=== PATIENT | male | born 1975 | race Caucasian/White ===

== ENCOUNTER 2019-09-23 06:48 | Outpatient (CLI) | payer BC, SELFPAY ==
--- NOTE | ~2019-09-23 | MR_ITS ---
EXAMINATION: MR thoracic spine wo con DATE: 09/23/2019 08:18 INDICATION: Left-sided numbness. Neck and back myopathy. TECHNIQUE: Magnetic resonance imaging (MRI) of the thoracic spine was performed without intravenous c ontrast. Sagittal localizer T1-weighted FSE of the cervical spine was obtained. Thoracic spine sequen shahriar included sagittal T2-weighted FSE, sagittal T1-weighted FSE, sagittal T2-weighted FS FSE, and axi al T2-weighted FSE. COMPARISON: None FINDINGS: There is 7 degrees dextrocurvature of thoracic spine. Vertebral body heights and interverte bral disc heights are normal in thoracic spine. There is a hemangioma in T7 vertebral body. The discs do not extend beyond the endplate margins. At T10-T11, there is severe right and moderate left facet joint osteoarthritis. There is multilevel mild facet joint osteoarthritis. There is mild neural fora renae stenosis bilaterally at T1-T2 and T10-T11. The spinal cord signal intensity is normal in thorac ic spine. IMPRESSION: 1. Mild thoracic spondylosis. Reviewed, dictated and finalized at location A.
--- NOTE | ~2019-09-23 | MR_ITS ---
EXAMINATION: MR cervical spine wo con DATE: 09/23/2019 08:17 INDICATION: Left-sided numbness. Neck and back myopathy. TECHNIQUE: Magnetic resonance imaging (MRI) of the cervical spine was performed without intravenous c ontrast. Sequences included sagittal T2-weighted FSE, sagittal T2-weighted FS FSE, sagittal T1-weight ed FSE, axial MERGE, and axial T2-weighted FSE. COMPARISON: None FINDINGS: There is 7 degrees levocurvature of cervical spine. Vertebral body heights are normal. Ther e is mildly decreased disc height at C5-C6 and moderately decreased disc height at C6-C7. There is in creased T2-weighted signal intensity in the right side of the spinal cord at C5-C6, consistent with m yelomalacia. The following disc levels are specifically discussed: C2-C3: The disc does not extend beyond the endplate margin. There is moderate right uncovertebral devyn nt osteoarthritis. There is mild bilateral facet joint osteoarthritis. There is moderate right neural foraminal stenosis. There is no central canal stenosis. C3-C4: The disc does not extend beyond the endplate margin. There is no uncovertebral joint osteoarth ritis. There is mild right and moderate left facet joint osteoarthritis. There is no neural foraminal stenosis. There is no central canal stenosis. C4-C5: The disc does not extend beyond the endplate margin. There is no uncovertebral joint osteoarth ritis. There is mild bilateral facet joint osteoarthritis. There is no neural foraminal stenosis. The re is no central canal stenosis. C5-C6: The disc is bulging with superimposed right central extrusion. There is severe right and mild left uncovertebral joint osteoarthritis. There is mild bilateral facet joint osteoarthritis. There is moderate right and mild left neural foraminal stenosis. There is severe central canal stenosis with ventral and dorsal indentation of the spinal cord. C6-C7: The disc is bulging. There is severe bilateral uncovertebral joint osteoarthritis. There is no facet joint osteoarthritis. There is moderate bilateral neural foraminal stenosis. There is moderate central canal stenosis with ventral and dorsal indentation of the spinal cord. C7-T1: The disc does not extend beyond the endplate margin. There is no uncovertebral joint osteoarth ritis. There is moderate bilateral facet joint osteoarthritis. There is no neural foraminal stenosis. There is no central canal stenosis. IMPRESSION: 1. Severe cervical spondylosis. 2. Myelomalacia at C5-C6. Reviewed, dictated and finalized at location A.
== END 2019-09-23 06:49 | disposition home or self-care (01) ==
LOC: CHSIMG 06:53
PROVIDERS: PCP Internal Medicine; Visit Provider Internal Medicine
DX: G72.9 Myopathy, unspecified (principal); M54.2 Cervicalgia; M54.9 Dorsalgia, unspecified
CPT/HCPCS: 72141; 72146

== ENCOUNTER 2021-02-06 09:29 | Outpatient (CLI) | payer BC, SELFPAY ==
--- NOTE | ~2021-02-06 | XR_ITS ---
EXAMINATION: XR sacroiliac joints min 3V DATE: 02/06/2021 10:14 INDICATION: Back and left leg pain. TECHNIQUE: 3 views of the sacroiliac joints were obtained. COMPARISON: None. FINDINGS: Bone alignment is normal. No fracture. The sacroiliac joints are normal. IMPRESSION: 1. Normal sacroiliac joints. Reviewed, dictated and finalized at location A. MBLY ASSOCIATE
--- NOTE | ~2021-02-06 | XR_ITS ---
XR hip LT min 2V 02/06/2021 10:14 Indication: Left hip pain Procedure: 2 views left hip Comparison: No prior studies for comparison. Findings: No fracture, subluxation or dislocation. There is anatomic alignment. Surrounding osseous s tructures within normal limits. No soft tissue abnormality. No foreign bodies. Impression: 1: No acute bone or joint abnormality. Reviewed, dictated and finalized at location B. CAL INSTRUMENTS SUPERVISOR Impression: 1: No acute bone or joint abnormality.
--- NOTE | ~2021-02-06 | XR_ITS ---
EXAMINATION: XR lumbar spine 2-3V DATE: 02/06/2021 10:14 INDICATION: Back and left leg pain. TECHNIQUE: 4 views of lumbar spine were obtained. COMPARISON: None. FINDINGS: There is 9 degrees levocurvature of lumbar spine. There are Schmorl's nodes at multiple lev els. Intervertebral disc heights are normal. There are endplate osteophytes at all levels. There is m ultilevel mild facet joint osteoarthritis. IMPRESSION: 1. Mild lumbar spondylosis. Reviewed, dictated and finalized at location A. RINTENDENT PIPELINES IMPRESSION: 1. Mild lumbar spondylosis.
== END 2021-02-06 09:30 | disposition home or self-care (01) ==
LOC: CHSIMG 09:31
PROVIDERS: PCP Internal Medicine; Visit Provider Internal Medicine
DX: M54.9 Dorsalgia, unspecified (principal); M79.605 Pain in left leg
CPT/HCPCS: 72100; 72202; 73502

== ENCOUNTER 2022-05-15 10:09 | Outpatient (CLI) | payer OTHER, SELFPAY ==
--- NOTE | ~2022-05-15 | XR_ITS ---
EXAMINATION: XR lumbar spine min 4V DATE: 05/15/2022 10:22 INDICATION: Spondylosis without myelopathy or radiculopathy TECHNIQUE: Anteroposterior, lateral in neutral, flexion and extension, and bilateral oblique views of the lumbar spine, and cone-down lateral view of the lumbosacral junction were obtained. COMPARISON: 02/06/2021 FINDINGS: Vertebral body alignment is normal. There is no hypermobility with flexion or extension. Th e vertebral body heights are normal. There is no fracture. There is mild loss of intervertebral disc space height at L5-S1. Small degenerative osteophytes project from the anterior endplates of multiple vertebral bodies. There is multilevel mild facet joint osteoarthritis. IMPRESSION: 1. Mild lumbar spondylosis without acute findings or significant interval change. Reviewed, dictated and finalized at location A. TIC ATTACHER ZIGZAG IMPRESSION: 1. Mild lumbar spondylosis without acute findings or significant interval becky torres
== END 2022-05-15 10:10 | disposition home or self-care (01) ==
LOC: ANHIMG 10:12
PROVIDERS: PCP Internal Medicine; Visit Provider Neurological Surgery
DX: M47.816 Spondylosis without myelopathy or radiculopathy, lumbar region (principal)
CPT/HCPCS: 72110

== ENCOUNTER 2023-01-18 08:32 | Outpatient (CLI) | payer OTHER, SELFPAY ==
--- NOTE | 2023-01-18 08:52 | ECG_ITS ---
Measurements Intervals [place] Rate: 64 P: 55 ID: 151 QRS: 65 QRSD: 108 T: 70 QT: 417 QTc: 431 Interpretive Statements SINUS RHYTHM DELAYED PRECORDIAL R/S TRANSITION BASELINE WANDER- V2-V5 BORDERLINE ECG NO PREVIOUS ECG AVAILABLE FOR COMPARISON Electronically Signed On 01-18-2023 9:18:51 [place] by Prashanth Telles D.O.
[2023-01-18 08:59] LABS: Hemoglobin 15.4 g/dL (14.0-18.0); Mean Corpuscular HGB Conc 34.2 g/dL (32.0-36.0); Mean Corpuscular Hemoglobin 32.8 pg (27.0-31.0); Mean Corpuscular Volume 95.9 fL (78.0-102.0); Mean Platelet Volume 8.2 fl (8.7-11.0); Platelet Count Result 237 K/mm3 (150-420); Red Blood Count 4.69 M/mm3 (4.70-6.10); White Blood Count 8.1 K/mm3 (4.8-10.8)
[2023-01-18 09:00] LABS: Appearance Urine Cloudy (Clear); Bilirubin Urine Negative (Negative); Blood Urine Negative (Negative); Color Urine Yellow (Yellow); Glucose Urine UA Negative (Negative); Ketones Urine 1+ (Negative); Leukocyte Esterase Ur Negative LEU/UL (Negative); Nitrate Urine Negative (Negative); Protein Urine Trace (Negative); Specific Grav Ur >= 1.030 (1.010-1.020); Urobilinogen Urine 0.2 mg/dL (0.2-1.0)
[2023-01-18 09:05] LABS: Add Urine Microscopic? YES; Amorphous Sediment Urine Few; Bacteria Urine 2+ /hpf; RBC Urine None seen /hpf (0-2); WBC Urine None seen /hpf (0-3)
[2023-01-18 09:14] LABS: INR 0.9; Partial Thromboplastin Time 27.1 SEC (23.90-30.70); Prothrombin Time 10.3 Seconds (9.50-12.10)
[2023-01-18 09:59] LABS: Anion Gap 6 mmol/L (8-16); Blood Urea Nitrogen 11 mg/dL (7-18); Calcium 9.1 mg/dL (8.5-10.1); Carbon Dioxide 32 mmol/L (21-32); Chloride 103 mmol/L (98-108); Estimated Glomerular Filt Rate > 60; Glucose 118 mg/dL (70-99); Osmolality Calculated 292 mOsm/kg (285-295); Potassium 4.4 mmol/L (3.5-5.1); Sodium 141 mmol/L (136-145)
== END 2023-01-18 08:33 | disposition home or self-care (01) ==
LOC: CHSLAB 08:34
PROVIDERS: PCP Internal Medicine; Visit Provider Neurological Surgery
DX: Z01.818 Encounter for other preprocedural examination (principal); M48.062 Spinal stenosis, lumbar region with neurogenic claudication
CPT/HCPCS: 36415; 80048; 81001; 85027; 85610; 85730; 93005

== ENCOUNTER 2023-01-20 01:13 | Day surgery (SDC) | payer OTHER, SELFPAY ==
[2023-01-15 09:17] VITALS: BMI 25.4
--- NOTE | 2023-01-15 09:21 | PC.NURSE ---
Report to the Outpatient Waiting Room, entrance under the green pavilion located off [facility], at time 6:00 on date 01/20/23. Planned Procedure Time: 7:30. Time changes happen often and if your time is changed the preop area will call you the afternoon before. - You and your visitor will be asked to self-screen and do not enter if you have any COVID symptoms. - A mask is optional within the hospital at this time. Patients may have clear liquids (water, carbonated beverages, clear teas, apple juice) until 3 hours prior to surgery with a maximum of 20 ounces. - No food from midnight until time of surgery Take the following medications with a SIP of water the morning of surgery: NONE DO NOT STOP ANY OF YOUR OTHER PRESCRIPTION MEDICATIONS PRIOR TO SURGERY ?EXCEPT THE FOLLOWING Medications to discontinue per physician: N/A Date to take last dose: N/A Please no make-up, nail thai, hairspray, perfume, deodorant, or body powder the day of surgery. No jewelry (including any body piercings) or valuables the day of surgery, leave them at home. Please take a shower or bath the night before, or the morning of, surgery with an antibacterial soap. Wear comfortable, loose fitting clothing. - Jewelry must be removed prior to entering the operating room. Rings and piercings that are not removed may be cut off. - The hospital will not accept responsibility for valuables. - Please leave all valuables, including medications, at home the day of surgery. If you are going home after surgery, a licensed dolly driver must drive you home. - NO public transportation without another adult if you receive anesthesia. - We recommend that an adult stay with you for 24 hours following discharge. - We also recommend that you do not drive, make important decision, drink alcoholic beverages, or take any drugs that were not prescribed by your health care provider for at least 24 hours after your discharge time. Follow any additional instructions given to you from your surgeon. If you or anyone in your household have experienced Covid symptoms in the past week, please notify your surgeon or the nurse liaison at the phone number below for possible testing. Telephone instructions given to FRANKY MCMULLEN and asked if any additional questions and then verbalized understanding. Patient advised to call surgeon office or pre surgery nurse liaison [phone] if any additional questions.
[2023-01-20] VITALS (8 sets, daily range): BP systolic 102–127; BP diastolic 71–84; PULSE 51–70; RESP 12–20; TEMP 36.5–37.1; O2SAT 96–100
--- NOTE | ~2023-01-20 | XR_ITS ---
EXAMINATION: XR fluoroscopy no charge DATE: 01/20/2023 09:49 INDICATION: Lumbar decompression, L4-L5. TECHNIQUE: A single lateral intraoperative fluoroscopic view of the lumbar spine was obtained. I was not present. Fluoroscopy exposure time was 5 seconds. COMPARISON: Lumbar spine radiographs 05/15/2022 FINDINGS: There is mild lumbar spondylosis. An instrument overlies the posterior elements at L4-L5. IMPRESSION: 1. Mild lumbar spondylosis. Reviewed, dictated and finalized at location A. P MAINT ENG IMPRESSION: 1. Mild lumbar spondylosis.
[2023-01-20] MEDS: SCOPOLAMINE 1.5 MG PATCH TRANSDERM (07:00)
[2023-01-20] MEDS: LACTATED RINGERS 1,000 ML 30 ML IV CONT ×2 (07:00→09:50)
--- NOTE | 2023-01-20 07:47 | WPDANESEPPF ---
Anes - Initial Pre Proc Eval Procedure: Operation Date: 01/20/23 08:00 Proposed Procedures p Lumbar Decompression L 4-5 - Sandra Park MD Date/Time: 01/20/23 07:47 Surgeon: Sandra Park MD Pre Op Diagnosis: Lumbar Stenosis Patient Data Age: 47 Gender: M Height: 1.98 m Weight: 99.8 kg Allergies Allergy/AdvReac Type Severity Reaction Status Date / Time No Known Allergies Allergy Verified 01/15/23 09:16 Home Medications Medication Instructions Recorded Confirmed Type pantoprazole 40 mg tablet,delayed 40 mg PO QAM 04/07/22 01/15/23 History release Patient hx anesthesia problems: post op nausea/vomiting (scopolamine patch applied) Family hx anesthesia problems: none Results Review: All pre-operative results and documents have been reviewed as part of the pre-operative evaluation. [facility] Past Medical History Medical History Back pain Lumbar radiculopathy Lumbar spondylosis Neck pain Surgical History Surgical History H/O neck surgery History of lumbar surgery Family History Family History Other Diabetes mellitus Heart disease Hypertension Social History Social History Smoking packs per day: 1 Smoking cigarettes per day: 20.0 Years smoked: 10 Smoking pack-years: 10.00 Smoking status: Current every day smoker Tobacco type: cigarettes Alcohol intake: current Drinks per week: 8 Substance use: never Substance use type: does not use Lack of Transportation: No Lack of Food: Never True Current Housing: I Have Housing Concerned About Future Housing: No Difficulty Paying Gas/Electric Bills: No Difficulty Paying for Meds: No Currently Unemployed: No Education: Decline to Answer Difficulty w/ Childcare or Family Care: No Living arrangements: with family 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 Informed Consent: The patient's anesthetic plan and its attendant risks and benefits were discussed with the patient/family/POA. Questions were solicited and answers provided to the satisfaction of the patient/family/POA.
--- NOTE | 2023-01-20 08:07 | PM.IMHP ---
H&P: HPI History of Present Illness Date/Time: 01/20/23 08:07 Chief Complaint: Wesley Stock is a 47 year old male who originally presented and was seen by SKYLAR White with a referral from Dr. Navarrete for evaluation of low back pain with a subjective complaints of left leg weakness.? The patient reports a longstanding history of low back pain, dating back to 2014 , when he underwent a L5-S1 micro diskectomy at [facility] with Dr. Jefferson. he stated that after that surgery he had resolution of his symptoms for approximately 2 years.? The patient has also undergone an ACDF C5-6-[address] Whitaker and 2019.? His neck pain as well as upper extremity radicular symptoms have completely resolved and remain pain free. In 2016 he experienced recurrence of his bilateral low back pain as well as pain to his left lower extremity along with weakness. ? The patient reports that he has bilateral low back pain that extends in a posterior distribution from his buttock to his toes.? He does report a sensation of numbness, tingling, burning, weakness and a heavy sesation to his left lower extremity.? He denies any bowel or bladder incontinence.? He reports that with extended periods of walking and upon sitting his back pain remains. He does state that the pain to his bilateral low back and left lower extremity is also exacerbated with sitting and standing for long periods of time, walking for long distances, ascending and descending stairs and standing on concrete.? He does report that his pain is improved with the application of heat and ice.? He describes his pain as sharp and a throbbing sensation.? He denies any gait dysfunction or falls.? He has recently completed physical therapy in January of 2022 which he reports as giving no benefit.? His primary care physician prescribed meloxicam and Cymbalta, both of which provided him with positive results, calms things down .? An MRI of the lumbar spine as well as AP lateral and dynamic plain x-rays of lumbar spine show progression of spondylotic changes at L4-5 with disc desiccation, loss of disc space height, disc bulge, which in concert with ligamentous hypertrophy contribute to moderate to severe central stenosis at L4-5, progressed from a 2021 study.? AP lateral and dynamic plain x-rays? show multilevel spondylotic changes without significant listhesis or dynamic instability The patient is increasingly bothered by his symptoms.? He has had an epidural steroid injection? since our initial visit.? This gave significant temporary relief of his pain but did not last for longer than 1-2 weeks. He presents for lumbar decompression at L4-5 [facility] Past Medical History Medical History Back pain Lumbar radiculopathy Lumbar spondylosis Neck pain Surgical History Surgical History H/O neck surgery History of lumbar surgery Family History Family History Other Diabetes mellitus Heart disease Hypertension Social History Social History Smoking packs per day: 1 Smoking cigarettes per day: 20.0 Years smoked: 10 Smoking pack-years: 10.00 Smoking status: Current every day smoker Tobacco type: cigarettes Alcohol intake: current Drinks per week: 8 Substance use: never Substance use type: does not use Lack of Transportation: No Lack of Food: Never True Current Housing: I Have Housing Concerned About Future Housing: No Difficulty Paying Gas/Electric Bills: No Difficulty Paying for Meds: No Currently Unemployed: No Education: Decline to Answer Difficulty w/ Childcare or Family Care: No Living arrangements: with family 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
[2023-01-20] MEDS: ceFAZolin 2 GM/D5W 50 ML 2 GM/50 ML BAG IVPB (08:14)
--- NOTE | 2023-01-20 08:14 | WPDHPUPDATE1 ---
History and Physical Update Update Date/Time: 01/20/23 08:14 History and Physical has been reviewed, including an updated exam of the patient. There are NO changes in the patient's condition. Risks, benefits, and alternatives have been discussed and questions answered. Patient agrees to proceed with procedure.
[2023-01-20] MEDS: BUPivacaine HCL 0.5% 10 ML AMP INFILTRATE (08:55)
[2023-01-20] MEDS: LIDO 1%/EPINEPHRINE 1:100,000 50 ML VIAL 10 ML INFILTRATE (08:55)
--- NOTE | 2023-01-20 09:31 | W.PM.PROC2 ---
Procedure Note - Detailed Date of Procedure 01/20/23 Pre-op Diagnosis Lumbar Stenosis Post-op Diagnosis Same Procedure Performed lumbar laminectomy and foraminotomies L4-5 Surgeon Sandra Park MD Anesthesia General Indications Wesley Stock is a very pleasant? 47 year old? male who presents at the request of his primary care provider at with signs and symptoms of? claudicatory and radicular low back and lower extremity pain and sensory changes well as a subjective sense of weakness in the setting of? moderate to severe central stenosis at L4-5 on imaging.? Mr. Stock has tried treatments that include? a formal course of physical therapy in January 2022 without relief of his pain.? he has also had an epidural steroid injection targeting caudal to the lumbar stenosis that gave significant temporary relief of his pain but has not given lasting relief. In the office the most concerning symptom to the patient was that he is increasingly limited in terms of his overall activity by these symptoms.? He struggles even to sleep through the night without pain. The patient and I have had an extended discussion in the office today regarding the options for management of these clinical symptoms and radiographic findings. We have discussed the option of additional physical therapy or repeated interventional pain management strategies including HIRA or ablative procedures. In this case we have more specifically discussed that? as these have not given lasting relief to date, the likelihood repeated attempts would offer a different result is small. Finally, we have generally discussed the option of surgery. In the absence of functional deficits, I have explained that my preference is to exhaust non surgical options prior to consideration of surgery. However, we have discussed that as he has been unable to obtain durable relief of symptoms with non surgical measures that it would be very reasonable to consider surgical intervention. In this case we have discussed that surgery would likely entail a lumbar decompression at L4-5.?? We have discussed the indication and risks of surgery including but not limited to bleeding, infection, CSF leak, numbness weakness paralysis stroke coma even . He acknowledges the risks and asks us to proceed. Description of Procedure The patient was brought into the operating room where general anesthesia was induced.? Appropriate monitoring was obtained.? The patient was turned into a prone position on the Mariano table with a Christopher frame.? Extremities were padded.? The patient was secured with straps to the table.? Localization was performed using intraoperative fluoroscopy and the L4-5 levels were identified. The patient's back was prepped and draped sterilely.? A surgical time out was performed.? The planned incision was infused with local anesthetic.? The incision was made using a #10 skin blade.? Hemostasis was achieved. Self retaining retractors were placed and advanced.? The? L4? spinous process was identified and the muscle was dissected off of the spinous process and lamina of L4 using bovie electrocautery.? Self retaining retractors were advanced.? A curette was placed under the L4 lamina and the levels were confirmed again using intraoperative fluoroscopy.?Using a Jordon rongeur the spinous processes were removed at L4 Attention was first turned to L4-5 level.?? The residual spinous process of L4 was removed using a rongeur.? The lamina was drilled using a high speed vini drill with a matchstick tip.? The lamina was drilled lateral to the level of the facet complex until, inferiorly, ligament was visible.? The lamina was thinned and then dissected from the lamina using a curette.? The remaining lamina and medial facet at L4-5 were removed with kerossen punches.? The ligament was then carefully dissected away from the thecal sac and removed using kerossen punches.?The inferior epidural fat was dissected away from the thecal sac and removed.
== END 2023-01-20 11:05 | disposition home or self-care (01) ==
PROVIDERS: PCP Internal Medicine; Visit Provider Neurological Surgery
PROC: (CPT 63005; principal; 2023-01-20 08:00)
DX: M48.062 Spinal stenosis, lumbar region with neurogenic claudication (principal); M43.06 Spondylolysis, lumbar region; F17.210 Nicotine dependence, cigarettes, uncomplicated; Z98.890 Other specified postprocedural states; Z82.49 Family history of ischemic heart disease and other diseases of the circulatory system
CPT/HCPCS: 63047; 99199; A9270; J0690; J1100; J1170; J2250; J2405; J2704; J3010; J7120

== ENCOUNTER 2024-02-23 09:44 | Outpatient (CLI) | payer OTHER, SELFPAY ==
--- NOTE | ~2024-02-23 | XR_ITS ---
3 VIEWS LUMBAR SPINE Ordering provider: Lennox Ann MD History: . extreme low back pain, sweeping out grain bin X Wednesday . Comparison: None. FINDINGS: VERTEBRAL BODIES: No visible fracture or subluxation. Degenerative changes of the spine. DISK SPACES: Normal. SOFT TISSUES: Mild atherosclerotic changes of the aorta. IMPRESSION: No acute osseous abnormality lumbar spine. . Reviewed, dictated and finalized at location A. NE TEST CELL TECHNICIAN
== END 2024-02-23 09:45 | disposition home or self-care (01) ==
LOC: CHSIMG 09:46
PROVIDERS: PCP Internal Medicine; Visit Provider Internal Medicine
DX: M54.50 Low back pain, unspecified (principal)
CPT/HCPCS: 72100

== ENCOUNTER 2024-05-04 02:19 | Day surgery (SDC) | payer OTHER, SELFPAY ==
[2024-02-21 14:55] VITALS: BMI 25.4
--- NOTE | 2024-03-14 08:25 | SUR.PREOP ---
0740- Attempted to call patient, no answer. Attempted to notify patient's , [place], no answer. Left voicemail.
--- NOTE | 2024-03-14 08:31 | SUR.PREOP ---
Pt called in and left message on PAT nurse's phone. Pt is running a fever and will reschedule. Called pt and received VM. Message left requesting a call back.
--- OUTSIDE RECORDS SUMMARY | 2024-03-20 09:14 | XMS_ITS | Encounter Summary ---
Author Organization [facility] Address [address] [place] [address]. 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
--- OUTSIDE RECORDS SUMMARY | 2024-03-20 09:14 | XMS_ITS | Encounter Summary ---
Author Organization [facility] Address [address] [place] [address]. [place] [address] [place] [address] Care Team Providers Care Defective Cigarette Slitter Name Role Phone Lennox Ann MD Primary Care Provider [phone] Reason for Referral * Imaging (Routine) - Closed Specialty Diagnoses / Procedures Referred By Malina bonilla Referred To Contact RADIOLOGY Diagnoses Pain of lumbar spine Procedures MRI LUMB SPINE WWO CON MRI LUMB SPINE WWO CON David Tarango PA-C [address] [place] [address] Phone: tel: fax: Referral ID Status Reason Start Date Expiration Date Visits Re quested Visits Authorized [id number] Closed MRI 09/28/2023 09/27/2024 1 1 Reason for Visit * Imaging (Routine) - Closed Specialty Diagnoses / Procedures Referred By Meaganac chad Referred To Contact RADIOLOGY Diagnoses Pain of lumbar spine Procedures MRI LUMB SPINE WWO CON MRI LUMB SPINE WWO CON David Tarango PA-C [address] [place] [address] Phone: tel: fax: Referral ID Status Reason Start Date Expiration Date Visits Re quested Visits Authorized [id number] Closed MRI 09/28/2023 09/27/2024 1 1 Encounter Details Date Type Department Care Team (Latest Contact Info) Description 10/11/2023 8:44 AM CDT - 10/11/2023 11:59 PM CDT Hospital Encounter [facility] [address] [place] [address] David Tarango, ROSANNAC [address] [place] [address] Discharge Disposition: Home or Self Care (Routine Discharge) Social History Tobacco Use Types Packs/Day Years Used Date Smoking Tobacco: Never Assessed Sex and Gender Information Value Date Recorded Sex Assigned at Not on file 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 Interval postsurgical changes of L4-L5 laminectomy with ill-defined enhancement along the dorsal epidural compartment, laminectomy bed, and overlying paraspinal soft tissues, likely postoperative. Small residual central protrusion suggested at L4-L5. 2. Multilevel degenerative changes in the lumbar spine. Most severe foraminal narrowing at L3-L4 through L5-S1. Additional degenerative changes elsewhere as detailed. 3. Likely reactive/degenerative edema along the lumbar endplates. Ordered By: DAVID TARANGO Interpreted By: Felix Rosa MD, 10/13/2023 9:06 AM Narrative 10/13/2023 9:23 AM CDT DATE: 10/11/2023 9:34 AM INDICATION: Low back pain. Prior lumbar surgeries, most recently and January 2023 EXAMINATION: MRI lumbar spine without and with contrast. TECHNIQUE: Multiplanar and multisequence MRI images of the lumbar spine were obtained before and after uneventful intravenous administration of 15mL GADOBENATE DIMEGLUMINE 529 MG/ML IV SOLN. COMPARISON: 10/30/2022 FINDINGS: There are 5 lumbar type vertebral bodies designated as L1 through L5; using this numbering system, the conus medullaris terminates at T12 and appears unremarkable. Since the prior examination the patient has undergone interval laminectomy at L4-L5. There is ill-defined enhancement noted along and dorsal epidural compartment, laminectomy bed, and overlying paraspinal soft tissues, likely postoperative. Otherwise again seen are post surgical changes of prior left-sided laminotomy at L5-S1. Mid to lower lumbar levoscoliosis. Slight left lateral listhesis of L4 on L5. Slight retrolisthesis of L1 on L2 and L2 on L3. Otherwise the lumbar vertebral alignment, vertebral body heights, and facet alignment are maintained. Multilevel degenerative changes are evident in the lumbar spine with disc degeneration, endplate osteophytes, ligamentum flavum thickening, and facet hypertrophy noted. Likely reactive/degenerative edema noted along the L2-L3 more so than L4-L5 endplates. There is a small ovoid focus of enhancement involving the posterior right iliac bone, unchanged from MRI examinations dating back to 2021, likely benign. Multilevel disc desiccation and loss of intervertebral disc height. Scattered Schmorl's nodes noted along the endplates. Imaged portions of the soft tissues reveal no definite acute findings elsewhere. L1-L2: Slight retrolisthesis. Disc bulge. Endplate osteophytes. Ligamentous/facet hypertrophy. No significant canal stenosis. Mild to moderate right and mild left foraminal narrowing. L2-L3: Retrolisthesis. Disc bulge with extension into the foramina. Endplate osteophytes. Ligamentous/facet hypertrophy. Mild canal stenosis. Moderate right and mild left foraminal narrowing. L3-L4: Disc bulge with extension into the foramina. Endplate osteophytes. Ligamentous/facet hypertrophy. Bilateral lateral recess and mild to moderate canal stenosis. Moderate to severe right and moderate left foraminal narrowing. L4-L5: Post surgical changes of laminectomy. Disc bulge with extension into the foramina. Superimposed central protrusion. Facet hypertrophy. Endplate osteophytes. Residual lateral recess and mild to moderate canal stenosis. Severe left and moderate to severe right foraminal narrowing. L5-S1: Postsurgical changes of prior left-sided laminotomy. Disc bulge with extension into the foramina. Facet hypertrophy. Endplate osteophytes. No significant canal stenosis. Moderate to severe left and mild to moderate right foraminal narrowing. Procedure Note Felix Rosa MD - 10/13/2023 DATE: 10/11/2023 9:34 AM INDICATION: Low back pain. Prior lumbar surgeries, most recently andNov2022 EXAMINATION: MRI lumbar spine without and with contrast. TECHNIQUE: Multiplanar and multisequence MRI images of the lumbar spine were obtainedbefore and after uneventful intravenous administration of 15mL GADOBENATEDIMEGLUMINE 529 MG/ML IV SOLN. COMPARISON: 10/30/2022 FINDINGS: There are 5 lumbar type vertebral bodies designated as L1 through L5;using this numbering system, the conus medullaris terminates at T12 andappears unremarkable. Since the prior examination the patient has undergone interval laminectomyat L4- L5. There is ill-defined enhancement noted along and dorsal epiduralcompartment, laminectomy bed, and overlying paraspinal soft tissues,likely postoperative. Otherwise again seen are post surgical changes ofprior left-sided laminotomy at L5-S1. Mid to lower lumbar levoscoliosis. Slight left lateral listhesis of L4 onL5. Slight retrolisthesis of L1 on L2 and L2 on L3. Otherwise the lumbarvertebral alignment, vertebral body heights, and facet alignment aremaintained. Multilevel degenerative changes are evident in the lumbarspine with disc degeneration, endplate osteophytes, ligamentum flavumthickening, and facet hypertrophy noted. Likely reactive/degenerativeedema noted along the L2-L3 more so than L4-L5 endplates. There is a smallovoid focus of enhancement involving the posterior right iliac bone,unchanged from MRI examinations dating back to 2021, likely benign.Multilevel disc desiccation and loss of intervertebral disc height.Scattered Schmorl's nodes noted along the endplates. Imaged portions of the soft tissues reveal no definite acute findingselsewhere. L1-L2: Slight retrolisthesis. Disc bulge. Endplate osteophytes.Ligamentous/facet hypertrophy. No significant canal stenosis. Mild tomoderate right and mild left foraminal narrowing. L2-L3: Retrolisthesis. Disc bulge with extension into the foramina.Endplate osteophytes. Ligamentous/facet hypertrophy. Mild canal stenosis.Moderate right and mild left foraminal narrowing. L3-L4: Disc bulge with extension into the foramina. Endplate osteophytes.Ligamentous/facet hypertrophy. Bilateral lateral recess and mild tomoderate canal stenosis. Moderate to severe right and moderate leftforaminal narrowing. L4-L5: Post surgical changes of laminectomy. Disc bulge with extensioninto the foramina. Superimposed central protrusion. Facet hypertrophy.Endplate osteophytes. Residual lateral recess and mild to moderate canalstenosis. Severe left and moderate to severe right foraminal narrowing. L5-S1: Postsurgical changes of prior left-sided laminotomy. Disc bulgewith extension into the foramina. Facet hypertrophy. Endplate osteophytes.No significant canal stenosis. Moderate to severe left and mild tomoderate right foraminal narrowing. IMPRESSION: 1. Interval postsurgical changes of L4-L5 laminectomy with ill- definedenhancement along the dorsal epidural compartment, laminectomy bed, andoverlying paraspinal soft tissues, likely postoperative. Small residualcentral protrusion suggested at L4- L5. 2. Multilevel degenerative changes in the lumbar spine. Most severeforaminal narrowing at L3-L4 through L5-S1. Additional degenerativechanges elsewhere as detailed. 3. Likely reactive/degenerative edema along the lumbar endplates. Ordered By: DAVID TARANGO Interpreted By: Felix Rosa MD, 10/13/2023 9:06 AM David Tarango PA-Matt MRI Final Resul t documented in this encounter Visit Diagnoses Diagnosis Pain of lumbar spine Lumbago documented in this encounter Administered Medications Inactive Administered Medications - up to 3 most recent administrations Medication Order MAR Action Action Date Dose Rate Site gadobenate dimeglumine (MULTIHANCE) 529 MG/ML injection 15 mL 15 mL, Intravenous, IMG once as needed, Contrast, 1 dose, Starting on Wed10/11/23 at 0935, Until Wed10/11/23 at 0935 Given 10/11/2023 9:35 AM CDT 15 mLs documented in this encounter Care Teams Defective Cigarette Slitter Relationship Specialty Start Date End Date Lennox Ann MD [address] [place] [id number] PCP - General INTERNAL MEDICINE 01/16/19 documented as of this encounter
--- OUTSIDE RECORDS SUMMARY | 2024-03-20 09:14 | XMS_ITS | Encounter Summary ---
Author Organization [facility] Address [address] [place] [address]. [place] [address] [place] [address] Care Team Providers Care Director Heart Name Role Phone Lennox Ann MD Primary Care Provider [phone] Reason for Visit * Reason Comments Hand Injury Encounter Details Date Type Department Care Team (Late st Contact Info) Description 02/08/2024 9:41 AM DIET THERAPIST - 02/08/2024 10:53 AM [facility] Emergency [facility] [place] [address] Isaac Sam MD [address] [place] [id number] Hand Injury Discharge Disposition: Home or Self Care (Routine Discharge) Social History Tobacco Use Types Packs/Day Years Used Date Smoking Tobacco: Every Day Cigarettes Smokeless Tobacco: Never Tobacco Cessation:Ready to Q uit: Not Asked; Counseling Given: Not Answered Alcohol Use Standard Drinks/Week Comments Yes 0 (1 standard drink = 0.6 oz pur e alcohol) Sex and Gender Information Value Date Recorded Sex Assigned at Not on file Legal Sex Male 5:51 PM DIET 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 Gender Identity Not on file Sexual Orientation Not on file documented as of this encounter Last Filed Vital Signs Vital Sign Reading Time Taken Comments Blood Pressure 151/83 02/08/2024 9:45 AM DIET THERAPIST Pulse 90 02/08/2024 9:45 AM DIET THERAPIST Temperature 37.3 ??C (99.2 ??F) 02/08/2024 9:45 AM CS T Respiratory Rate 18 02/08/2024 9:45 AM DIET THERAPIST Oxygen Saturation 99% 02/08/2024 10:30 AM DIET THERAPIST Inhaled Oxygen Concentration - - Weight 99.8 kg (220 lb) 02/08/2024 9:45 AM DIET THERAPIST Height 198.1 cm (6' 6 ) 02/08/2024 9:45 AM DIET THERAPIST Body Mass Index 25.42 02/08/2024 9:45 AM DIET THERAPIST documented in this encounter Discharge Instructions * Discharge Instructions* Isaac Sam MD - 02/08/2024 10:33 AM DIET THERAPIST Recommend continuing to take ibuprofen 600 mg 3 times a day with meals to reduce inflammation THERAPIST * Attachments The following attachments cannot be sent through Care Everywhere. * Crush Injury (Hungarian) * Tendonitis Discharge Instructions (Hungarian) documented in this encounter Medications at Time of Discharge pantoprazole EC (PROTONIX) 20 MG tablet Take 1 tablet (20 mg total) by mouth daily. documented as of this encounter ED Notes * Isaac Sam MD - 02/08/2024 9:43 AM CST eMERGENCY dEPARTMENT eNCOUnter CHIEF COMPLAINT Chief Complaint Patient presents with Hand Injury HPI HPI Wesley Stock is a 48-year-old male who presents to the ER with a complaint of left hand injury. Patient was accidentally struck in his left hand about a month ago forcibly from a piece of machinery. He is right-hand dominant. Over time he said progressive decreased mobility at the thumb along with pain. He has not been seen yet for this. ALLERGIES Review of patient's allergies indicates: Allergen Reactions Hydrocodone Hallucinations CURRENT MEDICATIONS Current Outpatient Medications Medication Sig pantoprazole EC (PROTONIX) 20 MG tablet Take 1 tablet (20 mg total) by mouth daily. PAST MEDICAL HISTORY History reviewed. No pertinent past medical history. SURGICAL HISTORY Past Surgical History: Procedure Laterality Date LAMINECTOMY,LUMBAR SPINAL FUSION,ANT,EA ADNL LEVEL SOCIAL HISTORY Social History Socioeconomic History Marital status: Tobacco Use Smoking status: Every Day Types: Cigarettes Smokeless tobacco: Never Substance and Sexual Activity Alcohol use: Yes Drug use: Never FAMILY HISTORY No family history on file. REVIEW OF SYSTEMS Review of Systems All other ROS negative unless noted above in HPI. PHYSICAL EXAM Physical Exam Filed Vitals: 02/08/24 0945 BP: (!) 151/83 Pulse: 90 Resp: 18 Temp: 99.2 ??F (37.3 ??C) TempSrc: Temporal SpO2: 99% Weight: 99.8 kg (220 lb) Height: 1.981 m (6' 6 ) The patient is a well developed and well nourished adult male in mild painful distress, alert and oriented. HEENT: PERRL, EOMI Throat without lesions, mucous membranes moist NECK: Supple without adenopathy or rigidity CHEST: Respirations are easy and unlabored EXT: No clubbing, cyanosis, edema, tenderness to the base of the first metacarpal with painful and limited range of motion, wrist is not affected NEURO: CN II-XII intact, no focal weakness SKIN: No rash or significant lesions EKG RADIOLOGY XR HAND LT 3V Final Result by User, [id number] (02/07 1024) [address] [place] [address] Examination: Left hand. Exam time: 0929 hours. Clinical history: Pain after injury. Comparison: 02/21/2008. Technique: Three views. Findings: No fracture, dislocation or other acute bony abnormality is identified. No other significant bone or joint abnormality is noted. The soft tissues are unremarkable. IMPRESSION: No acute findings. Ordered By: ISAAC SAM Interpreted By: Conrado Amezcua MD, 02/08/2024 10:07 AM LABS No results found for this visit on 02/08/24. ED MEDICATIONS Medications - No data to display PROCEDURES Procedures Patient is provided a brace with Velcro straps. CONSULTS: ED COURSE & MEDICAL DECISION MAKING [facility] ED Course as of 02/08/24 1033 Tue Feb 08, 2024 1025 XR HAND LT 3V X-ray report noted and negative [WM] ED Course User Index [WM] Isaac Sam MD Patient presents with increasing pain and restricted range of motion after remote blunt trauma. I suspect he is developing tendinitis. Will obtain diagnostic imaging and anticipate referral to orthopedics. He is taking ibuprofen at home which will recommend he continue and call orthopedics to schedule follow-up. FINAL IMPRESSION SNOMED CT(R) 1. Hand crush injury, left, initial encounter CRUSH INJURY OF LEFT HAND [facility] [address] [address] Schedule an appointment as soon as possible for a visit New Prescriptions No medications on file Isaac Sam MD 02/08/24 1033 THERAPIST * Gris Cabrera RN - 02/08/2024 9:40 AM CST Left hand injury - one month ago pt was turning on a piece of machinery and the handle flipped ontoleft hand. Pt reports he was able to tolerate the pain since injury, although the past week pt has increase pain extending from thumb to wrist. Pt reports a burning sensation. Pt denies pain with wrist movement. THERAPIST documented in this encounter Plan of Treatment Not on file documented as of this encounter Procedures Procedure Name Priority Date/Time Associated Diagnosis Comments XR HAND LT 3V STAT 02/08/2024 10:08 AM DIET THERAPIST documented in this encounter Results * XR HAND LT 3V (02/08/2024 10:08 AM DIET THERAPIST) Anatomical Region Laterality Modality Hand Radiographic Dinorah ging 02/08/2024 10:0 7 AM DIET THERAPIST Impressions 02/08/2024 10:23 AM DIET THERAPIST IMPRESSION: No acute findings. Ordered By: ISAAC SAM Interpreted By: Conrado Amezcua MD, 02/08/2024 10:07 AM Narrative 02/08/2024 10:23 AM DIET THERAPIST [address] [place] [address] Examination: Left hand. Exam time: 0929 hours. Clinical history: Pain after injury. Comparison: 02/21/2008. Technique: Three views. Findings: No fracture, dislocation or other acute bony abnormality is identified. No other significant bone or joint abnormality is noted. The soft tissues are unremarkable. Procedure Note Conrado Amezcua MD - 02/08/[address] [place] [address] Examination: Left hand. Exam time: 0929 hours. Clinical history: Pain after injury. Comparison: 02/21/2008. Technique: Three views. Findings: No fracture, dislocation or other acute bony abnormality isidentified. No other significant bone or joint abnormality is noted. Thesoft tissues are unremarkable. IMPRESSION: No acute findings. Ordered By: ISAAC SAM Interpreted By: Conrado Amezcua MD, 02/08/2024 10:07 AM Isaac Sam MD GENERAL IMAGING Final Result documented in this encounter Visit Diagnoses Diagnosis Hand crush injury, left, initial encounter- Primary documented in this encounter Care Teams Director Heart Relationship Specialty Start Date End Date Lennox Ann MD [address] [place] [phone] PCP - General INTERNAL MEDICINE 01/16/19 documented as of this encounter
--- OUTSIDE RECORDS SUMMARY | 2024-03-20 09:14 | XMS_ITS | Encounter Summary ---
Author Organization [facility] Address [address] [place] [address]. 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
--- OUTSIDE RECORDS SUMMARY | 2024-03-20 09:14 | XMS_ITS | Encounter Summary ---
Author Organization [facility] Address [address] [place] [address]. [place] [address] [place] [address] Care Team Providers Care Railway Signalling Engineer Name Role Phone Lennox Ann MD Primary Care Provider [phone] Encounter Details Date Type Department Care Team (Late st Contact Info) Description 03/12/2022 Orders Only [facility] [address] [place] [address] Lennox Ann MD [address] [place] [address] Social History Tobacco Use Types Packs/Day Years Used Date Smoking Tobacco: Never Assessed Sex and Gender Information Value Date Recorded Sex Assigned at Not on file Legal Sex Male 5:51 PM WHOLESALER Gender Identity Not on file Sexual Orientation Not on file COVID-19 Exposure Response Date Recorded In the last 10 days, have yo u been in contact with someone who was confirmed or suspected to have Coronavirus/COVID-19? No / Unsure 03/12/2022 1:20 PM WHOLESALER documented as of this encounter Plan of Treatment Not on file documented as of this encounter Results * HEMOGLOBIN, GLYCOSYLATED (03/12/2022 1:27 PM WHOLESALER) HGB A1C 5.4 <5.7 % 03/12/2022 1:44 PM WHOLESALER [facility] Comment: 5.7 TO 6.4% INCREASED RISK OF DIABETES > OR = 6.5% CONSISTENT WITH DIABETES PER ADA GUIDELINES ESTIMATED AVG GLUCOSE 108 70 - 140 MG/DL 03/12/2022 1:44 PM [facility] 03/12/2022 1:27 PM WHOLESALER Lennox Ann MD LABORATORY Final Result [facility] [address] [place] [address], * (ABNORMAL) BASIC METABOLIC PANEL (03/12/2022 1:27 PM WHOLESALER) SODIUM S/P/B 138 136 - 145 MMOL/L 03/12/2022 1:51 PM [facility] POTASSIUM S/P/B 4.0 3.5 - 5.1 MMOL/L 03/12/2022 1:51 PM [facility] CHLORIDE S/P/B 105 98 - 107 MMOL/L 03/12/2022 1:51 PM [facility] CO2 27.7 21.0 - 32.0 MMOL/L 03/12/2022 1:51 PM [facility] GLUCOSE 101(H) 70 - 99 MG/DL 03/12/2022 1:51 PM [facility] Comment: FASTING GLUCOSE 100 TO 125 MG/DL IS CONSISTENT WITH IMPAIRED FASTING GLUCOSE. FASTING GLUCOSE >125 MG/DL IS CONSISTENT WITH DIABETES. RANDOM GLUCOSE >200 MG/DL WITH HYPERGLYCEMIC SYMPTOMS IS CONSISTENT WITH DIABETES. PER ADA GUIDELINES BUN 12 6 - 24 MG/DL 03/12/2022 1:51 PM [facility] CREATININE S/P/B 0.96 0.70 - 1.30 MG/DL 03/12/2022 1:51 PM [facility] CALCIUM S/P/B 9.3 8.4 - 10.5 MG/DL 03/12/2022 1:51 PM [facility] ANION GAP 5.3 5.0 - 15.0 MMOL/L 03/12/2022 1:51 PM [facility] OSMOLALITY (CALC) 286 MOSM/KG 023 1:51 PM [facility] Comment:REFERENCE RANGE NOT ESTABLISHED GFR ESTIMATE >90 >89 ML/MIN/1. 73 M2 03/12/2022 1:51 PM WHOLESALER [facility] GFR NOTES GFR REFERENCE S: 03/12/2022 1:51 PM WHOLESALER [facility] Comment: THE ESTIMATED GFR IS CALCULATED USING THE 2020 CKD-EPI EQUATION. THE FOLLOWING CATEGORIES FOR GRADING RENAL FUNCTION ARE RECOMMENDED BY THE INTERNATIONAL SOCIETY OF NEPHROLOGY (KDIGO 2012 CLINICAL PRACTICE GUIDELINE). G1,NORMAL OR HIGH: >89 ml/min/1.73 m2 G2,MILDLY DECREASED: 60-89 ml/min/1.73 m2 G3A,MILDLY TO MODERATELY DECREASED: 45-59 ml/min/1.73 m2 G3B,MODERATELY TO SEVERELY DECREASED: 30-44 ml/min/1.73 m2 G4,SEVERELY DECREASED: 15-29 ml/min/1.73 m2 G5,KIDNEY FAILURE: <15 ml/min/1.73 m2 03/12/2022 1:27 PM WHOLESALER Lennox Ann MD LABORATORY Final Result [facility] [address] [place] [address], documented in this encounter Visit Diagnoses Diagnosis Impaired fasting glucose- Primary documented in this encounter Care Teams Railway Signalling Engineer Relationship Specialty Start Date End Date Lennox Ann MD [address] [place] [phone] PCP - General INTERNAL MEDICINE 01/16/19 documented as of this encounter
--- OUTSIDE RECORDS SUMMARY | 2024-03-20 09:14 | XMS_ITS | Encounter Summary ---
Author Organization [facility] Address [address] [place] [address]. [place] [address] [place] [address] Care Team Providers Care Professional Nursing Tutor Name Role Phone Lennox Ann MD Primary Care Provider [phone] Encounter Details Date Type Department Care Team (Late st Contact Info) Description 03/12/2022 1:20 PM ORACLE ARCHITECT - 03/12/2022 11:59 PM ORACLE ARCHITECT Hospital Encounter [facility] [address] [place] [address] Lennox Ann MD [address] [place] [address] Discharge Disposition: Home or Self Care (Routine Discharge) Social History Tobacco Use Types Packs/Day Years Used Date Smoking Tobacco: Never Assessed Sex and Gender Information Value Date Recorded Sex Assigned at Not on file Legal Sex Male 5:51 PM ORACLE ARCHITECT Gender Identity Not on file Sexual Orientation Not on file COVID-19 Exposure Response Date Recorded In the last 10 days, have yo u been in contact with someone who was confirmed or suspected to have Coronavirus/COVID-19? No / Unsure 03/12/2022 1:20 PM ORACLE ARCHITECT documented as of this encounter Plan of Treatment Not on file documented as of this encounter Procedures Procedure Name Priority Date/Time Associated Diagnosis Comments HEMOGLOBIN, GLYCOSYLATED Routine 03/12/2022 1:27 PM ORACLE ARCHITECT Impaired fasting glucose BASIC METABOLIC PANEL Routine 03/12/2022 1:27 PM ORACLE ARCHITECT Impaired fasting glucose documented in this encounter Results * HEMOGLOBIN, GLYCOSYLATED (03/12/2022 1:27 PM ORACLE ARCHITECT) HGB A1C 5.4 <5.7 % 03/12/2022 1:44 PM ORACLE ARCHITECT [facility] Comment: 5.7 TO 6.4% INCREASED RISK OF DIABETES > OR = 6.5% CONSISTENT WITH DIABETES PER ADA GUIDELINES ESTIMATED AVG GLUCOSE 108 70 - 140 MG/DL 03/12/2022 1:44 PM ORACLE ARCHITECT [facility] 03/12/2022 1:27 PM ORACLE ARCHITECT Lennox Ann MD LABORATORY Final Result [facility] [address] [place] [address], * (ABNORMAL) BASIC METABOLIC PANEL (03/12/2022 1:27 PM ORACLE ARCHITECT) SODIUM S/P/B 138 136 - 145 MMOL/L 03/12/2022 1:51 PM ORACLE ARCHITECT [facility] POTASSIUM S/P/B 4.0 3.5 - 5.1 MMOL/L 03/12/2022 1:[address] [facility] CHLORIDE S/P/B 105 98 - 107 MMOL/L 03/12/2022 1:[address] [facility] CO2 27.7 21.0 - 32.0 MMOL/L 03/12/2022 1:[address] [facility] GLUCOSE 101(H) 70 - 99 MG/DL 03/12/2022 1:[address] [facility] Comment: FASTING GLUCOSE 100 TO 125 MG/DL IS CONSISTENT WITH IMPAIRED FASTING GLUCOSE. FASTING GLUCOSE >125 MG/DL IS CONSISTENT WITH DIABETES. RANDOM GLUCOSE >200 MG/DL WITH HYPERGLYCEMIC SYMPTOMS IS CONSISTENT WITH DIABETES. PER ADA GUIDELINES BUN 12 6 - 24 MG/DL 03/12/2022 1:[address] [facility] CREATININE S/P/B 0.96 0.70 - 1.30 MG/DL 03/12/2022 1:[address] [facility] CALCIUM S/P/B 9.3 8.4 - 10.5 MG/DL 03/12/2022 1:51 PM ORACLE ARCHITECT [facility] ANION GAP 5.3 5.0 - 15.0 MMOL/L 03/12/2022 1:51 PM ORACLE ARCHITECT [facility] OSMOLALITY (CALC) 286 MOSM/KG 023 1:51 PM ORACLE ARCHITECT [facility] Comment:REFERENCE RANGE NOT ESTABLISHED GFR ESTIMATE >90 >89 ML/MIN/1. 73 M2 03/12/2022 1:51 PM ORACLE ARCHITECT [facility] GFR NOTES GFR REFERENCE S: 03/12/2022 1:51 PM ORACLE ARCHITECT [facility] Comment: THE ESTIMATED GFR IS [...] FAILURE: <15 ml/min/1.73 m2 03/12/2022 1:27 PM ORACLE ARCHITECT Lennox Ann MD LABORATORY Final Result [facility] [address] [place] [address], documented in this encounter Visit Diagnoses Diagnosis Impaired fasting glucose documented in this encounter Care Teams Professional Nursing Tutor Relationship Specialty Start Date End Date Lennox Ann MD [address] [place] [id number] PCP - General INTERNAL MEDICINE 01/16/19 documented as of this encounter
--- OUTSIDE RECORDS SUMMARY | 2024-03-20 09:14 | XMS_ITS | Clinical Summary ---
Author Organization [facility] Address [address] [place] [address]. [place] [address] [place] [address] Care Team Providers Care Data Report Analyst Name Role Phone Lennox Ann MD Primary Care Provider [phone] Allergies Active Allergy Reactions Criticality Noted Date Comments Hydrocodone Hallucinations 02/08/2024 Medications pantoprazole EC (PROTONIX) 20 MG tablet Take 1 tablet (20 mg total) by mouth daily. Active Encounters Date Type Department Care Team Description 02/08/2024 9:41 AM SPECK DYER - 02/08/2024 10:53 AM [facility] Emergency [facility] [address] [place] [address] [place] [id number] Isaac Sam MD Hand Injury Discharge Disposition: Home or Self Care (Routine Discharge) 02/08/2024 Travel from Last 3 Months Social History Tobacco Use Types Packs/Day Years Used Date Smoking Tobacco: Every Day Cigarettes Smokeless Tobacco: Never Tobacco Cessation:Ready to Q uit: Not Asked; Counseling Given: Not Answered Alcohol Use Standard Drinks/Week Comments Yes 0 (1 standard drink = 0.6 oz pur e alcohol) Sex and Gender Information Value Date Recorded Sex Assigned at Not on file Legal Sex Male 5:51 PM SPECK DYER Gender Identity Not on file Sexual Orientation Not on file Last Filed Vital Signs Vital Sign Reading Time Taken Comments Blood Pressure 151/83 02/08/2024 9:45 AM SPECK DYER Pulse 90 02/08/2024 9:45 AM SPECK DYER Temperature 37.3 ??C (99.2 ??F) 02/08/2024 9:45 AM CS T Respiratory Rate 18 02/08/2024 9:45 AM SPECK DYER Oxygen Saturation 99% 02/08/2024 10:30 AM SPECK DYER Inhaled Oxygen Concentration - - Weight 99.8 kg (220 lb) 02/08/2024 9:45 AM SPECK DYER Height 198.1 cm (6' 6 ) 02/08/2024 9:45 AM SPECK DYER Body Mass Index 25.42 02/08/2024 9:45 AM SPECK DYER Plan of Treatment Health Maintenance Due Date Last Done Comments Colorectal Cancer Screening Colonoscopy (10 Years) 1975 Annual Physical 1978 Pneumococcal Vaccine: Pediat rics (0 to 5 Years) and At-Risk Patients (6 to 64 Years) (1 of 2 - PCV) 1981 Hepatitis C 1993 DTaP, Tdap and Td Vaccines ( 1 - Tdap) 1994 Hepatitis B Vaccines (1 of 3 - 19+ 3-dose series) 1994 COVID-19 Vaccine (2023-2 5 season) 2023 Influenza Adult (#1) 2023 Meningococcal Vaccine Aged Out No edwin tanner eligible based on patient's age to complete this topic RSV Immunizations Under 20 Months Aged Out No longer eligible based on patient's age to complete this topic Procedures Procedure Name Priority Date/Time Associated Diagnosis Comments XR HAND LT 3V STAT 02/08/2024 10:08 AM SPECK DYER from Last 3 Months Results * XR HAND LT 3V (02/08/2024 10:08 AM SPECK DYER) Anatomical Region Laterality Modality Hand Radiographic Dinorah ging 02/08/2024 10:0 7 AM SPECK DYER Impressions 02/08/2024 10:23 AM SPECK DYER IMPRESSION: No acute findings. Ordered By: ISAAC SAM Interpreted By: Conrado Amezcua MD, 02/08/2024 10:07 AM Narrative 02/08/2024 10:23 AM SPECK D[facility]ER [address] [place] [address] Examination: Left hand. Exam time: 0929 hours. Clinical history: Pain after injury. Comparison: 02/21/2008. Technique: Three views. Findings: No fracture, dislocation or other acute bony abnormality is identified. No other significant bone or joint abnormality is noted. The soft tissues are unremarkable. Procedure Note Conrado Amezcua MD - 02/08/2024 [place] [id number] [facility] [place] [address] Examination: Left hand. Exam time: 0929 hours. Clinical history: Pain after injury. Comparison: 02/21/2008. Technique: Three views. Findings: No fracture, dislocation or other acute bony abnormality isidentified. No other significant bone or joint abnormality is noted. Thesoft tissues are unremarkable. IMPRESSION: No acute findings. Ordered By: ISAAC SAM Interpreted By: Conrado Amezcua MD, 02/08/2024 10:07 AM Isaac Sam MD GENERAL IMAGING Final Result from Last [address] [employer] [employer] Care Teams Data Report Analyst Relationship Specialty Start Date End Date Lennox Ann MD [address] [place] [address] PCP - General INTERNAL MEDICINE 01/16/19
--- OUTSIDE RECORDS SUMMARY | 2024-03-20 09:14 | XMS_ITS | Encounter Summary ---
Author Organization [facility] Address [address] [place] [address]. [place] [address] [place] [address] Care Team Providers Care Senior Clinical Research Scientist Name Role Phone Lennox Ann MD Primary Care Provider [phone] Encounter Details Date Type Department Care Team (Latest Contact Info) Description 05/12/2022 Travel Social History Tobacco Use Types Packs/Day Years Used Date Smoking Tobacco: Never Assessed Sex and Gender Information Value Date Recorded Sex Assigned at Not on file Legal Sex Male 5:51 PM FRINGING MACHINE OPERATOR Gender Identity Not on file Sexual Orientation Not on file COVID-19 Exposure Response Date Recorded In the last 10 days, have yo u been in contact with someone who was confirmed or suspected to have Coronavirus/COVID-19? No / Unsure 05/12/2022 8:54 AM FRINGING MACHINE OPERATOR documented as of this encounter Plan of Treatment Not on file documented as of this encounter Visit Diagnoses Not on filedocumented in this encounter Care Teams Senior Clinical Research Scientist Relationship Specialty Start Date End Date Lennox Ann MD [address] [place] [address] PCP - General INTERNAL MEDICINE 01/16/19 documented as of this encounter
--- OUTSIDE RECORDS SUMMARY | 2024-03-20 09:14 | XMS_ITS | Encounter Summary ---
Author Organization [facility] Address [address] [place] [address]. [place] [address] [place] [address] Care Team Providers Care Candy Decorator Name Role Phone Lennox Ann MD Primary Care Provider [phone] Encounter Details Date Type Department Care Team (Late st Contact Info) Description 03/05/2022 Orders Only [facility] [address] [place] [id number] Lennox Ann MD [address] [place] [address] Social History Tobacco Use Types Packs/Day Years Used Date Smoking Tobacco: Never Assessed Sex and Gender Information Value Date Recorded Sex Assigned at Not on file Legal Sex Male 5:51 PM SEARCH OPTIMIZATION ANALYST Gender Identity Not on file Sexual Orientation Not on file COVID-19 Exposure Response Date Recorded In the last 10 days, have yo u been in contact with someone who was confirmed or suspected to have Coronavirus/COVID-19? No / Unsure 03/05/2022 10:14 AM SEARCH OPTIMIZATION ANALYST documented as of this encounter Plan of Treatment Not on file documented as of this encounter Results * C-REACTIVE PROTEIN (03/05/2022 10:26 AM SEARCH OPTIMIZATION ANALYST) C-REACTIVE PROTEIN 0.28 <0.30 mg/dL 03/05/2022 11:00 AM SEARCH OPTIMIZATION ANALYST [facility] 03/05/2022 10:2 6 AM SEARCH OPTIMIZATION ANALYST us Lennox Ann MD LABORATORY Final Result Performing Organization Address [facility]/ZIP Co de Phone Number [facility] [address] [place] [address], * THYROID STIM HORMONE, TSH (03/05/2022 10:26 AM SEARCH OPTIMIZATION ANALYST) TSH 1.236 0.358 - 3.740 uIU/ML 03/05/2022 11:00 AM SEARCH OPTIMIZATION ANALYST [facility] Comment: ASSAY PERFORMED BY CHEMILUMINESCENT IMMUNOASSAY METHODOLOGY USING [employer]ION [employer]ENT. PATIENT RESULTS DETERMINED BY ASSAYS FROM DIFFERENT MANUFACTURERS AND/OR BY DIFFERENT METHODS MAY NOT BE COMPARABLE. 03/05/2022 10:2 6 AM SEARCH OPTIMIZATION ANALYST us Lennox Ann MD LABORATORY Final Result Performing Organization Address [facility] Co de Phone Number [facility] [address] [place] [id number], * (ABNORMAL) URINALYSIS (03/05/2022 10:26 AM SEARCH OPTIMIZATION ANALYST) COLOR (U) YELLOW 03/05/2022 11:36 AM SEARCH OPTIMIZATION ANALYST [facility] TRANSPARENCY CLEAR 03/05/2022 11:36 AM [facility] SPECIFIC GRAVITY (U) 1.030(H) 1.000 - 1.025 03/05/2022 11:36 AM [facility] Comment:EQUAL TO OR GREATER THAN U PH 6.0 5.0 - 8.0 03/05/2022 11:36 AM [facility] LEUKOCYTES (U) NEGATIVE NEGATIVE 03/05/2022 11:36 AM [facility] NITRITES NEGATIVE NEGATIVE 03/05/2022 11:36 AM [facility] PROTEIN (U) NEGATIVE NEGATIVE 03/05/2022 11:36 AM [facility] URINE GLUCOSE NEGATIVE NEGATIVE 03/05/2022 11:36 AM [facility] KETONES MG/DL (U) NEGATIVE NEGATIVE 03/05/2022 11:36 AM [facility] UROBILINOGEN 0.2 <1.0 EU/DL 03/05/2022 11:36 AM SEARCH OPTIMIZATION ANALYST [facility] BILIRUBIN (U) NEGATIVE NEGATIVE 03/05/2022 11:36 AM SEARCH OPTIMIZATION ANALYST [facility] BLOOD (U) NEGATIVE NEGATIVE 03/05/2022 11:36 AM SEARCH OPTIMIZATION ANALYST [facility] WBC/HPF 0-5 0 - 5 /HPF 03/05/2022 11:36 AM SEARCH OPTIMIZATION ANALYST [facility] RBC/HPF 0-5 0 - 5 /HPF 03/05/2022 11:36 AM SEARCH OPTIMIZATION ANALYST [facility] EPI/LPF RARE /LPF 03/05/2022 11:36 AM SEARCH OPTIMIZATION ANALYST [facility] BACTERIA (U) TRACE /HPF 03/05/2022 11:36 AM SEARCH OPTIMIZATION ANALYST [facility] MUCUS PRESENT 03/05/2022 11:36 AM [facility] URINE SPECIMEN OBTAINED BY CLEAN CATCH PROCEDURE / Unknown 03/05/2022 10:26 AM SEARCH OPTIMIZATION ANALYST Lennox Ann MD URINE ORDERABLES Final Result [facility] [address] [place] [address], * (ABNORMAL) CBC W/DIFF AUTOMATED (03/05/2022 10:26 AM SEARCH OPTIMIZATION ANALYST) WBC 8.96 4.00 - 10.80 x10'3/uL 03/05/2022 10:33 AM SEARCH OPTIMIZATION ANALYST [facility] RBC 4.92 4.50 - 6.10 x10'6/uL 03/05/2022 10:33 AM [facility] HGB 15.6 13.0 - 18.0 G/DL 03/05/2022 10:33 AM [facility] HCT 46.3 37.0 - 52.0 % 03/05/2022 10:33 AM [facility] MCV 94.1 78.0 - 100.0 FL 03/05/2022 10:33 AM [facility] MCH 31.7(H) 27.0 - 31.0 PG 03/05/2022 10:33 AM [facility] MCHC 33.7 33.0 - 36.0 G/DL 03/05/2022 10:33 AM [facility] RDW 12.1 11.5 - 14.5 % 03/05/2022 10:33 AM [facility] PLT 274 150 - 350 x10'3/uL 03/05/2022 10:33 AM [facility] MPV 8.1 7.4 - 10.4 FL 03/05/2022 10:33 AM [facility] CBC COMMENT NORMAL REFERENCE RANGE NOT ESTABLISHED FOR THE PROPORTIONAL LEUKOCYTE DIFFERENTIAL. 03/05/2022 10:33 AM [facility] NEUTROPHILS % 50.8 % 03/05/2022 10:33 AM [facility] LYMPHOCYTES % 34.7 % 03/05/2022 10:33 AM [facility] MONOCYTES % 9.5 % 03/05/2022 10:33 AM [facility] EOSINOPHILS % 4.0 % 03/05/2022 10:33 AM [facility] BASOPHILS % 0.7 % 03/05/2022 10:33 AM [facility] IMMATURE GRANS % 0.3 % 03/05/20 10:33 AM [facility] NRBC 0.0 % 03/05/2022 10:33 AM [facility] ABS. NEUTROPHILS 4.55 1.60 - 8.30 x10'3/uL 03/05/2022 10:33 AM [facility] ABS. LYMPHOCYTES 3.11 0.80 - 4.70 x10'3/uL 03/05/2022 10:33 AM [facility] ABS. MONOCYTES 0.85 0.00 - 1.50 x10'3/uL 03/05/2022 10:33 AM [facility] ABS. EOSINOPHILS 0.36 0.00 - 0.40 x10'3/uL 03/05/2022 10:33 AM [facility] ABS. BASOPHILS 0.06 0.00 - 0.20 x10'3/uL 03/05/2022 10:33 AM SEARCH OPTIMIZATION ANALYST [facility] ABS. IMMATURE GRANULOCYTES 0.03 0.00 - 0.03 x10'3/uL 03/05/2022 10:33 AM SEARCH OPTIMIZATION ANALYST [facility] ABS. NUCLEATED RBC'S 0.00 0.00 x10'3/uL 03/05/2022 10:33 AM [facility] 03/05/2022 10:2 6 AM SEARCH OPTIMIZATION ANALYST Lennox Ann MD LABORATORY Final Result [facility] [address] [place] [id number], * (ABNORMAL) LIPID PANEL (03/05/2022 10:26 AM SEARCH OPTIMIZATION ANALYST) CHOLESTEROL 205(H) <200 MG/DL 03/05/2022 11:00 AM [facility] Comment: THE NATIONAL LIPID ASSOCIATION AND THE NATIONAL CHOLESTEROL EDUCATION PROGRAM (NCEP) HAVE SET THE FOLLOWING GUIDELINES FOR TOTAL CHOLESTEROL IN ADULTS AGES 18 AND UP. DESIRABLE: <200 BORDERLINE HIGH: 200-239 HIGH: > OR = 240 TRIGLYCERIDES 155(H) <150 MG/DL 03/05/2022 11:00 AM SEARCH OPTIMIZATION ANALYST [facility] Comment: THE NATIONAL LIPID ASSOCIATION AND THE NATIONAL CHOLESTEROL EDUCATION PROGAM (NCEP) HAVE SET THE FOLLOWING GUIDELINES FOR TRIGLYCERIDES IN ADULTS AGES 18 AND UP. NORMAL: <150 BORDERLINE HIGH: 150 TO 199 HIGH: 200 TO 499 VERY HIGH: >499 HDL 57 >39 MG/DL 03/05/2022 11:00 AM SEARCH OPTIMIZATION ANALYST [facility] Comment: THE NATIONAL LIPID ASSOCIATION AND THE NATIONAL CHOLESTEROL EDUCATION PROGAM (NCEP) HAVE SET THE FOLLOWING GUIDELINES FOR HDL CHOLESTEROL IN ADULTS AGES 18 AND UP. MALES: >39 FEMALES: >49 LDL-C 117(H) <100 MG/DL 03/05/2022 11:00 AM SEARCH OPTIMIZATION ANALYST [facility] Comment: THE NATIONAL LIPID ASSOCIATION AND THE NATIONAL CHOLESTEROL EDUCATION PROGAM (NCEP) HAVE SET THE FOLLOWING GUIDELINES FOR LDL CHOLESTEROL IN ADULTS AGES 18 AND UP. DESIRABLE: <100 ABOVE DESIRABLE: 100 TO 129 BORDERLINE HIGH: 130 TO 159 HIGH: 160 TO 189 VERY HIGH: >189 VLDL CALCULATION 31 MG/DL 03/05/20 11:00 AM [facility] Comment:REFERENCE RANGE NOT ESTABLISHED CHOL/HDL RATIO 3.6 03/05/2022 11:00 AM [facility] Comment:REFERENCE RANGE NOT ESTABLISHED LDL/HDL 2.1 03/05/2022 11:00 AM [facility] Comment:REFERENCE RANGE NOT ESTABLISHED NON HDL CHOLESTEROL 148 MG/DL 03/05/2022 11:00 AM [facility] Comment:REFERENCE RANGE NOT ESTABLISHED 03/05/2022 10:2 6 AM SEARCH OPTIMIZATION ANALYST Lennox Ann MD LABORATORY Final Result [facility] [address] [place] [address], * (ABNORMAL) COMPREHENSIVE METABOLIC PANEL (03/05/2022 10:26 AM SEARCH OPTIMIZATION ANALYST) SODIUM S/P/B 139 136 - 145 MMOL/L 03/05/2022 11:00 AM [facility] POTASSIUM S/P/B 4.3 3.5 - 5.1 MMOL/L 03/05/2022 11:00 AM [facility] CHLORIDE S/P/B 104 98 - 107 MMOL/L 03/05/2022 11:00 AM [facility] CO2 31.9 21.0 - 32.0 MMOL/L 03/05/2022 11:00 AM [facility] GLUCOSE 112(H) 70 - 99 MG/DL 03/05/2022 11:00 AM [facility] Comment: FASTING GLUCOSE 100 TO 125 MG/DL IS CONSISTENT WITH IMPAIRED FASTING GLUCOSE. FASTING GLUCOSE >125 MG/DL IS CONSISTENT WITH DIABETES. RANDOM GLUCOSE >200 MG/DL WITH HYPERGLYCEMIC SYMPTOMS IS CONSISTENT WITH DIABETES. PER ADA GUIDELINES BUN 11 6 - 24 MG/DL 03/05/2022 11:00 AM [facility] CREATININE S/P/B 1.08 0.70 - 1.30 MG/DL 03/05/2022 11:00 AM [facility] CALCIUM S/P/B 9.8 8.4 - 10.5 MG/DL 03/05/2022 11:00 AM [facility] BILIRUBIN TOTAL S/P/B 1.5(H) 0.2 - 1.0 MG/DL 03/05/2022 11:00 AM [facility] Comment: THIS ASSAY IS NOT RECOMMENDED FOR PATIENTS UNDERGOING TREATMENT WITH ELTROMBOPAG DUE TO THE POTENTIAL FOR FALSELY ELEVATED RESULTS. ALKALINE PHOSPHATASE S/P/B 83 45 - 115 U/L 03/05/2022 11:00 AM [facility] AST 20 15 - 37 U/L 03/05/2022 11:00 AM [facility] ALT 51 16 - 63 U/L 03/05/2022 11:00 AM [facility] TOTAL PROTEIN S/P/B 7.8 6.4 - 8.2 G/DL 03/05/2022 11:00 AM [facility] ALBUMIN S/P/B 4.0 3.4 - 5.0 G/DL 03/05/2022 11:00 AM [facility] ANION GAP 3.1(L) 5.0 - 15.0 MMOL/L 03/05/2022 11:00 AM [facility] OSMOLALITY (CALC) 288 MOSM/KG 022 11:00 AM [facility] Comment:REFERENCE RANGE NOT ESTABLISHED GFR ESTIMATE 86(L) >89 ML/MIN/1. 73 M2 03/05/2022 11:00 AM [facility] GFR NOTES GFR REFERENCE S: 03/05/2022 11:00 AM [facility] Comment: THE ESTIMATED GFR IS CALCULATED [...] ml/min/1.73 m2 G5,KIDNEY FAILURE: <15 ml/min/1.73 m2 03/05/2022 10:2 6 AM SEARCH OPTIMIZATION ANALYST Lennox Ann MD LABORATORY Final Result [facility] [address] [place] [address], documented in this encounter Visit Diagnoses Diagnosis Annual physical exam- Primary Routine general medical examination at a health care facility Back pain Backache, unspecified documented in this encounter Care Teams Candy Decorator Relationship Specialty Start Date End Date Lennox Ann MD [address] [place] [address] PCP - General INTERNAL MEDICINE 01/16/19 documented as of this encounter
--- OUTSIDE RECORDS SUMMARY | 2024-03-20 09:14 | XMS_ITS | Encounter Summary ---
Author Organization [facility] Address [address] [place] [address]. [place] [address] [place] [address] Care Team Providers Care Environmental Assistant Name Role Phone Lennox Ann MD Primary Care Provider [phone] Encounter Details Date Type Department Care Team (Latest Contact Info) Description 03/12/2022 Travel Social History Tobacco Use Types Packs/Day Years Used Date Smoking Tobacco: Never Assessed Sex and Gender Information Value Date Recorded Sex Assigned at Not on file Legal Sex Male 5:51 PM REVENUE ACCOUNTANT Gender Identity Not on file Sexual Orientation Not on file COVID-19 Exposure Response Date Recorded In the last 10 days, have yo u been in contact with someone who was confirmed or suspected to have Coronavirus/COVID-19? No / Unsure 03/12/2022 1:20 PM REVENUE ACCOUNTANT documented as of this encounter Plan of Treatment Not on file documented as of this encounter Visit Diagnoses Not on filedocumented in this encounter Care Teams Environmental Assistant Relationship Specialty Start Date End Date Lennox Ann MD [address] [place] [address] PCP - General INTERNAL MEDICINE 01/16/19 documented as of this encounter
--- OUTSIDE RECORDS SUMMARY | 2024-03-20 09:14 | XMS_ITS | Encounter Summary ---
Author Organization [facility] Address [address] [place] [address]. [place] [address] [place] [address] Care Team Providers Care Tactical Air Defense Controller Name Role Phone Lennox Ann MD Primary Care Provider [phone] Reason for Referral * Imaging (Routine) - Closed Specialty Diagnoses / Procedures Referred By Meaganac t Referred To Contact RADIOLOGY Diagnoses Spinal stenosis, lumbar region, with neurogenic claudication Procedures MRI LUMB SPINE WWO Sandra Manriquez MD 3 [facility] [address] [place], [place] [address] Phone: tel: fax: Referral ID Status Reason Start Date Expiration Date Visits Re quested Visits Authorized [id number] Closed MRI 10/13/2022 10/14/2023 1 1 Reason for Visit * Imaging (Routine) - Closed Specialty Diagnoses / Procedures Referred By Contac t Referred To Contact RADIOLOGY Diagnoses Spinal stenosis, lumbar region, with neurogenic claudication Procedures MRI LUMB SPINE WWO Sandra Manriquez MD 3 [facility] [address] [place] [address] Phone: tel: fax: Referral ID Status Reason Start Date Expiration Date Visits Re quested Visits Authorized [id number] Closed MRI 10/13/2022 10/14/2023 1 1 Encounter Details Date Type Department Care Team (Latest Contact Info) Description 10/30/2022 6:45 AM CDT - 10/30/2022 11:59 PM CDT Hospital Encounter [facility] [address] [place] [address] Sandra Wang MD 3 [facility] [address] [place] [id number] Discharge Disposition: Home or Self Care (Routine Discharge) Social History Tobacco Use Types Packs/Day Years Used Date Smoking Tobacco: Never Assessed Sex and Gender Information Value Date Recorded Sex Assigned at Not on file Legal Sex Male 5:51 PM 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 Gender Identity Not on file Sexual Orientation Not on file documented as of this encounter Plan of Treatment Not on file documented as of this encounter Procedures Procedure Name Priority Date/Time Associated Diagnosis Comments MRI LUMB SPINE WWO CON Routine 10/30/2022 7:50 AM CDT Spinal stenosis, lumbar region, with neurogenic claudication documented in this encounter Results * MRI LUMB SPINE WWO CON (10/30/2022 7:50 AM CDT) Anatomical Region Laterality Modality Spine Magnetic Resonan ce 11/18/2022 1:36 PM CDT Impressions 11/18/2022 1:56 PM CDT IMPRESSION: 1) Old postoperative changes at L5/S1 consistent with laminectomy. Mild scar tissue at this level surrounding the left central S1 root. Mild to moderate facet disease at this same level associated with moderate narrowing of neural foramen worse on the left. 2. Degenerative changes in the remainder of the lumbar spine including the endplates of the mid lumbar vertebra with Schmorl's nodules and adjacent degenerative edema. The endplate degeneration and Schmorl's nodules are worse at L2-3 level. 3. L4-5: Degenerative changes with at least moderate diffuse disc protrusion and disc extrusion compromising the central canal of moderate to severe degree including lateral recesses and moderate to severe foraminal stenosis worse on the left. These findings appear slightly worse than before. 4. Mild to moderate central canal stenosis at L2-3 and L3-4 levels due to degenerative changes and hypertrophy of the posterior elements. Ordered By: SANDRA WANG Interpreted By: Efrain Beckman MD, 11/18/2022 1:36 PM Narrative 11/18/2022 1:56 PM CDT Examination: MRI LUMB SPINE GUALBERTO BELTRAN Exam time: 10/30/2022 7:34 AM Clinical history: Spinal stenosis. Neurogenic claudication. History of back surgery many years ago. Comparison: Previous studies for comparison March 2021. Technique: MR imaging is performed without and with contrast and patient received 15 mL of contrast. Findings: In the lower lumbar spine and there are postoperative findings at L5/S1 level consistent with laminectomy. In the lumbar spine at the osseous structures show chronic degenerative changes with endplate irregularities and Schmorl's nodules especially along the segment L2-L5 with prominent Schmorl's nodules at L2-3 level and also at L3-4 level. In the lower thoracic levels mild degenerative changes with no significant focal disc lesions or mass effect on the spinal cord. L1-L2: Degenerative changes including mild hypertrophy of the facets. Mild disc bulge. There is borderline size of the neural foramen and the central canal. L2-3: Degenerative changes are noted. Vhmi-ry-knduasaw facet disease. There is diffuse disc bulge and posterolateral disc bulges at this level, chronic. Mild narrowing of the central canal and yidl-ys-vnhxiydk foraminal stenosis. L3-4: Degenerative changes with diffuse bulge and moderate hypertrophy of the posterior elements associated with mild to moderate stenosis of the central canal and mild narrowing of the neural foramen. L4-5: More pronounced degenerative changes with at least moderate facet disease and associated at least moderate diffuse central disc protrusion with disc extrusion. This is a chronic finding. It appears slightly progressed associated with stenosis of the central canal of moderate to severe degree along with lateral recess stenosis and moderate to severe foraminal stenosis at this level worse on the left. L5/S1: Postoperative findings as described and chronic degenerative changes with moderate facet disease. There is moderate narrowing of the neural foramen. Foraminal narrowing worse on the left. No significant central canal stenosis. On the postcontrast images there is no abnormal enhancement in the central canal. The distal spinal cord is unremarkable. Visualized paraspinal soft tissues show no acute findings. Procedure Note Efrain Beckman MD - 11/18/2022 Examination: MRI LUMB SPINE GUALBERTO BELTRAN Exam time: 10/30/2022 7:34 AM Clinical history: Spinal stenosis. Neurogenic claudication. History ofback surgery many years ago. Comparison: Previous studies for comparison March 2021. Technique: MR imaging is performed without and with contrast and patientreceived 15 mL of contrast. Findings: In the lower lumbar spine and there are postoperative findingsat L5/S1 level consistent with laminectomy. In the lumbar spine at theosseous structures show chronic degenerative changes with endplateirregularities and Schmorl's nodules especially along the segment L2-L5with prominent Schmorl's nodules at L2-3 level and also at L3-4 level. In the lower thoracic levels mild degenerative changes with no significantfocal disc lesions or mass effect on the spinal cord. L1-L2: Degenerative changes including mild hypertrophy of the facets. Milddisc bulge. There is borderline size of the neural foramen and the centralcanal. L2-3: Degenerative changes are noted. Hexf-qs-hmsotkgb facet disease.There is diffuse disc bulge and posterolateral disc bulges at this level,chronic. Mild narrowing of the central canal and pght-kj-xytyywsppwtiatwyl stenosis. L3-4: Degenerative changes with diffuse bulge and moderate hypertrophy ofthe posterior elements associated with mild to moderate stenosis of thecentral canal and mild narrowing of the neural foramen. L4-5: More pronounced degenerative changes with at least moderate facetdisease and associated at least moderate diffuse central disc protrusionwith disc extrusion. This is a chronic finding. It appears slightlyprogressed associated with stenosis of the central canal of moderate tosevere degree along with lateral recess stenosis and moderate to severeforaminal stenosis at this level worse on the left. L5/S1: Postoperative findings as described and chronic degenerativechanges with moderate facet disease. There is moderate narrowing of theneural foramen. Foraminal narrowing worse on the left. No significantcentral canal stenosis. On the postcontrast images there is no abnormal enhancement in the centralcanal. The distal spinal cord is unremarkable. Visualized paraspinal softtissues show no acute findings. IMPRESSION: 1) Old postoperative changes at L5/S1 consistent with laminectomy. Mildscar tissue at this level surrounding the left central S1 root. Mild tomoderate facet disease at this same level associated with moderatenarrowing of neural foramen worse on the left. 2. Degenerative changes in the remainder of the lumbar spine including theendplates of the mid lumbar vertebra with Schmorl's nodules and adjacentdegenerative edema. The endplate degeneration and Schmorl's nodules areworse at L2-3 level. 3. L4-5: Degenerative changes with at least moderate diffuse discprotrusion and disc extrusion compromising the central canal of moderateto severe degree including lateral recesses and moderate to severeforaminal stenosis worse on the left. These findings appear slightly worsethan before. 4. Mild to moderate central canal stenosis at L2-3 and L3-4 levels due todegenerative changes and hypertrophy of the posterior elements. Ordered By: SANDRA WANG Interpreted By: Efrain Beckman MD, 11/18/2022 1:36 PM Sandra Wang MD MRI Final Result documented in this encounter Visit Diagnoses Diagnosis Spinal stenosis, lumbar region, with neurogenic claudication documented in this encounter Administered Medications Inactive Administered Medications - up to 3 most recent administrations Medication Order MAR Action Action Date Dose Rate Site gadobenate dimeglumine (MULTIHANCE) 529 MG/ML injection 15 mL 15 mL, Intravenous, IMG once as needed, Contrast, 1 dose, Starting on Wed10/30/22 at 0735, Until Wed10/30/22 at 0733 Given 10/30/2022 7:33 AM CDT 15 mLs documented in this encounter Care Teams Tactical Air Defense Controller Relationship Specialty Start Date End Date Lennox Ann MD [address] [place] [address] PCP - General INTERNAL MEDICINE 01/16/19 documented as of this encounter
--- OUTSIDE RECORDS SUMMARY | 2024-03-20 09:14 | XMS_ITS | Encounter Summary ---
Author Organization [facility] Address [address] [place] [address]. [place] [address] [place] [address] Care Team Providers Care Hydrodynamics Professor Name Role Phone Lennox Ann MD Primary Care Provider [phone] Reason for Referral * Imaging (Routine) - Closed Specialty Diagnoses / Procedures Referred By Contac t Referred To Contact RADIOLOGY Diagnoses Spondylosis of lumbar region without myelopathy or radiculopathy Procedures MRI LUMB SPINE WO CON Young White APRN Referral ID Status Reason Start Date Expiration Date Visits Re quested Visits Authorized [id number] Closed 2022 2023 1 1 DIE PRESS FEEDER Reason for Visit * Imaging (Routine) - Closed Specialty Diagnoses / Procedures Referred By Contac t Referred To Contact RADIOLOGY Diagnoses Spondylosis of lumbar region without myelopathy or radiculopathy Procedures MRI LUMB SPINE WO CON Young White APRN Referral ID Status Reason Start Date Expiration Date Visits Re quested Visits Authorized [id number] Closed 2022 2023 1 1 Encounter Details Date Type Department Care Team (Latest Contact Info) Description 05/12/2022 8:55 AM HOT DIE PRESS FEEDER - 05/12/2022 11:59 PM HOT DIE PRESS FEEDER Hospital Encounter [facility] [address] [facility] [place] [address] Young White APRN Discharge Disposition: Home or Self Care (Routine Discharge) Social History Tobacco Use Types Packs/Day Years Used Date Smoking Tobacco: Never Assessed Sex and Gender Information Value Date Recorded Sex Assigned at Not on file Legal Sex Male 5:51 PM HOT DIE PRESS FEEDER Gender Identity Not on file Sexual Orientation Not on file COVID-19 Exposure Response Date Recorded In the last 10 days, have yo u been in contact with someone who was confirmed or suspected to have Coronavirus/COVID-19? No / Unsure 05/12/2022 8:54 AM HOT DIE PRESS FEEDER documented as of this encounter Plan of Treatment Not on file documented as of this encounter Procedures Procedure Name Priority Date/Time Associated Diagnosis Comments MRI LUMB SPINE WO CON Routine 05/12/2022 9:50 AM HOT DIE PRESS FEEDER Spondylosis of lumbar region without myelopathy or radiculopathy documented in this encounter Results * MRI LUMB SPINE WO CON (05/12/2022 9:50 AM HOT DIE PRESS FEEDER) Anatomical Region Laterality Modality Spine Magnetic Resonan ce 05/12/2022 4:22 PM HOT DIE PRESS FEEDER Impressions 05/12/2022 4:34 PM HOT DIE PRESS FEEDER IMPRESSION: 1. At L4-5, there is severe left and moderate to severe right neural foraminal narrowing, moderate spinal canal narrowing, and narrowing of the bilateral lateral recesses due to anterolisthesis with disc uncovering, superimposed central disc protrusion, epidural lipomatosis, and facet hypertrophy. The degree of spinal canal and lateral recess narrowing has progressed since the prior examination while the degree of neural foraminal narrowing appears similar to the prior examination. 2. Spinal canal and neural foraminal narrowing at the other lumbar levels as detailed above as well as narrowing of the left lateral recess at L5-S1; overall, the remaining lumbar levels appear similar to the prior examination. 3. Surgical changes of left hemilaminectomy at L5-S1. Ordered By: YOUNG WHITE Interpreted By: Vishal Bush DO, 05/12/2022 4:22 PM Narrative 05/12/2022 4:34 PM HOT DIE PRESS FEEDER Examination: MRI LUMB SPINE WO CON Exam time: 05/12/2022 9:50 AM Clinical history: Spondylosis of the lumbar region without myelopathy or radiculopathy. Low back pain that radiates into both legs. History of lumbar surgery 7 years ago. 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 Comparison: MRI of the lumbar spine 03/26/2021. Technique: Multiplanar, multisequence MRI of the lumbar spine was performed without intravenous contrast. Findings: There are 5 nonrib-bearing lumbar type vertebral bodies, designated as L1-L5 for the purposes of this examination. Using this numbering system, the conus medullaris terminates at the level of the L1 vertebral body. No evidence is seen to suggest expansion or signal abnormality of the conus medullaris or cauda equina. Trace grade 1 retrolisthesis of L1 on L2 and L2 on L3, that appears similar to the prior examination. There is also trace grade 1 anterolisthesis of L4 on L5 that appears similar to the prior examination. Facet alignments are maintained. Multilevel degenerative disc disease affects the lumbar spine with relatively minimal degenerative disc disease affecting L5-S1. There is Schmorl's node formation along the L2 inferior endplate, L3 superior and inferior endplates, L4 superior endplate, and L5 inferior endplate with the Schmorl's node formation along the L3 superior end plate appearing new since the prior examination. There is a vertebral body hemangioma at L3. No suspicious marrow signal abnormality is seen in the lumbar spine. Lumbar vertebral body heights are maintained. The included paraspinal soft tissues demonstrate no gross signal abnormality. The incompletely visualized left sacroiliac joint demonstrates osteoarthritis. Level by level evaluation is as follows: T12-L1: Evaluated on the sagittal views only, there is no significant spinal canal or neural foraminal narrowing. L1-2: Trace retrolisthesis, facet hypertrophy, and minimal disc bulge without significant spinal canal or neural foraminal narrowing. L2-3: Trace retrolisthesis, diffuse disc bulge, and facet hypertrophy with mild to moderate right neural foraminal narrowing and minimal left neural foraminal narrowing that appears similar to the prior examination. L3-4: Diffuse disc bulge, facet hypertrophy, and epidural lipomatosis resulting in moderate right and nakk-dn-ytqpfgfu left neural foraminal narrowing and mild spinal canal narrowing. This appears similar to the prior examination. L4-5: Anterolisthesis with disc uncovering, superimposed central disc protrusion, epidural lipomatosis, and facet hypertrophy results in severe left and moderate to severe right neural foraminal narrowing, moderate spinal canal narrowing, and narrowing of the lateral recesses bilaterally. The degree of spinal canal and lateral recess narrowing has progressed since the prior examination while the degree of neural foraminal narrowing appears similar to the prior examination. L5-S1: Surgical changes of left hemilaminectomy. Disc bulge and facet hypertrophy moderate to severe left neural foraminal narrowing, narrowing of the left lateral recess, and minimal right neural foraminal narrowing. This appears similar to the prior examination. Procedure Note Rachelle Vishal Mei, DO - 05/12/2022 Examination: MRI LUMB SPINE WO CON Exam time: 05/12/2022 9:50 AM Clinical history: Spondylosis of the lumbar region without myelopathy orradiculopathy. Low back pain that radiates into both legs. History oflumbar surgery 7 years ago. 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 Comparison: MRI of the lumbar spine 03/26/2021. Technique: Multiplanar, multisequence MRI of the lumbar spine wasperformed without intravenous contrast. Findings: There are 5 nonrib-bearing lumbar type vertebral bodies, designated asL1-L5 for the purposes of this examination. Using this numbering system,the conus medullaris terminates at the level of the L1 vertebral body. Noevidence is seen to suggest expansion or signal abnormality of the conusmedullaris or cauda equina. Trace grade 1 retrolisthesis of L1 on L2 andL2 on L3, that appears similar to the prior examination. There is alsotrace grade 1 anterolisthesis of L4 on L5 that appears similar to theprior examination. Facet alignments are maintained. Multileveldegenerative disc disease affects the lumbar spine with relatively minimaldegenerative disc disease affecting L5-S1. There is Schmorl's nodeformation along the L2 inferior endplate, L3 superior and inferiorendplates, L4 superior endplate, and L5 inferior endplate with theSchmorl's node formation along the L3 superior end plate appearing newsince the prior examination. There is a vertebral body hemangioma at L3.No suspicious marrow signal abnormality is seen in the lumbar spine.Lumbar vertebral body heights are maintained. The included paraspinal softtissues demonstrate no gross signal abnormality. The incompletelyvisualized left sacroiliac joint demonstrates osteoarthritis. Level bylevel evaluation is as follows: T12-L1: Evaluated on the sagittal views only, there is no significantspinal canal or neural foraminal narrowing. L1-2: Trace retrolisthesis, facet hypertrophy, and minimal disc bulgewithout significant spinal canal or neural foraminal narrowing. L2-3: Trace retrolisthesis, diffuse disc bulge, and facet hypertrophy withmild to moderate right neural foraminal narrowing and minimal left neuralforaminal narrowing that appears similar to the prior examination. L3-4: Diffuse disc bulge, facet hypertrophy, and epidural lipomatosisresulting in moderate right and gnyf-vb-rdunpugj left neural foraminalnarrowing and mild spinal canal narrowing. This appears similar to theprior examination. L4-5: Anterolisthesis with disc uncovering, superimposed central discprotrusion, epidural lipomatosis, and facet hypertrophy results in severeleft and moderate to severe right neural foraminal narrowing, moderatespinal canal narrowing, and narrowing of the lateral recesses bilaterally.The degree of spinal canal and lateral recess narrowing has progressedsince the prior examination while the degree of neural foraminal narrowingappears similar to the prior examination. L5-S1: Surgical changes of left hemilaminectomy. Disc bulge and facethypertrophy moderate to severe left neural foraminal narrowing, narrowingof the left lateral recess, and minimal right neural foraminal narrowing.This appears similar to the prior examination. IMPRESSION: 1. At L4-5, there is severe left and moderate to severe right neuralforaminal narrowing, moderate spinal canal narrowing, and narrowing of thebilateral lateral recesses due to anterolisthesis with disc uncovering,superimposed central disc protrusion, epidural lipomatosis, and facethypertrophy. The degree of spinal canal and lateral recess narrowing hasprogressed since the prior examination while the degree of neuralforaminal narrowing appears similar to the prior examination. 2. Spinal canal and neural foraminal narrowing at the other lumbar levelsas detailed above as well as narrowing of the left lateral recess atL5-S1; overall, the remaining lumbar levels appear similar to the priorexamination. 3. Surgical changes of left hemilaminectomy at L5-S1. Ordered By: YOUNG WHITE Interpreted By: Vishal Bush DO, 05/12/2022 4:22 PM Young White SECURITY DIRECTOR MRI Final Result documented in this encounter Visit Diagnoses Diagnosis Spondylosis of lumbar region without myelopathy or radiculopathy Lumbosacral spondylosis without myelopathy documented in this encounter Care Teams Hydrodynamics Professor Relationship Specialty Start Date End Date Lennox Ann MD [address] [place] [id number] PCP - General INTERNAL MEDICINE 01/16/19 documented as of this encounter
--- OUTSIDE RECORDS SUMMARY | 2024-03-20 09:14 | XMS_ITS | Encounter Summary ---
Author Organization [facility] Address [address] [place] [address]. 

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
--- OUTSIDE RECORDS SUMMARY | 2024-03-20 09:15 | XMS_ITS | Encounter Summary ---
Author Organization [facility] Address [address] [place] [address]. 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 No / Unsure 03/26/2021 6:44 AM PIPE CONNECTOR documented as of this encounter Plan of Treatment Not on file documented as of this encounter Visit Diagnoses Not on filedocumented in this encounter Care Teams Nuclear Equipment Research Engineer Relationship Specialty Start Date End Date Lennox Ann MD [address] [place] [address] PCP - General INTERNAL MEDICINE 01/16/19 documented as of this encounter
--- OUTSIDE RECORDS SUMMARY | 2024-03-20 09:15 | XMS_ITS | Encounter Summary ---
Author Organization [facility] Address [address] [place] [address]. [place] [address] [place] [address] Care Team Providers Care Police Officer Crime Prevention Name Role Phone Unavailable Primary Care Provider Unavailabl e Encounter Details Date Type Department Care Team (Late st Contact Info) Description 03/10/[address] 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
--- OUTSIDE RECORDS SUMMARY | 2024-03-20 09:15 | XMS_ITS | Encounter Summary ---
Author Organization [facility] Address [address] [place] [address]. [place] [address] [place] [address] Care Team Providers Care Distance Learning Technician Name Role Phone Lennox Ann MD Primary Care Provider Encounter Details Date Type Department Care Team (Late st Contact Info) Description 08/20/2020 Orders Only [facility] [address] 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 No / Unsure 08/20/2020 8:18 AM CDT documented as of this encounter Plan of Treatment Not on file documented as of this encounter Results * (ABNORMAL) URINALYSIS WI REFLEX TO CULTURE (08/20/2020 8:35 AM CDT) COLOR (U) DARK YELLOW 08/20/2020 10:[address] [facility] TRANSPARENCY SLIGHTLY CLOUDY 08/20/2020 10:[address] [facility] SPECIFIC GRAVITY (U) 1.030(H) 1.000 - 1.025 08/20/2020 10:[address] [facility] Comment:EQUAL TO OR GREATER THAN U PH 5.5 5.0 - 8.0 08/20/2020 10:[address] [facility] LEUKOCYTES (U) NEGATIVE NEGATIVE 08/20/2020 10:[address] [facility] NITRITES NEGATIVE NEGATIVE 08/20/2020 10:[address] [facility] PROTEIN (U) NEGATIVE NEGATIVE 08/20/2020 10:[address] [facility] URINE GLUCOSE NEGATIVE NEGATIVE 08/20/2020 10:[address] [facility] KETONES MG/DL (U) TRACE(A) NEGATIVE 08/20/2020 10:[address] [facility] UROBILINOGEN 0.2 <1.0 EU/DL 08/20/2020 10:[address] [facility] BILIRUBIN (U) NEGATIVE NEGATIVE 08/20/2020 10:[address] [facility] BLOOD (U) NEGATIVE NEGATIVE 08/20/2020 10:[address] [facility] WBC/HPF RARE(A) 0 - 5 /HPF 08/20/2020 10:[address] [facility] RBC/HPF RARE(A) 0 - 5 /HPF 08/20/2020 10:[address] [facility] EPI/HPF RARE /LPF 08/20/2020 10:[address] [facility] BACTERIA (U) TRACE /HPF 08/20/2020 10:[address] [facility] MUCUS PRESENT 08/20/2020 10:[address] [facility] CULTURE & SENSITIVITY INDICATED? NOT INDICATED 08/20/2020 10:[address] [facility] URINE SPECIMEN OBTAINED BY CLEAN CATCH PROCEDURE / Unknown 08/20/2020 8:35 AM CDT Lennox Ann MD URINE ORDERABLES Final Result [facility] [address] [place] [address], * HEMOGLOBIN, GLYCOSYLATED (08/20/2020 8:33 AM CDT) HGB A1C 5.2 <5.7 % 08/20/2020 2:[address] [facility] Comment: 5.7 TO 6.4% INCREASED RISK OF DIABETES > OR = 6.5% CONSISTENT WITH DIABETES PER ADA GUIDELINES ESTIMATED AVG GLUCOSE 103 70 - 140 MG/DL 08/20/2020 2:[address] [facility] 08/20/2020 8:33 AM CDT us Lennox Ann MD LABORATORY Final Result Performing Organization Address City/[facility]/ZIP Co de Phone Number [facility] [address] [place] [id number], * THYROID STIM HORMONE, TSH (08/20/2020 8:33 AM CDT) TSH 1.382 0.358 - 3.740 uIU/ML 08/20/2020 9:[address] [facility] 08/20/2020 8:33 AM CDT us Lennox Ann MD LABORATORY Final Result [facility] [address] [place] [address], * (ABNORMAL) CBC W/DIFF AUTOMATED (08/20/2020 8:33 AM CDT) WBC 6.5 4.5 - 10.8 x10'3/uL 08/20/2020 8:[address] [facility] RBC 4.55 4.50 - 6.10 x10'6/uL 08/20/2020 8:[address] [facility] HGB 15.0 13.0 - 18.0 G/DL 08/20/2020 8:[address] [facility] HCT 44.2 37.0 - 52.0 % 08/20/2020 8:[address] [facility] MCV 97.1 78.0 - 100.0 FL 08/20/2020 8:[address] [facility] MCH 33.0(H) 27.0 - 31.0 PG 08/20/2020 8:[address] [facility] MCHC 33.9 33.0 - 36.0 G/DL 08/20/2020 8:[address] [facility] RDW 12.2 11.5 - 14.5 % 08/20/2020 8:[address] [facility] PLT 216 150 - 350 x10'3/uL 08/20/2020 8:[address] [facility] MPV 8.5 7.4 - 10.4 FL 08/20/2020 8:[address] [facility] DIFFERENTIAL COMMENT NORMAL REFERENCE RANGE NOT ESTABLISHED FOR THE PROPORTIONAL LEUKOCYTE DIFFERENTIAL. 08/20/2020 8:[address] [facility] SEG NEUTROPHILS 48.9 % 8:[address] [facility] LYMPHOCYTES 34.0 % 08/20/2020 8:[address] [facility] MONOCYTES 11.1 % 08/20/2020 8:[address] [facility] EOSINOPHILS 4.9 % 08/20/2020 8:[address] [facility] BASOPHILS 0.9 % 08/20/2020 8:[address] [facility] IMMATURE GRANS % 0.2 % 08/21/19 8:[address] [facility] NRBC 0.0 % 08/20/2020 8:[address] [facility] ABS. NEUTROPHILS 3.18 1.60 - 8.30 x10'3/uL 08/20/2020 8:[address] [facility] ABS. LYMPHOCYTES 2.21 0.80 - 4.70 x10'3/uL 08/20/2020 8:[address] [facility] ABS. MONOCYTES 0.72 0.00 - 1.50 x10'3/uL 08/20/2020 8:[address] [facility] ABS. EOSINOPHILS 0.32 0.00 - 0.40 x10'3/uL 08/20/2020 8:[address] [facility] ABS. BASOPHILS 0.06 0.00 - 0.20 x10'3/uL 08/20/2020 8:[address] [facility] ABS. IMMATURE GRANULOCYTES 0.01 0.00 - 0.03 x10'3/uL 08/20/2020 8:[address] [facility] ABS. NUCLEATED RBC'S 0.00 0.00 x10'3/uL 08/20/2020 8:[address] [facility] 08/20/2020 8:33 AM CDT Lennox Ann MD LABORATORY Final Result [facility] [address] [place] [address], * (ABNORMAL) LIPID PANEL (08/20/2020 8:33 AM CDT) CHOLESTEROL 166 <200 MG/DL 08/20/2020 9:[address] [facility] Comment: THE NATIONAL LIPID ASSOCIATION AND THE NATIONAL CHOLESTEROL EDUCATION PROGRAM (NCEP) HAVE SET THE FOLLOWING GUIDELINES FOR TOTAL CHOLESTEROL IN ADULTS AGES 18 AND UP. DESIRABLE: <200 BORDERLINE HIGH: 200-239 HIGH: > OR = 240 TRIGLYCERIDES 79 <150 MG/DL 08/20/2020 9:[address] [facility] Comment: THE NATIONAL LIPID ASSOCIATION AND THE NATIONAL CHOLESTEROL EDUCATION PROGAM (NCEP) HAVE SET THE FOLLOWING GUIDELINES FOR TRIGLYCERIDES IN ADULTS AGES 18 AND UP. NORMAL: <150 BORDERLINE HIGH: 150 TO 199 HIGH: 200 TO 499 VERY HIGH: >499 HDL 50 >39 MG/DL 08/20/2020 9:[address] [facility] Comment: THE NATIONAL LIPID ASSOCIATION AND THE NATIONAL CHOLESTEROL EDUCATION PROGAM (NCEP) HAVE SET THE FOLLOWING GUIDELINES FOR HDL CHOLESTEROL IN ADULTS AGES 18 AND UP. MALES: >39 FEMALES: >49 LDL (CALCULATED) 100(H) <100 MG/DL 08/21/19 9:[address] [facility] Comment: THE NATIONAL LIPID ASSOCIATION AND THE NATIONAL CHOLESTEROL EDUCATION PROGAM (NCEP) HAVE SET THE FOLLOWING GUIDELINES FOR LDL CHOLESTEROL IN ADULTS AGES 18 AND UP. DESIRABLE: <100 ABOVE DESIRABLE: 100 TO 129 BORDERLINE HIGH: 130 TO 159 HIGH: 160 TO 189 VERY HIGH: >189 VLDL CALCULATION 16 MG/DL 08/21/19 9:[address] [facility] Comment:REFERENCE RANGE NOT ESTABLISHED CHOL/HDL RATIO 3.3 08/20/2020 9:[address] [facility] Comment:REFERENCE RANGE NOT ESTABLISHED LDL/HDL 2.0 08/20/2020 9:[address] [facility] Comment:REFERENCE RANGE NOT ESTABLISHED NON HDL CHOLESTEROL 116 MG/DL 08/20/2020 9:[address] [facility] Comment:REFERENCE RANGE NOT ESTABLISHED 08/20/2020 8:33 AM CDT Lennox Ann MD LABORATORY Final Result [facility] [address] [place] [address], * (ABNORMAL) COMPREHENSIVE METABOLIC PANEL (08/20/2020 8:33 AM CDT) SODIUM S/P/B 139 136 - 145 MMOL/L 08/20/2020 9:[address] [facility] POTASSIUM S/P/B 4.2 3.5 - 5.1 MMOL/L 08/20/2020 9:[address] [facility] CHLORIDE S/P/B 104 98 - 107 MMOL/L 08/20/2020 9:[address] [facility] CO2 25.9 21.0 - 32.0 MMOL/L 08/20/2020 9:05 AM [facility] GLUCOSE 111(H) 70 - 99 MG/DL 08/20/2020 9:05 AM [facility] Comment: FASTING GLUCOSE 100 TO 125 MG/DL IS CONSISTENT WITH IMPAIRED FASTING GLUCOSE. FASTING GLUCOSE >125 MG/DL IS CONSISTENT WITH DIABETES. RANDOM GLUCOSE >200 MG/DL WITH HYPERGLYCEMIC SYMPTOMS IS CONSISTENT WITH DIABETES. PER ADA GUIDELINES BUN 10 6 - 24 MG/DL 08/20/2020 9:05 AM [facility] CREATININE S/P/B 0.99 0.70 - 1.30 MG/DL 08/20/2020 9:05 AM [facility] CALCIUM S/P/B 8.8 8.4 - 10.5 MG/DL 08/20/2020 9:05 AM [facility] BILIRUBIN TOTAL S/P/B 0.9 0.2 - 1.0 MG/DL 08/20/2020 9:05 AM [facility] Comment: THIS ASSAY IS NOT RECOMMENDED FOR PATIENTS UNDERGOING TREATMENT WITH ELTROMBOPAG DUE TO THE POTENTIAL FOR FALSELY ELEVATED RESULTS. ALKALINE PHOSPHATASE S/P/B 70 45 - 115 U/L 08/20/2020 9:05 AM [facility] AST 26 15 - 37 U/L 08/20/2020 9:05 AM [facility] ALT 51 16 - 63 U/L 08/20/2020 9:05 AM [facility] TOTAL PROTEIN S/P/B 7.3 6.4 - 8.2 G/DL 08/20/2020 9:05 AM [facility] ALBUMIN S/P/B 3.8 3.4 - 5.0 G/DL 08/20/2020 9:05 AM [facility] ANION GAP 9.1 5.0 - 15.0 MMOL/L 08/20/2020 9:05 AM [facility] OSMOLALITY (CALC) 288 MOSM/KG 021 9:05 AM [facility] Comment:REFERENCE RANGE NOT ESTABLISHED EGFR NON-AFR. AMER. >90 >89 ML/MIN/1. 73 M2 08/20/2020 9:[address] [facility] EGFR AFR. AMER. >90 >89 ML/MIN/1. 73 M2 08/20/2020 9:[address] [facility] GFR NOTES GFR REFERENCE S: 08/20/2020 9:[address] [facility] Comment: THE ESTIMATED GFR IS CALCULATED USING THE 2009 CKD-EPI EQUATION. THE FOLLOWING CATEGORIES FOR GRADING RENAL FUNCTION ARE RECOMMENDED BY THE INTERNATIONAL SOCIETY OF NEPHROLOGY (KDIGO 2012 CLINICAL PRACTICE GUIDELINE). G1,NORMAL OR HIGH: >89 ml/min/1.73 m2 G2,MILDLY DECREASED: 60-89 ml/min/1.73 m2 G3A,MILDLY TO MODERATELY DECREASED: 45-59 ml/min/1.73 m2 G3B,MODERATELY TO SEVERELY DECREASED: 30-44 ml/min/1.73 m2 G4,SEVERELY DECREASED: 15-29 ml/min/1.73 m2 G5,KIDNEY FAILURE: <15 ml/min/1.73 m2 08/20/2020 8:33 AM CDT Lennox Ann MD LABORATORY Final Result [facility] [address] [place] [address], documented in this encounter Visit Diagnoses Diagnosis Annual physical exam- Primary Routine general medical examination at a health care facility Impaired fasting blood sugar Impaired fasting glucose documented in this encounter Care Teams Distance Learning Technician Relationship Specialty Start Date End Date Lennox Ann MD [address] [place] [phone] PCP - General INTERNAL MEDICINE 01/16/19 documented as of this encounter
--- OUTSIDE RECORDS SUMMARY | 2024-03-20 09:15 | XMS_ITS | Encounter Summary ---
Author Organization [facility] Address [address] [place] [address]. 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 No / Unsure 03/05/2022 10:14 AM MANAGER TELECOM documented as of this encounter Plan of Treatment Not on file documented as of this encounter Visit Diagnoses Not on filedocumented in this encounter Care Teams Residence Counselor Relationship Specialty Start Date End Date Lennox Ann MD [address] [place] [address] PCP - General INTERNAL MEDICINE 01/16/19 documented as of this encounter
--- OUTSIDE RECORDS SUMMARY | 2024-03-20 09:15 | XMS_ITS | Encounter Summary ---
Author Organization [facility] Address [address] [place] [address]. [place] [address] [place] [address] Care Team Providers Care Telecommunications Facility Examiner Name Role Phone Unavailable Primary Care Provider Unavailabl e Encounter Details Date Type Department Care Team (Late st Contact Info) Description 03/05/2017 Abstract [facility] [facility] [place] [address] Sae Noriega MD [address] [facility] [address] [place] [address] Social History Tobacco Use Types Packs/Day Years Used Date Smoking Tobacco: Never Assessed Sex and Gender Information Value Date Recorded Sex Assigned at Not on file 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
--- OUTSIDE RECORDS SUMMARY | 2024-03-20 09:15 | XMS_ITS | Encounter Summary ---
Author Organization [facility] Address [address] [place] [address]. 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
--- OUTSIDE RECORDS SUMMARY | 2024-03-20 09:15 | XMS_ITS | Encounter Summary ---
Author Organization [facility] Address [address] [place] [address]. [place] [address] [place] [address] Care Team Providers Care Lens Generator Name Role Phone Unavailable Primary Care Provider Unavailabl e Encounter Details Date Type Department Care Team (Late st Contact Info) Description 05/30/2018 [facility] [address] [facility] [place] [address] Lennox Ann MD [address] [place] [address] Social History Tobacco Use Types Packs/Day Years Used Date Smoking Tobacco: Never Assessed Sex and Gender Information Value Date Recorded Sex Assigned at Not on file Legal Sex Male 5:51 PM [employer] Gender Identity Not on file Sexual Orientation Not on file documented as of this encounter Plan of Treatment Not on file documented as of this encounter Procedures Procedure Name Priority Date/Time Associated Diagnosis Comments URINALYSIS WI REFLEX TO CULTURE Routine 05/30/2018 9:33 AM CDT COMPREHENSIVE METABOLIC PANEL Routine 05/30/2018 9:31 AM CDT LIPID PANEL Routine 05/30/2018 9:31 AM CDT CBC W/DIFF AUTOMATED Routine 05/30/2018 9:31 AM CDT THYROXINE, FREE (FT4) Routine 05/30/2018 9:31 AM CDT THYROID STIM HORMONE TSH Routine 05/30/2018 9:31 AM CDT documented in this encounter Results * (ABNORMAL) URINALYSIS WI REFLEX TO CULTURE (05/30/2018 9:33 AM CDT) COLOR (U) YELLOW 05/30/2018 9:48 AM CDT [facility] TRANSPARENCY CLEAR 05/30/2018 9:48 AM CDT [facility] SPECIFIC GRAVITY (U) 1.020 1.000 - 1.025 05/30/2018 9:48 AM CDT [facility] U PH 5.5 5.0 - 8.0 05/30/2018 9:48 AM CDT [facility] LEUKOCYTES (U) NEGATIVE NEGATIVE 05/30/2018 9:48 AM CDT [facility] NITRITES NEGATIVE NEGATIVE 05/30/2018 9:48 AM CDT [facility] PROTEIN (U) NEGATIVE NEGATIVE 05/30/2018 9:48 AM CDT [facility] URINE GLUCOSE NEGATIVE NEGATIVE 05/30/2018 9:48 AM CDT [facility] KETONES MG/DL (U) NEGATIVE NEGATIVE 05/30/2018 9:48 AM CDT [facility] UROBILINOGEN 0.2 <1.0 EU/DL 05/30/2018 9:48 AM CDT [facility] BILIRUBIN (U) NEGATIVE NEGATIVE 05/30/2018 9:48 AM CDT [facility] BLOOD (U) TRACE(A) NEGATIVE 05/30/2018 9:48 AM CDT [facility] WBC/HPF 0-5 0 - 5 /HPF 05/30/2018 9:48 AM CDT [facility] RBC/HPF 0-5 0 - 5 /HPF 05/30/2018 9:48 AM CDT [facility] EPI/HPF OCCASIONAL /LPF 05/30/2018 9:48 AM CDT [facility] MUCUS PRESENT 05/30/2018 9:48 AM CDT [facility] CULTURE & SENSITIVITY INDICATED? NOT INDICATED 05/30/2018 9:48 AM CDT [facility] OTHER (type in comments) 05/30/2018 9:33 AM CDT 05/30/2018 9:34 AM CDT Comment:URINE SPECIMEN~URINE SPECIMEN us Generic Conversion Md MICHAEL URINE ORDERABLES Final Result Performing Organization Address [facility] Co de Phone Number [facility] [address] [place] [address], * THYROID STIM HORMONE, TSH (05/30/2018 9:31 AM CDT) TSH 2.597 0.358 - 3.740 uIU/ML 05/30/2018 10:12 AM CDT [facility] SERUM OR PLASMA SPECIMEN / Unknown 05/30/2018 9:31 AM CDT 05/30/2018 9:33 AM CDT us Generic Conversion Md MICHAEL LABORATORY Final R esult Performing Organization Address [facility] Co de Phone Number [facility] [address] [place] [address], [place] [phone] * THYROXINE, FREE (FT4) (05/30/2018 9:31 AM CDT) FREE T4 0.94 0.76 - 1.46 NG/DL 05/30/2018 10:12 AM CDT [facility] SERUM OR PLASMA SPECIMEN / Unknown 05/30/2018 9:31 AM CDT 05/30/2018 9:33 AM CDT us Generic Conversion Md MICHAEL LABORATORY Final R esult Performing Organization Address [facility] Co de Phone Number [facility] [address] [place] [address], * (ABNORMAL) LIPID PANEL (05/30/2018 9:31 AM CDT) CHOLESTEROL 181 <200 MG/DL 05/30/2018 10:12 AM CDT [facility] Comment: THE NATIONAL LIPID ASSOCIATION AND THE NATIONAL CHOLESTEROL EDUCATION PROGRAM (NCEP) HAVE SET THE FOLLOWING GUIDELINES FOR TOTAL CHOLESTEROL IN ADULTS AGES 18 AND UP.DESIRABLE: <200BORDERLINE HIGH: 200-239HIGH: > OR = 240 TRIGLYCERIDES 156(H) <150 MG/DL 05/30/2018 10:12 AM CDT [facility] Comment: THE NATIONAL LIPID ASSOCIATION AND THE NATIONAL CHOLESTEROL EDUCATION PROGAM (NCEP) HAVE SET THE FOLLOWING GUIDELINES FOR TRIGLYCERIDES IN ADULTS AGES 18 AND UP.NORMAL: <150BORDERLINE HIGH: 150 TO 199HIGH: 200 TO 499VERY HIGH: >499 HDL 44 >39 MG/DL 05/30/2018 10:12 AM CDT [facility] Comment: THE NATIONAL LIPID ASSOCIATION AND THE NATIONAL CHOLESTEROL EDUCATION PROGAM (NCEP) HAVE SET THE FOLLOWING GUIDELINES FOR HDL CHOLESTEROL IN ADULTS AGES 18 AND UP.MALES: >39FEMALES: >49 LDL (CALCULATED) 106(H) <100 MG/DL 05/31/19 19 10:12 AM CDT [facility] Comment: THE NATIONAL LIPID ASSOCIATION AND THE NATIONAL CHOLESTEROL EDUCATION PROGAM (NCEP) HAVE SET THE FOLLOWING GUIDELINES FOR LDL CHOLESTEROL IN ADULTS AGES 18 AND UP.DESIRABLE: <100ABOVE DESIRABLE: 100 TO 129BORDERLINE HIGH: 130 TO 159HIGH: 160 TO 189VERY HIGH: >189 VLDL CALCULATION 31 MG/DL 05/31/19 19 10:12 AM CDT [facility] Comment:REFERENCE RANGE NOT ESTABLISHED CHOL/HDL RATIO 4.1 05/30/2018 10:12 AM CDT [facility] Comment:REFERENCE RANGE NOT ESTABLISHED LDL/HDL 2.4 05/30/2018 10:12 AM CDT [facility] Comment:REFERENCE RANGE NOT ESTABLISHED NON HDL CHOLESTEROL 137 MG/DL 05/30/2018 10:12 AM CDT [facility] Comment:REFERENCE RANGE NOT ESTABLISHED PLASMA SPECIMEN / Unknown 05/30/2018 9:31 AM CDT 05/30/2018 9:33 AM CDT us Generic Conversion Md MICHAEL LABORATORY Final R esult [facility] [address] [place] [id number], * COMPREHENSIVE METABOLIC PANEL (05/30/2018 9:31 AM CDT) SODIUM S/P/B 142 136 - 145 MMOL/L 05/30/2018 10:12 AM CDT [facility] POTASSIUM S/P/B 4.7 3.5 - 5.1 MMOL/L 05/30/2018 10:12 AM CDT [facility] CHLORIDE S/P/B 104 98 - 107 MMOL/L 05/30/2018 10:12 AM CDT [facility] CO2 27.9 21.0 - 32.0 MMOL/L 05/30/2018 10:12 AM CDT [facility] GLUCOSE 116 70 - 140 MG/DL 05/30/2018 10:12 AM CDT [facility] BUN 13 6 - 24 MG/DL 05/30/2018 10:12 AM CDT [facility] CREATININE S/P/B 1.02 0.70 - 1.30 MG/DL 05/30/2018 10:12 AM CDT [facility] CALCIUM S/P/B 9.4 8.4 - 10.5 MG/DL 05/30/2018 10:12 AM CDT [facility] BILIRUBIN TOTAL S/P/B 0.5 0.2 - 1.0 MG/DL 05/30/2018 10:12 AM CDT [facility] ALKALINE PHOSPHATASE S/P/B 76 45 - 115 U/L 05/30/2018 10:12 AM CDT [facility] AST 16 15 - 37 U/L 05/30/2018 10:12 AM CDT [facility] ALT 28 16 - 63 U/L 05/30/2018 10:12 AM CDT [facility] TOTAL PROTEIN S/P/B 7.5 6.4 - 8.2 G/DL 05/30/2018 10:12 AM CDT [facility] ALBUMIN S/P/B 3.9 3.4 - 5.0 G/DL 05/30/2018 10:12 AM CDT [facility] ANION GAP 10.1 MMOL/L 05/30/2018 10:12 AM CDT [facility] Comment:REFERENCE RANGE NOT ESTABLISHED OSMOLALITY (CALC) 295 MOSM/KG 05/30/2018 10:12 AM CDT [facility] Comment:REFERENCE RANGE NOT ESTABLISHED EGFR NON-AFR. AMER. 90 >89 ML/MIN/1 .73 M2 05/30/2018 10:12 AM CDT [facility] EGFR AFR. AMER. >90 >89 ML/MIN/1 .73 M2 05/30/2018 10:12 AM CDT [facility] GFR NOTES THE ESTIMATED GFR IS CALCULATED USING THE 2009 CKD-EPI EQUATION. THE FOLLOWING CATEGORIES FOR GRADING RENAL FUNCTION ARE RECOMMENDED BY THE INTERNATIONAL SOCIETY OF NEPHROLOGY (KDIGO 2012 CLINICAL PRACTICE GUIDELINE). 05/30/2018 10:12 AM CDT [facility] Comment: G1,NORMAL OR HIGH: >89 ml/min/1.73 m2G2,MILDLY DECREASED: 60-89 ml/min/1.73 m2G3A,MILDLY TO MODERATELY DECREASED: 45-59 ml/min/1.73 m2G3B,MODERATELY TO SEVERELY DECREASED: 30-44 ml/min/1.73 m2G4,SEVERELY DECREASED: 15-29 ml/min/1.73 m2G5,KIDNEY FAILURE: <15 ml/min/1.73 m2 PLASMA SPECIMEN / Unknown 05/30/2018 9:31 AM CDT 05/30/2018 9:33 AM CDT us Generic Conversion Md MICHAEL LABORATORY Final R esult [facility] [address] [place] [address], * (ABNORMAL) CBC W/DIFF AUTOMATED (05/30/2018 9:31 AM CDT) WBC 10.0 4.5 - 10.8 x10'3/uL 05/30/2018 9:36 AM CDT [facility] RBC 5.05 4.50 - 6.10 x10'6/uL 05/30/2018 9:36 AM CDT [facility] HGB 16.6 13.0 - 18.0 G/DL 05/30/2018 9:36 AM CDT [facility] HCT 48.9 37.0 - 52.0 % 05/30/2018 9:36 AM CDT [facility] MCV 96.8 78.0 - 100.0 FL 05/30/2018 9:36 AM CDT [facility] MCH 32.9(H) 27.0 - 31.0 PG 05/30/2018 9:36 AM CDT [facility] MCHC 33.9 33.0 - 36.0 G/DL 05/30/2018 9:36 AM CDT [facility] RDW 11.9 11.5 - 14.5 % 05/30/2018 9:36 AM CDT [facility] PLT 239 150 - 350 x10'3/uL 05/30/2018 9:36 AM CDT [facility] MPV 8.5 7.4 - 10.4 FL 05/30/2018 9:36 AM CDT [facility] SEG NEUTROPHILS 58.6 % 9 9:36 AM CDT [facility] LYMPHOCYTES 27.6 % 05/30/2018 9:36 AM CDT [facility] MONOCYTES 8.6 % 05/30/2018 9:36 AM CDT [facility] EOSINOPHILS 4.2 % 05/30/2018 9:36 AM CDT [facility] BASOPHILS 0.8 % 05/30/2018 9:36 AM CDT [facility] IMMATURE GRANS % 0.2 % 05/31/19 19 9:36 AM CDT [facility] NRBC 0.0 % 05/30/2018 9:36 AM CDT [facility] ABS. NEUTROPHILS 5.86 1.60 - 8.30 x10'3/uL 05/30/2018 9:36 AM CDT [facility] ABS. LYMPHOCYTES 2.76 0.80 - 4.70 x10'3/uL 05/30/2018 9:36 AM CDT [facility] ABS. MONOCYTES 0.86 0.00 - 1.50 x10'3/uL 05/30/2018 9:36 AM CDT [facility] ABS. EOSINOPHILS 0.42(H) 0.00 - 0.40 x10'3/uL 05/30/2018 9:36 AM CDT [facility] ABS. BASOPHILS 0.08 0.00 - 0.20 x10'3/uL 05/30/2018 9:36 AM CDT [facility] ABS. IMMATURE GRANULOCYTES 0.02 0.00 - 0.03 x10'3/uL 05/30/2018 9:36 AM CDT [facility] ABS. NUCLEATED RBC'S 0.00 0.00 x10'3/uL 05/30/2018 9:36 AM CDT [facility] OTHER (type in comments) 05/30/2018 9:31 AM CDT 05/30/2018 9:33 AM CDT Comment:WHOLE BLOOD SAMPLE us Generic Conversion Md MICHAEL LABORATORY Final R esult [facility] [address] [place] [address], documented in this encounter Visit Diagnoses Diagnosis Encounter for general adult medical examination without abnormal findings Unspecified general medical examination documented in this encounter
--- OUTSIDE RECORDS SUMMARY | 2024-03-20 09:15 | XMS_ITS | Encounter Summary ---
Author Organization [facility] Address [address] [place] [address]. [place] [address] [place] [address] Care Team Providers Care Enameler Name Role Phone Lennox Ann MD Primary Care Provider [phone] Encounter Details Date Type Department Care Team (Late st Contact Info) Description 03/05/2022 10:15 AM OPERATIONS RESEARCH DIRECTOR - 03/05/2022 11:59 PM OPERATIONS RESEARCH DIRECTOR Hospital Encounter [facility] [address] [facility] [place] [address] Lennox Ann MD [address] [place] [address] Discharge Disposition: Home or Self Care (Routine Discharge) Social History Tobacco Use Types Packs/Day Years Used Date Smoking Tobacco: Never Assessed Sex and Gender Information Value Date Recorded Sex Assigned at Not on file Legal Sex Male 5:51 PM 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 No / Unsure 03/05/2022 10:14 AM OPERATIONS RESEARCH DIRECTOR documented as of this encounter Plan of Treatment Not on file documented as of this encounter Procedures Procedure Name Priority Date/Time Associated Diagnosis Comments HC URINALYSIS AUTO W/MICRO Routine 03/05/2022 10:26 AM OPERATIONS RESEARCH DIRECTOR Annual physical exam Back pain COMPREHENSIVE METABOLIC PANEL Routine 03/05/2022 10:26 AM OPERATIONS RESEARCH DIRECTOR Annual physical exam Back pain LIPID PANEL Routine 03/05/2022 10:26 AM OPERATIONS RESEARCH DIRECTOR Annual physical exam Back pain C-REACTIVE PROTEIN Routine 03/05/2022 10 :26 AM OPERATIONS RESEARCH DIRECTOR Annual physical exam Back pain CBC W/DIFF AUTOMATED Routine 03/05/2022 10:26 AM OPERATIONS RESEARCH DIRECTOR Annual physical exam Back pain THYROID STIM HORMONE TSH Routine 03/05/2022 10:26 AM OPERATIONS RESEARCH DIRECTOR Annual physical exam Back pain documented in this encounter Results * C-REACTIVE PROTEIN (03/05/2022 10:26 AM OPERATIONS RESEARCH DIRECTOR) C-REACTIVE PROTEIN 0.28 <0.30 mg/dL 03/05/2022 11:00 AM OPERATIONS RESEARCH DIRECTOR [facility] 03/05/2022 10:2 6 AM OPERATIONS RESEARCH DIRECTOR us Lennox Ann MD LABORATORY Final Result Performing Organization Address [facility] Co de Phone Number [facility] [address] [place] [address], * THYROID STIM HORMONE, TSH (03/05/2022 10:26 AM OPERATIONS RESEARCH DIRECTOR) Pathologist [facility] TSH 1.236 0.358 - 3.740 uIU/ML 03/05/2022 11:00 AM OPERATIONS RESEARCH DIRECTOR [facility] Comment: ASSAY PERFORMED BY CHEMILUMINESCENT IMMUNOASSAY METHODOLOGY USING SIEMENS DIMENSION REAGENT. PATIENT RESULTS DETERMINED BY ASSAYS FROM DIFFERENT MANUFACTURERS AND/OR BY DIFFERENT METHODS MAY NOT BE COMPARABLE. 03/05/2022 10:2 6 AM OPERATIONS RESEARCH DIRECTOR us Lennox Ann MD LABORATORY Final Result Performing Organization Address City/[facility]/ZIP Co de Phone Number [facility] [address] [place] [address], [place] [phone] * (ABNORMAL) URINALYSIS (03/05/2022 10:26 AM OPERATIONS RESEARCH DIRECTOR) COLOR (U) YELLOW 03/05/2022 11:36 AM [facility] TRANSPARENCY CLEAR 03/05/2022 11:36 AM [facility] SPECIFIC GRAVITY (U) 1.030(H) 1.000 - 1.025 03/05/2022 11:36 AM [facility] Comment:EQUAL TO OR GREATER THAN U PH 6.0 5.0 - 8.0 03/05/2022 11:36 AM [facility] LEUKOCYTES (U) NEGATIVE NEGATIVE 03/05/2022 11:36 AM [facility] NITRITES NEGATIVE NEGATIVE 03/05/2022 11:36 AM [facility] PROTEIN (U) NEGATIVE NEGATIVE 03/05/2022 11:36 AM [facility] URINE GLUCOSE NEGATIVE NEGATIVE 03/05/2022 11:36 AM [facility] KETONES MG/DL (U) NEGATIVE NEGATIVE 03/05/2022 11:36 AM [facility] UROBILINOGEN 0.2 <1.0 EU/DL 03/05/2022 11:36 AM [facility] BILIRUBIN (U) NEGATIVE NEGATIVE 03/05/2022 11:36 AM [facility] BLOOD (U) NEGATIVE NEGATIVE 03/05/2022 11:36 AM [facility] WBC/HPF 0-5 0 - 5 /HPF 03/05/2022 11:36 AM [facility] RBC/HPF 0-5 0 - 5 /HPF 03/05/2022 11:36 AM [facility] EPI/LPF RARE /LPF 03/05/2022 11:36 AM [facility] BACTERIA (U) TRACE /HPF 03/05/2022 11:36 AM [facility] MUCUS PRESENT 03/05/2022 11:36 AM [facility] URINE SPECIMEN OBTAINED BY CLEAN CATCH PROCEDURE / Unknown 03/05/2022 10:26 AM OPERATIONS RESEARCH DIRECTOR Lennox Ann MD URINE ORDERABLES Final Result [facility] [address] [place] [address], * (ABNORMAL) CBC W/DIFF AUTOMATED (03/05/2022 10:26 AM OPERATIONS RESEARCH DIRECTOR) WBC 8.96 4.00 - 10.80 x10'3/uL 03/05/2022 10:33 AM [facility] RBC 4.92 4.50 - 6.10 x10'6/uL 03/05/2022 10:33 AM [facility] HGB 15.6 13.0 - 18.0 G/DL 03/05/2022 10:33 AM [facility] HCT 46.3 37.0 - 52.0 % 03/05/2022 10:33 AM [facility] MCV 94.1 78.0 - 100.0 FL 03/05/2022 10:33 AM [facility] MCH 31.7(H) 27.0 - 31.0 PG 03/05/2022 10:33 AM [facility] MCHC 33.7 33.0 - 36.0 G/DL 03/05/2022 10:33 AM [facility] RDW 12.1 11.5 - 14.5 % 03/05/2022 10:33 AM [facility] PLT 274 150 - 350 x10'3/uL 03/05/2022 10:33 AM [facility] MPV 8.1 7.4 - 10.4 FL 03/05/2022 10:33 AM [facility] CBC COMMENT NORMAL REFERENCE RANGE NOT ESTABLISHED FOR THE PROPORTIONAL LEUKOCYTE DIFFERENTIAL. 03/05/2022 10:33 AM [facility] NEUTROPHILS % 50.8 % 03/05/2022 10:33 AM [facility] LYMPHOCYTES % 34.7 % 03/05/2022 10:33 AM [facility] MONOCYTES % 9.5 % 03/05/2022 10:33 AM [facility] EOSINOPHILS % 4.0 % 03/05/2022 10:33 AM [facility] BASOPHILS % 0.7 % 03/05/2022 10:33 AM [facility] IMMATURE GRANS % 0.3 % 03/05/20 10:33 AM [facility] NRBC 0.0 % 03/05/2022 10:33 AM [facility] ABS. NEUTROPHILS 4.55 1.60 - 8.30 x10'3/uL 03/05/2022 10:33 AM [facility] ABS. LYMPHOCYTES 3.11 0.80 - 4.70 x10'3/uL 03/05/2022 10:33 AM [facility] ABS. MONOCYTES 0.85 0.00 - 1.50 x10'3/uL 03/05/2022 10:33 AM [facility] ABS. EOSINOPHILS 0.36 0.00 - 0.40 x10'3/uL 03/05/2022 10:33 AM [facility] ABS. BASOPHILS 0.06 0.00 - 0.20 x10'3/uL 03/05/2022 10:33 AM [facility] ABS. IMMATURE GRANULOCYTES 0.03 0.00 - 0.03 x10'3/uL 03/05/2022 10:33 AM [facility] ABS. NUCLEATED RBC'S 0.00 0.00 x10'3/uL 03/05/2022 10:33 AM [facility] 03/05/2022 10:2 6 AM [facility] Lennox Ann MD LABORATORY Final Result [facility] [address] [place] [address], * (ABNORMAL) LIPID PANEL (03/05/2022 10:26 AM OPERATIONS RESEARCH DIRECTOR) CHOLESTEROL 205(H) <200 MG/DL 03/05/2022 11:00 AM [facility] Comment: THE NATIONAL LIPID ASSOCIATION AND THE NATIONAL CHOLESTEROL EDUCATION PROGRAM (NCEP) HAVE SET THE FOLLOWING GUIDELINES FOR TOTAL CHOLESTEROL IN ADULTS AGES 18 AND UP. DESIRABLE: <200 BORDERLINE HIGH: 200-239 HIGH: > OR = 240 TRIGLYCERIDES 155(H) <150 MG/DL 03/05/2022 11:00 AM [facility] Comment: THE NATIONAL LIPID ASSOCIATION AND THE NATIONAL CHOLESTEROL EDUCATION PROGAM (NCEP) HAVE SET THE FOLLOWING GUIDELINES FOR TRIGLYCERIDES IN ADULTS AGES 18 AND UP. NORMAL: <150 BORDERLINE HIGH: 150 TO 199 HIGH: 200 TO 499 VERY HIGH: >499 HDL 57 >39 MG/DL 03/05/2022 11:00 AM OPERATIONS RESEARCH DIRECTOR [facility] Comment: THE NATIONAL LIPID ASSOCIATION AND THE NATIONAL CHOLESTEROL EDUCATION PROGAM (NCEP) HAVE SET THE FOLLOWING GUIDELINES FOR HDL CHOLESTEROL IN ADULTS AGES 18 AND UP. MALES: >39 FEMALES: >49 LDL-C 117(H) <100 MG/DL 03/05/2022 11:00 AM OPERATIONS RESEARCH DIRECTOR [facility] Comment: THE NATIONAL LIPID ASSOCIATION AND THE NATIONAL CHOLESTEROL EDUCATION PROGAM (NCEP) HAVE SET THE FOLLOWING GUIDELINES FOR LDL CHOLESTEROL IN ADULTS AGES 18 AND UP. DESIRABLE: <100 ABOVE DESIRABLE: 100 TO 129 BORDERLINE HIGH: 130 TO 159 HIGH: 160 TO 189 VERY HIGH: >189 VLDL CALCULATION 31 MG/DL 03/05/20 11:00 AM [facility] Comment:REFERENCE RANGE NOT ESTABLISHED CHOL/HDL RATIO 3.6 03/05/2022 11:00 AM OPERATIONS RESEARCH DIRECTOR [facility] Comment:REFERENCE RANGE NOT ESTABLISHED LDL/HDL 2.1 03/05/2022 11:00 AM OPERATIONS RESEARCH DIRECTOR [facility] Comment:REFERENCE RANGE NOT ESTABLISHED NON HDL CHOLESTEROL 148 MG/DL 03/05/2022 11:00 AM OPERATIONS RESEARCH DIRECTOR [facility] Comment:REFERENCE RANGE NOT ESTABLISHED 03/05/2022 10:2 6 AM OPERATIONS RESEARCH DIRECTOR Lennox Ann MD LABORATORY Final Result [facility] [address] [place] [address], * (ABNORMAL) COMPREHENSIVE METABOLIC PANEL (03/05/2022 10:26 AM [facility]) SODIUM S/P/B 139 136 - 145 MMOL/L 03/05/2022 11:00 AM [facility] POTASSIUM S/P/B 4.3 3.5 - 5.1 MMOL/L 03/05/2022 11:00 AM [facility] CHLORIDE S/P/B 104 98 - 107 MMOL/L 03/05/2022 11:00 AM [facility] CO2 31.9 21.0 - 32.0 MMOL/L 03/05/2022 11:00 AM [facility] GLUCOSE 112(H) 70 - 99 MG/DL 03/05/2022 11:00 AM [facility] Comment: FASTING GLUCOSE 100 TO 125 MG/DL IS CONSISTENT WITH IMPAIRED FASTING GLUCOSE. FASTING GLUCOSE >125 MG/DL IS CONSISTENT WITH DIABETES. RANDOM GLUCOSE >200 MG/DL WITH HYPERGLYCEMIC SYMPTOMS IS CONSISTENT WITH DIABETES. PER ADA GUIDELINES BUN 11 6 - 24 MG/DL 03/05/2022 11:00 AM [facility] CREATININE S/P/B 1.08 0.70 - 1.30 MG/DL 03/05/2022 11:00 AM [facility] CALCIUM S/P/B 9.8 8.4 - 10.5 MG/DL 03/05/2022 11:00 AM [facility] BILIRUBIN TOTAL S/P/B 1.5(H) 0.2 - 1.0 MG/DL 03/05/2022 11:00 AM [facility] Comment: THIS ASSAY IS NOT RECOMMENDED FOR PATIENTS UNDERGOING TREATMENT WITH ELTROMBOPAG DUE TO THE POTENTIAL FOR FALSELY ELEVATED RESULTS. ALKALINE PHOSPHATASE S/P/B 83 45 - 115 U/L 03/05/2022 11:00 AM [facility] AST 20 15 - 37 U/L 03/05/2022 11:00 AM [facility] ALT 51 16 - 63 U/L 03/05/2022 11:00 AM [facility] TOTAL PROTEIN S/P/B 7.8 6.4 - 8.2 G/DL 03/05/2022 11:00 AM OPERATIONS RESEARCH DIRECTOR [facility] ALBUMIN S/P/B 4.0 3.4 - 5.0 G/DL 03/05/2022 11:00 AM OPERATIONS RESEARCH DIRECTOR [facility] ANION GAP 3.1(L) 5.0 - 15.0 MMOL/L 03/05/2022 11:00 AM OPERATIONS RESEARCH DIRECTOR [facility] OSMOLALITY (CALC) 288 MOSM/KG 022 11:00 AM OPERATIONS RESEARCH DIRECTOR [facility] Comment:REFERENCE RANGE NOT ESTABLISHED GFR ESTIMATE 86(L) >89 ML/MIN/1. 73 M2 03/05/2022 11:00 AM OPERATIONS RESEARCH DIRECTOR [facility] GFR NOTES GFR REFERENCE S: 03/05/2022 11:00 AM OPERATIONS RESEARCH DIRECTOR [facility] Comment: THE ESTIMATED GFR IS [...] <15 ml/min/1.73 m2 03/05/2022 10:2 6 AM OPERATIONS RESEARCH DIRECTOR Lennox Ann MD LABORATORY Final Result [facility] [address] [place] [address], documented in this encounter Visit Diagnoses Diagnosis Annual physical exam Routine general medical examination at a health care facility Back pain Backache, unspecified documented in this encounter Care Teams Enameler Relationship Specialty Start Date End Date Lennox Ann MD [address] [place] [address] PCP - General INTERNAL MEDICINE 01/16/19 documented as of this encounter
--- OUTSIDE RECORDS SUMMARY | 2024-03-20 09:15 | XMS_ITS | Encounter Summary ---
Author Organization [facility] Address [address] [place] [address]. 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 The surgery was performed on 03/10/2017 . ORIF Clavicle. HPI: He reports LEFT flank pain that has been persistent. He also reports decreased sensation in LEFT chest area. PE: The surgical incision site was clean, dry and intact. The shoulder demonstrates. Decreased sensation over LEFT pec, motor intact,.. Range of motion satisfactory. Peripheral neurovascular exam reveals intact gross motor function. Assessment: Post-op, the patient is doing well, has excellent pain control and is showing no signs of infection. Plan: Done this visit: remove sutures/jamey and xray . XRAYS today reveals clavicle hardware in good position with good reduction of fracture.. Follow up: 4 weeks. Orders Closed displaced fracture of shaft of left clavicle, initial encounter ?? Continue with our present treatment plan.; Status:Complete; Done: 23Mar2017 10:33AM Assessment 1. Fracture of rib, closed (807.00) (S22.39XA) 2. Aftercare following surgery (V58.89) (Z48.89) Sensory disturbance LEFT chest/likely rib fracture Results/Data XR Clavicle Lt XR Clavicle Lt: [address] Patient Name: CHEMA STOCK Date of : 1975 Med Rec #: [id number] Age/Sex: 41/M Pt. Location: ORTHO Attending Provider: RODRÍGUEZ PRESTON MD (TRACY) Ordering Provider: RODRÍGUEZ PRESTON MD (TRACY) Study Date Order Number Procedure 03/23/17 [id number] XR Clavicle Lt Signed Examination: Left clavicle. Exam time: 0933 hours. Clinical history: Fracture. Surgical aftercare. Comparison: 03/05/2017. Technique: Two views. Findings: There has been ORIF of the previously evident comminuted midshaft fracture via a metallic side plate and multiple screws. Alignment of major fracture fragments is near-anatomic. No new fracture is identified. No other significant bone or joint abnormality is noted. Skin jamey are in place. IMPRESSION: Satisfactory postoperative left clavicle. Electronically Signed By: AMBIKA LOWERY MD 03/23/17 1020 Dictated On: 03/23/17 1018 Interpreted By: AMBIKA LOWERY MD Transcribed On: 03/23/17 1018 - INFCE LEFT chest sensory disturbance likely result of block. I anticipate this will resolve with time. Signatures Electronically signed by : Rodríguez Preston M.D.; Mar 23 2017 10:34AM DISTRIBUTION A CLASS LINEMAN (Author) documented in this encounter Plan of Treatment Not on file documented as of this encounter Visit Diagnoses Not on filedocumented in this encounter
--- OUTSIDE RECORDS SUMMARY | 2024-03-20 09:15 | XMS_ITS | Encounter Summary ---
Author Organization [facility] Address [address] [place] [address]. [place] [address] [place] [address] Care Team Providers Care Gas Check Pad Maker Name Role Phone Unavailable Primary Care Provider Unavailabl e Encounter Details Date Type Department Care Team (Late st Contact Info) Description 03/10/2017 Abstract [facility] [facility] [place] [address] Isaac Sam MD [address] [address] Social History Tobacco Use Types Packs/Day Years Used Date Smoking Tobacco: Never Assessed Sex and Gender Information Value Date Recorded Sex Assigned at Not on file Legal Sex Male 5:51 PM TILE AND MARBLE INSTALLER Gender Identity Not on file Sexual Orientation Not on file documented as of this encounter Plan of Treatment Not on file documented as of this encounter Procedures Procedure Name Priority Date/Time Associated Diagnosis Comments BASIC METABOLIC PANEL STAT 03/10/2017 9:45 PM TILE AND MARBLE INSTALLER CBC W/DIFF AUTOMATED STAT 03/10/2017 9:45 PM TILE AND MARBLE INSTALLER documented in this encounter Results * (ABNORMAL) CBC W/DIFF AUTOMATED (03/10/2017 9:45 PM TILE AND MARBLE INSTALLER) WBC 11.7(H) 4.5 - 10.8 x10'3/uL 03/10/2017 9:52 PM TILE AND MARBLE INSTALLER [facility] RBC 4.53 4.50 - 6.10 x10'6/uL 03/10/2017 9:52 PM TILE AND MARBLE INSTALLER [facility] HGB 14.6 13.0 - 18.0 G/DL 03/10/2017 9:52 PM [facility] HCT 40.9 37.0 - 52.0 % 03/10/2017 9:52 PM [facility] MCV 90.3 78.0 - 100.0 FL 03/10/2017 9:52 PM [facility] MCH 32.2(H) 27.0 - 31.0 PG 03/10/2017 9:52 PM [facility] MCHC 35.7 33.0 - 36.0 G/DL 03/10/2017 9:52 PM [facility] RDW 11.7 11.5 - 14.5 % 03/10/2017 9:52 PM [facility] PLT 180 150 - 350 x10'3/uL 03/10/2017 9:52 PM [facility] MPV 8.4 7.4 - 10.4 FL 03/10/2017 9:52 PM [facility] SEG NEUTROPHILS 91.1 % 8 9:52 PM [facility] LYMPHOCYTES 5.8 % 03/10/2017 9:52 PM [facility] MONOCYTES 2.7 % 03/10/2017 9:52 PM [facility] EOSINOPHILS 0.0 % 03/10/2017 9:52 PM [facility] BASOPHILS 0.1 % 03/10/2017 9:52 PM [facility] IMMATURE GRANS % 0.3 % 03/10/19 18 9:52 PM [facility] NRBC 0.0 % 03/10/2017 9:52 PM [facility] ABS. NEUTROPHILS 10.62(H) 1.60 - 8.30 x10'3/uL 03/10/2017 9:52 PM [facility] ABS. LYMPHOCYTES 0.67(L) 0.80 - 4.70 x10'3/uL 03/10/2017 9:52 PM [facility] ABS. MONOCYTES 0.32 0.00 - 1.50 x10'3/uL 03/10/2017 9:52 PM TILE AND MARBLE INSTALLER [facility] ABS. EOSINOPHILS 0.00 0.00 - 0.40 x10'3/uL 03/10/2017 9:52 PM TILE AND MARBLE INSTALLER [facility] ABS. BASOPHILS 0.01 0.00 - 0.20 x10'3/uL 03/10/2017 9:52 PM [facility] ABS. IMMATURE GRANULOCYTES 0.03 0.00 - 0.03 x10'3/uL 03/10/2017 9:52 PM [facility] ABS. NUCLEATED RBC'S 0.00 0.00 x10'3/uL 03/10/2017 9:52 PM [facility] OTHER (type in comments) 03/10/2017 9:45 PM TILE AND MARBLE INSTALLER 03/10/2017 9:49 PM TILE AND MARBLE INSTALLER Comment:WHOLE BLOOD SAMPLE us Generic Conversion Md MICHAEL LABORATORY Final R esult [facility] [address] [place] [id number], * (ABNORMAL) BASIC METABOLIC PANEL (03/10/2017 9:45 PM TILE AND MARBLE INSTALLER) GLUCOSE 248(H) 70 - 99 MG/DL 03/10/2017 10:07 PM [facility] BUN 11 9 - 21 MG/DL 03/10/2017 10:07 PM [facility] CREATININE S/P/B 1.06 0.72 - 1.25 MG/DL 03/10/2017 10:07 PM [facility] SODIUM S/P/B 138 136 - 145 MMOL/L 03/10/2017 10:07 PM [facility] POTASSIUM S/P/B 4.8 3.5 - 5.1 MMOL/L 03/10/2017 10:07 PM [facility] CHLORIDE S/P/B 103 98 - 107 MMOL/L 03/10/2017 10:07 PM [facility] CO2 22.0 22.0 - 29.0 MMOL/L 03/10/2017 10:07 PM TILE AND MARBLE INSTALLER [facility] CALCIUM S/P/B 9.7 8.4 - 10.2 MG/DL 03/10/2017 10:07 PM TILE AND MARBLE INSTALLER [facility] EGFR NON-AFR. AMER. >60 >60 ML/MIN/1.7 3 M2 03/10/2017 10:07 PM TILE AND MARBLE INSTALLER [facility] EGFR AFR. AMER. >60 >60 ML/MIN/1.7 3 M2 03/10/2017 10:07 PM TILE AND MARBLE INSTALLER [facility] ANION GAP 13.0 7 - 16 MMOL/L 03/10/2017 10:07 PM TILE AND MARBLE INSTALLER [facility] 03/10/2017 9:45 PM TILE AND MARBLE INSTALLER 03/10/2017 9:49 PM TILE AND MARBLE INSTALLER us Generic Conversion Md MICHAEL LABORATORY Final R esult [facility] [address] [place] [address], documented in this encounter Visit Diagnoses Diagnosis Pneumonia Pneumonia, organism unspecified documented in this encounter
--- OUTSIDE RECORDS SUMMARY | 2024-03-20 09:15 | XMS_ITS | Encounter Summary ---
Author Organization [facility] Address [address] [place] [address]. [place] [address] [place] [address] Care Team Providers Care Data Analytics Specialist Name Role Phone Unavailable Primary Care Provider Unavailabl e Encounter Details Date Type Department Care Team (Late st Contact Info) Description 03/05/2017 Abstract [facility] [address] [place] [address] Kasandra Echavarria, [employer]ER-BC [address] [facility] [place] [address] Social History Tobacco Use Types Packs/Day Years Used Date Smoking Tobacco: Never Assessed Sex and Gender Information Value Date Recorded Sex Assigned at Not on file Legal Sex Male 5:51 PM HARDWOOD FLOOR LAYER Gender Identity Not on file Sexual Orientation Not on file documented as of this encounter Plan of Treatment Not on file documented as of this encounter Visit Diagnoses Diagnosis Closed displaced fracture of shaft of left clavicle Closed fracture of shaft of clavicle documented in this encounter
--- OUTSIDE RECORDS SUMMARY | 2024-03-20 09:15 | XMS_ITS | Encounter Summary ---
Author Organization [facility] Address [address] [place] [address]. [place] [address] [place] [address] Care Team Providers Care Printing Sign Machine Operator Name Role Phone Lennox Ann MD Primary Care Provider [phone] Encounter Details Date Type Department Care Team (Late st Contact Info) Description 01/16/2019 11:38 AM PORCELAIN FINISHER - 01/16/2019 11:59 PM PORCELAIN FINISHER Hospital Encounter [facility] [address] [facility] [place] [place] [address] Lennox Ann MD [address] [place] [id number] Discharge Disposition: Home or Self Care (Routine Discharge) Social History Tobacco Use Types Packs/Day Years Used Date Smoking Tobacco: Never Assessed Sex and Gender Information Value Date Recorded Sex Assigned at Not on file Legal Sex Male 5:51 PM PORCELAIN FINISHER Gender Identity Not on file Sexual Orientation Not on file documented as of this encounter Plan of Treatment Not on file documented as of this encounter Procedures Procedure Name Priority Date/Time Associated Diagnosis Comments XR SHOULDER RT MIN 2V Routine 01/16/2019 12:06 PM PORCELAIN FINISHER Shoulder pain, right documented in this encounter Results * XR SHOULDER RT MIN 2V (01/16/2019 12:06 PM PORCELAIN FINISHER) Anatomical Region Laterality Modality Shoulder Radiographic Dinorah ging 01/16/2019 12:4 2 PM PORCELAIN FINISHER Impressions 01/16/2019 12:44 PM PORCELAIN FINISHER IMPRESSION: No acute findings. Interpreted By: Conrado Amezcua, 01/16/2019 12:42 PM Narrative 01/16/2019 12:44 PM PORCELAIN FINISHER Examination: Right shoulder. Exam time: 1157 hours. Clinical history: Pain for six months worsening over time. No known injury. Comparison: ??10/08/2008. ?? Technique: Four views. Findings: No fracture, dislocation or other acute bony abnormality is identified. ?No other significant bone or joint abnormality is noted. Pulmonary granulomatous scarring is noted. The soft tissues are otherwise unremarkable. Procedure Note Conrado Amezcua MD - 01/16/2019 Examination: Right shoulder. Exam time: 1157 hours. Clinical history: Pain for six months worsening over time. No knowninjury. Comparison: 10/08/2008. Technique: Four views. Findings: No fracture, dislocation or other acute bony abnormality is identified. No other significant bone or joint abnormality isnoted. Pulmonary granulomatous scarring is noted. The soft tissues areotherwise unremarkable. IMPRESSION: No acute findings. Interpreted By: Conrado Amezcua, 01/16/2019 12:42 PM Lennox Ann MD GENERAL IMAGING Final Result documented in this encounter Visit Diagnoses Diagnosis Shoulder pain, right Pain in joint, shoulder region documented in this encounter Care Teams Printing Sign Machine Operator Relationship Specialty Start Date End Date Lennox Ann MD [address] [place] [address] PCP - General INTERNAL MEDICINE 01/16/19 documented as of this encounter
--- OUTSIDE RECORDS SUMMARY | 2024-03-20 09:15 | XMS_ITS | Encounter Summary ---
Author Organization [facility] Address [address] [place] [address]. [place] [address] [place] [address] Care Team Providers Care Uniforms Sales Representative Name Role Phone Unavailable Primary Care Provider Unavailabl e Encounter Details Date Type Department Care Team (Late st Contact Info) Description 03/10/2017 Abstract [place] [id number] [place] [id number] Rodríguez Preston MD [address] [place] [address] Social History Tobacco Use Types Packs/Day Years Used Date Smoking Tobacco: Never Assessed Sex and Gender Information Value Date Recorded Sex Assigned at Not on file Legal Sex Male 5:51 PM FACING END TRIMMER Gender Identity Not on file Sexual Orientation Not on file documented as of this encounter Plan of Treatment Not on file documented as of this encounter Procedures Procedure Name Priority Date/Time Associated Diagnosis Comments XR CLAVICLE LT Routine 03/23/2017 10:18 AM FACING END TRIMMER documented in this encounter Results * XR CLAVICLE LT (03/23/2017 10:18 AM FACING END TRIMMER) Anatomical Region Laterality Modality Shoulder Radiographic Dinorah ging 03/23/2017 10:1 8 AM FACING END TRIMMER 03/23/2017 10:18 AM FACING END TRIMMER Narrative 03/23/2017 10:22 AM FACING END TRIMMER [facility] ?? [address] [employer] ?? [place], [place] ? Patient Name: CHEMA STOCK Date of : 1975 ?? Med Rec #: [id number] ??Age/Sex: 41/M ?Pt. Location: ORTHO ?? Attending Provider: RODRÍGUEZ PRESTON MD (TRACY) ?? Ordering Provider: RODRÍGUEZ PRESTON MD (TRACY) ? Study Date Order Number Procedure ?? 03/23/17 [id number] XR Clavicle Lt ? Signed ? Examination: Left clavicle. ? Exam time: 0933 hours. ? Clinical history: Fracture. Surgical aftercare. ? Comparison: 03/05/2017. ? Technique: Two views. ? Findings: There has been ORIF of the previously evident comminuted midshaft fracture via a metallic side plate and multiple screws. Alignment of major fracture fragments is near-anatomic. No new fracture is identified. No other significant bone or joint abnormality is noted. Skin jamey are in place. ? IMPRESSION: ?? Satisfactory postoperative left clavicle. ? Electronically Signed By: AMBIKA LOWERY MD 03/23/17 1020 ? Dictated On: 03/23/17 1018 ?? Interpreted By: AMBIKA LOWERY MD ?? Transcribed On: 03/23/17 1018 - [facility] ?? Procedure Note Chuy Almonte MD - 05/26/[address] Patient Name: CHEMA STOCK Date of : 1975 Med Rec #: [id number] Age/Sex: 41/M Pt. Location: ORTHO Attending Provider: RODRÍGUEZ PRESTON MD (TRACY) Ordering Provider: RODRÍGUEZ PRESTON MD (TRACY) Study Date Order Number Procedure 03/23/17 [id number] XR Clavicle Lt Signed Examination: Left clavicle. Exam time: 0933 hours. Clinical history: Fracture. Surgical aftercare. Comparison: 03/05/2017. Technique: Two views. Findings: There has been ORIF of the previously evident comminutedmidshaft fracture via a metallic side plate and multiple screws. Alignment of major fracturefragments is near-anatomic. No new fracture is identified. No other significant bone or joint abnormalityis noted. Skin jamey are in place. IMPRESSION: Satisfactory postoperative left clavicle. Electronically Signed By: AMBIKA LOWERY MD 03/23/17 1020 Dictated On: 03/23/17 1018 Interpreted By: AMBIKA LOWERY MD Transcribed On: 03/23/17 1018 - [facility] us Rodríguez Preston MD GENERAL IMAGING Final Result documented in this encounter Visit Diagnoses Not on filedocumented in this encounter
--- OUTSIDE RECORDS SUMMARY | 2024-03-20 09:15 | XMS_ITS | Encounter Summary ---
Author Organization [facility] Address [address] [place] [address]. [place] [address] [place] [address] Care Team Providers Care Customer Acquisition Manager Name Role Phone Lennox Ann MD Primary Care Provider [phone] Reason for Referral * Imaging (Routine) - Closed Specialty Diagnoses / Procedures Referred By Malina bonilla Referred To Contact RADIOLOGY Diagnoses Pain in left leg Lumbar radiculopathy Procedures MRI LUMB SPINE WWO Charity Haywood MD [address] [place] [address] Phone: tel: fax: Referral ID Status Reason Start Date Expiration Date Visits Re quested Visits Authorized [id number] Closed 02/24/2021 03/27/[address] LETTERER Reason for Visit * Imaging (Routine) - Closed Specialty Diagnoses / Procedures Referred By Malina bonilla Referred To Contact RADIOLOGY Diagnoses Pain in left leg Lumbar radiculopathy Procedures MRI LUMB SPINE WWO Charity Haywood MD [address] [place] [address] Phone: tel: fax: Referral ID Status Reason Start Date Expiration Date Visits Re quested Visits Authorized [id number] Closed 02/24/2021 03/27/2022 1 1 Encounter Details Date Type Department Care Team (Late st Contact Info) Description 03/26/2021 6:46 AM RAILROAD CAR LETTERER - 03/26/2021 11:59 PM RAILROAD CAR LETTERER Hospital Encounter [facility] [address] [facility] [place] [address] Charity Mejias MD [address] [place] [address] Discharge Disposition: Home or Self Care (Routine Discharge) Social History Tobacco Use Types Packs/Day Years Used Date Smoking Tobacco: Never Assessed Sex and Gender Information Value Date Recorded Sex Assigned at Not on file Legal Sex Male 5:51 PM RAILROAD CAR LETTERER Gender Identity Not on file Sexual Orientation Not on file COVID-19 Exposure Response Date Recorded In the last month, have you been in contact with someone who was confirmed or suspected to have Coronavirus / COVID-19? No / Unsure 03/26/2021 6:44 AM RAILROAD CAR LETTERER documented as of this encounter Plan of Treatment Not on file documented as of this encounter Procedures Procedure Name Priority Date/Time Associated Diagnosis Comments MRI LUMB SPINE WWO CON Routine 03/26/2021 8:01 AM RAILROAD CAR LETTERER Pain in left leg Lumbar radiculopathy documented in this encounter Results * MRI LUMB SPINE WWO CON (03/26/2021 8:01 AM RAILROAD CAR LETTERER) Anatomical Region Laterality Modality Spine Magnetic Resonan ce 03/26/2021 8:48 AM RAILROAD CAR LETTERER Impressions 03/26/2021 8:59 AM RAILROAD CAR LETTERER IMPRESSION: Multilevel lumbar spondylosis as detailed within the body of the report. There are various degrees of spinal canal and neural foraminal stenosis as discussed. Ordered By: CHARITY MEJIAS Interpreted By: Carlos Houston MD, 03/26/2021 8:48 AM Narrative 03/26/2021 8:59 AM RAILROAD CAR LETTERER EXAMINATION: MRI lumbar spine with and without contrast. INDICATION: Lumbar radiculopathy. TECHNIQUE: Multiplanar, multisequence MR images of the lumbar spine were obtained before and after the administration of contrast. 15 mL of MultiHance was administered without adverse event. COMPARISON: MRI 05/07/2014. FINDINGS: There are 5 lumbar type vertebral bodies designated as L1 through L5; using this numbering system, the conus medullaris terminates at T12 and appears unremarkable. The lumbar vertebral alignment is preserved. The vertebral body heights are normal. Degenerative endplate marrow signal changes are seen throughout the lumbar spine, most notably within the inferior endplate of L2. Redemonstrated probable hemangioma within L3. Facet alignment is preserved. Visualized portions of the soft tissues reveal no significant abnormality. No distinct abnormal enhancement identified. Individual levels are as follows: L1-L2: Mild facet arthropathy and ligamentous thickening. Small broad-based disc bulge. No significant spinal canal or neural foraminal stenosis. L2-L3: Mild facet arthropathy and ligamentous thickening. Small broad-based disc bulge. No significant spinal canal stenosis. Mild to moderate right and mild left neural foraminal stenosis. L3-L4: Mild facet arthropathy and ligamentous thickening. Small to moderate broad-based disc bulge. Mild spinal canal stenosis. Moderate to severe bilateral neural foraminal stenosis. L4-L5: Mild facet arthropathy and ligamentous thickening. Moderate broad-based disc bulge with possible small annular fissure posteriorly. Mild spinal canal stenosis. Moderate right and severe left neural foraminal stenosis. L5-S1: Mild facet arthropathy and ligamentous thickening. Moderate broad-based disc bulge. No significant spinal canal stenosis. Mild to moderate right and severe left neural foraminal stenosis. Procedure Note Carlos Houston MD - 03/26/2021 EXAMINATION: MRI lumbar spine with and without contrast. INDICATION: Lumbar radiculopathy. TECHNIQUE: Multiplanar, multisequence MR images of the lumbar spine were obtainedbefore and after the administration of contrast. 15 mL of MultiHance wasadministered without adverse event. COMPARISON: MRI 05/07/2014. FINDINGS: There are 5 lumbar type vertebral bodies designated as L1 through L5;using this numbering system, the conus medullaris terminates at T12 andappears unremarkable. The lumbar vertebral alignment is preserved. Thevertebral body heights are normal. Degenerative endplate marrow signalchanges are seen throughout the lumbar spine, most notably within theinferior endplate of L2. Redemonstrated probable hemangioma within L3.Facet alignment is preserved. Visualized portions of the soft tissuesreveal no significant abnormality. No distinct abnormal enhancementidentified. Individual levels are as follows: L1-L2: Mild facet arthropathy and ligamentous thickening. Smallbroad-based disc bulge. No significant spinal canal or neural foraminalstenosis. L2-L3: Mild facet arthropathy and ligamentous thickening. Smallbroad-based disc bulge. No significant spinal canal stenosis. Mild tomoderate right and mild left neural foraminal stenosis. L3-L4: Mild facet arthropathy and ligamentous thickening. Small tomoderate broad-based disc bulge. Mild spinal canal stenosis. Moderate tosevere bilateral neural foraminal stenosis. L4-L5: Mild facet arthropathy and ligamentous thickening. Moderatebroad-based disc bulge with possible small annular fissure posteriorly.Mild spinal canal stenosis. Moderate right and severe left neuralforaminal stenosis. L5-S1: Mild facet arthropathy and ligamentous thickening. Moderatebroad-based disc bulge. No significant spinal canal stenosis. Mild tomoderate right and severe left neural foraminal stenosis. IMPRESSION: Multilevel lumbar spondylosis as detailed within the body of the report.There are various degrees of spinal canal and neural foraminal stenosis asdiscussed. Ordered By: CHARITY MEJIAS Interpreted By: Carlos Houston MD, 03/26/2021 8:48 AM Charity Mejias MD MRI Final Result documented in this encounter Visit Diagnoses Diagnosis Pain in left leg Lumbar radiculopathy Thoracic or lumbosacral neuritis or radiculitis, unspecified documented in this encounter Administered Medications Inactive Administered Medications - up to 3 most recent administrations Medication Order MAR Action Action Date Dose Rate Site gadobenate dimeglumine (MULTIHANCE) 529 MG/ML injection 15 mL 15 mL, Intravenous, IMG once as needed, Contrast, 1 dose, Starting on Wed03/26/21 at 0719, Until Wed03/26/21 at 0736 Given 03/26/2021 7:36 AM RAILROAD CAR LETTERER 15 mLs documented in this encounter Care Teams Customer Acquisition Manager Relationship Specialty Start Date End Date Lennox Ann MD [address] [place] [phone] PCP - General INTERNAL MEDICINE 01/16/19 documented as of this encounter
--- OUTSIDE RECORDS SUMMARY | 2024-03-20 09:15 | XMS_ITS | Encounter Summary ---
Author Organization [facility] Address [address] [place] [address]. [place] [address] [place] [address] Care Team Providers Care Frame Catcher Name Role Phone Unavailable Primary Care Provider Unavailabl e Encounter Details Date Type Department Care Team (Late st Contact Info) Description 03/23/2017 Abstract [facility] [address] [place] [address] Rodríguez Preston MD [address] [place] [address] Social History Tobacco Use Types Packs/Day Years Used Date Smoking Tobacco: Never Assessed Sex and Gender Information Value Date Recorded Sex Assigned at Not on file Legal Sex Male 5:51 PM EXPLORATION GEOLOGIST Gender Identity Not on file Sexual Orientation Not on file documented as of this encounter Plan of Treatment Not on file documented as of this encounter Visit Diagnoses Diagnosis Displaced fracture of shaft of left clavicle with routine healing Aftercare for healing traumatic fracture of other bone documented in this encounter
--- OUTSIDE RECORDS SUMMARY | 2024-03-20 09:15 | XMS_ITS | Encounter Summary ---
Author Organization [facility] Address [address] [place] [address]. [place] [address] [place] [address] Care Team Providers Care Marine Insurance Claim Examiner Name Role Phone Unavailable Primary Care Provider Unavailabl e Encounter Details Date Type Department Care Team (Late st Contact Info) Description 11/02/[address] [facility] [address] [place] [address] Lennox Ann MD [address] [place] [address] Social History Tobacco Use Types Packs/Day Years Used Date Smoking Tobacco: Never Assessed Sex and Gender Information Value Date Recorded Sex Assigned at Not on file Legal Sex Male 5:51 PM TOY PACKER Gender Identity Not on file Sexual Orientation Not on file documented as of this encounter Plan of Treatment Not on file documented as of this encounter Visit Diagnoses Diagnosis Abdominal pain Abdominal pain, unspecified site documented in this encounter
--- OUTSIDE RECORDS SUMMARY | 2024-03-20 09:15 | XMS_ITS | Encounter Summary ---
Author Organization [facility] Address [address] [place] [address]. [place] [address] [place] [address] Care Team Providers Care Seamer Operator Name Role Phone Lennox Ann MD Primary Care Provider Encounter Details Date Type Department Care Team (Late st Contact Info) Description 08/20/2020 8:15 AM CDT - 08/20/2020 11:59 PM CDT Hospital Encounter [facility] [facility] [place] [address] Lennox Ann MD [address] [place] [address] Discharge Disposition: Home or Self Care (Routine Discharge) Social History Tobacco Use Types Packs/Day Years Used Date Smoking Tobacco: Never Assessed Sex and Gender Information Value Date Recorded Sex Assigned at Not on file Legal 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 Gender Identity Not on file Sexual Orientation [...] Comments URINALYSIS WI REFLEX TO CULTURE Routine 08/20/2020 8:35 AM CDT Annual physical exam HEMOGLOBIN, GLYCOSYLATED Routine 08/20/2020 8:33 AM CDT Impaired fasting blood sugar COMPREHENSIVE METABOLIC PANEL Routine 08/20/2020 8:33 AM CDT Annual physical exam LIPID PANEL Routine 08/20/2020 8:33 AM CDT Annual physical exam CBC W/DIFF AUTOMATED Routine 08/20/2020 8:33 AM CDT Annual physical exam THYROID STIM HORMONE TSH Routine 08/20/2020 8:33 AM CDT Annual physical exam documented in this encounter Results * (ABNORMAL) URINALYSIS WI REFLEX TO CULTURE (08/20/2020 8:35 AM CDT) COLOR (U) DARK YELLOW 08/20/2020 10:23 AM CDT [facility] TRANSPARENCY SLIGHTLY CLOUDY 08/20/2020 10:23 AM CDT [facility] SPECIFIC GRAVITY (U) 1.030(H) 1.000 - 1.025 08/20/2020 10:23 AM CDT [facility] Comment:EQUAL TO OR GREATER THAN U PH 5.5 5.0 - 8.0 08/20/2020 10:23 AM CDT [facility] LEUKOCYTES (U) NEGATIVE NEGATIVE 08/20/2020 10:23 AM CDT [facility] NITRITES NEGATIVE NEGATIVE 08/20/2020 10:23 AM CDT [facility] PROTEIN (U) NEGATIVE NEGATIVE 08/20/2020 10:23 AM CDT [facility] URINE GLUCOSE NEGATIVE NEGATIVE 08/20/2020 10:23 AM CDT [facility] KETONES MG/DL (U) TRACE(A) NEGATIVE 08/20/2020 10:23 AM CDT [facility] UROBILINOGEN 0.2 <1.0 EU/DL 08/20/2020 10:23 AM CDT [facility] BILIRUBIN (U) NEGATIVE NEGATIVE 08/20/2020 10:23 AM CDT [facility] BLOOD (U) NEGATIVE NEGATIVE 08/20/2020 10:23 AM CDT [facility] WBC/HPF RARE(A) 0 - 5 /HPF 08/20/2020 10:23 AM CDT [facility] RBC/HPF RARE(A) 0 - 5 /HPF 08/20/2020 10:23 AM CDT [facility] EPI/HPF RARE /LPF 08/20/2020 10:23 AM CDT [facility] BACTERIA (U) TRACE /HPF 08/20/2020 10:23 AM CDT [facility] MUCUS PRESENT 08/20/2020 10:23 AM CDT [facility] CULTURE & SENSITIVITY INDICATED? NOT INDICATED 08/20/2020 10:23 AM CDT [facility] URINE SPECIMEN OBTAINED BY CLEAN CATCH PROCEDURE / Unknown 08/20/2020 8:35 AM CDT us Lennox Ann MD URINE ORDERABLES Final Result Performing Organization Address City/[facility]/ZIP Co de Phone Number [facility] [address] [place], [place] [address] [place] [address], * HEMOGLOBIN, GLYCOSYLATED (08/20/2020 8:33 AM CDT) HGB A1C 5.2 <5.7 % 08/20/2020 2:54 PM CDT [facility] Comment: 5.7 TO 6.4% INCREASED RISK OF DIABETES > OR = 6.5% CONSISTENT WITH DIABETES PER ADA GUIDELINES ESTIMATED AVG GLUCOSE 103 70 - 140 MG/DL 08/20/2020 2:54 PM CDT [facility] 08/20/2020 8:33 AM CDT us Lennox Ann MD LABORATORY Final Result Performing Organization Address City/[facility]/ZIP Co de Phone Number [facility] [address] [place], [place] [address] [place] [address], * THYROID STIM HORMONE, TSH (08/20/2020 8:33 AM CDT) TSH 1.382 0.358 - 3.740 uIU/ML 08/20/2020 9:05 AM CDT [facility] 08/20/2020 8:33 AM CDT Lennox Ann MD LABORATORY Final Result [facility] [address] [place] [address], * (ABNORMAL) CBC W/DIFF AUTOMATED (08/20/2020 8:33 AM CDT) Pathologist [facility] WBC 6.5 4.5 - 10.8 x10'3/uL 08/20/2020 8:41 AM CDT [facility] RBC 4.55 4.50 - 6.10 x10'6/uL 08/20/2020 8:41 AM CDT [facility] HGB 15.0 13.0 - 18.0 G/DL 08/20/2020 8:41 AM CDT [facility] HCT 44.2 37.0 - 52.0 % 08/20/2020 8:41 AM CDT [facility] MCV 97.1 78.0 - 100.0 FL 08/20/2020 8:41 AM CDT [facility] MCH 33.0(H) 27.0 - 31.0 PG 08/20/2020 8:41 AM CDT [facility] MCHC 33.9 33.0 - 36.0 G/DL 08/20/2020 8:41 AM CDT [facility] RDW 12.2 11.5 - 14.5 % 08/20/2020 8:41 AM CDT [facility] PLT 216 150 - 350 x10'3/uL 08/20/2020 8:41 AM CDT [facility] MPV 8.5 7.4 - 10.4 FL 08/20/2020 8:41 AM CDT [facility] DIFFERENTIAL COMMENT NORMAL REFERENCE RANGE NOT ESTABLISHED FOR THE PROPORTIONAL LEUKOCYTE DIFFERENTIAL. 08/20/2020 8:41 AM CDT [facility] SEG NEUTROPHILS 48.9 % 8:41 AM CDT [facility] LYMPHOCYTES 34.0 % 08/20/2020 8:41 AM CDT [facility] MONOCYTES 11.1 % 08/20/2020 8:41 AM CDT [facility] EOSINOPHILS 4.9 % 08/20/2020 8:41 AM CDT [facility] BASOPHILS 0.9 % 08/20/2020 8:41 AM CDT [facility] IMMATURE GRANS % 0.2 % 08/21/19 8:41 AM CDT [facility] NRBC 0.0 % 08/20/2020 8:41 AM CDT [facility] ABS. NEUTROPHILS 3.18 1.60 - 8.30 x10'3/uL 08/20/2020 8:41 AM CDT [facility] ABS. LYMPHOCYTES 2.21 0.80 - 4.70 x10'3/uL 08/20/2020 8:41 AM CDT [facility] ABS. MONOCYTES 0.72 0.00 - 1.50 x10'3/uL 08/20/2020 8:41 AM CDT [facility] ABS. EOSINOPHILS 0.32 0.00 - 0.40 x10'3/uL 08/20/2020 8:41 AM CDT [facility] ABS. BASOPHILS 0.06 0.00 - 0.20 x10'3/uL 08/20/2020 8:41 AM CDT [facility] ABS. IMMATURE GRANULOCYTES 0.01 0.00 - 0.03 x10'3/uL 08/20/2020 8:41 AM CDT [facility] ABS. NUCLEATED RBC'S 0.00 0.00 x10'3/uL 08/20/2020 8:41 AM CDT [facility] 08/20/2020 8:33 AM CDT Lennox Ann MD LABORATORY Final Result [facility] [address] [id number], * (ABNORMAL) LIPID PANEL (08/20/2020 8:33 AM CDT) CHOLESTEROL 166 <200 MG/DL 08/20/2020 9:05 AM CDT [facility] Comment: THE NATIONAL LIPID ASSOCIATION AND THE NATIONAL CHOLESTEROL EDUCATION PROGRAM (NCEP) HAVE SET THE FOLLOWING GUIDELINES FOR TOTAL CHOLESTEROL IN ADULTS AGES 18 AND UP. DESIRABLE: <200 BORDERLINE HIGH: 200-239 HIGH: > OR = 240 TRIGLYCERIDES 79 <150 MG/DL 08/20/2020 9:05 AM CDT [facility] Comment: THE NATIONAL LIPID ASSOCIATION AND THE NATIONAL CHOLESTEROL EDUCATION PROGAM (NCEP) HAVE SET THE FOLLOWING GUIDELINES FOR TRIGLYCERIDES IN ADULTS AGES 18 AND UP. NORMAL: <150 BORDERLINE HIGH: 150 TO 199 HIGH: 200 TO 499 VERY HIGH: >499 HDL 50 >39 MG/DL 08/20/2020 9:05 AM CDT [facility] Comment: THE NATIONAL LIPID ASSOCIATION AND THE NATIONAL CHOLESTEROL EDUCATION PROGAM (NCEP) HAVE SET THE FOLLOWING GUIDELINES FOR HDL CHOLESTEROL IN ADULTS AGES 18 AND UP. MALES: >39 FEMALES: >49 LDL (CALCULATED) 100(H) <100 MG/DL 08/21/19 9:05 AM CDT [facility] Comment: THE NATIONAL LIPID ASSOCIATION AND THE NATIONAL CHOLESTEROL EDUCATION PROGAM (NCEP) HAVE SET THE FOLLOWING GUIDELINES FOR LDL CHOLESTEROL IN ADULTS AGES 18 AND UP. DESIRABLE: <100 ABOVE DESIRABLE: 100 TO 129 BORDERLINE HIGH: 130 TO 159 HIGH: 160 TO 189 VERY HIGH: >189 VLDL CALCULATION 16 MG/DL 08/21/19 9:05 AM CDT [facility] Comment:REFERENCE RANGE NOT ESTABLISHED CHOL/HDL RATIO 3.3 08/20/2020 9:05 AM CDT [facility] Comment:REFERENCE RANGE NOT ESTABLISHED LDL/HDL 2.0 08/20/2020 9:05 AM CDT [facility] Comment:REFERENCE RANGE NOT ESTABLISHED NON HDL CHOLESTEROL 116 MG/DL 08/20/2020 9:05 AM CDT [facility] Comment:REFERENCE RANGE NOT ESTABLISHED 08/20/2020 8:33 AM CDT Lennox Ann MD LABORATORY Final Result [facility] [address] [place] [id number], * (ABNORMAL) COMPREHENSIVE METABOLIC PANEL (08/20/2020 8:33 AM CDT) SODIUM S/P/B 139 136 - 145 MMOL/L 08/20/2020 9:05 AM CDT [facility] POTASSIUM S/P/B 4.2 3.5 - 5.1 MMOL/L 08/20/2020 9:05 AM CDT [facility] CHLORIDE S/P/B 104 98 - 107 MMOL/L 08/20/2020 9:05 AM CDT [facility] CO2 25.9 21.0 - 32.0 MMOL/L 08/20/2020 9:05 AM CDT [facility] GLUCOSE 111(H) 70 - 99 MG/DL 08/20/2020 9:05 AM CDT [facility] Comment: FASTING GLUCOSE 100 TO 125 MG/DL IS CONSISTENT WITH IMPAIRED FASTING GLUCOSE. FASTING GLUCOSE >125 MG/DL IS CONSISTENT WITH DIABETES. RANDOM GLUCOSE >200 MG/DL WITH HYPERGLYCEMIC SYMPTOMS IS CONSISTENT WITH DIABETES. PER ADA GUIDELINES BUN 10 6 - 24 MG/DL 08/20/2020 9:05 AM CDT [facility] CREATININE S/P/B 0.99 0.70 - 1.30 MG/DL 08/20/2020 9:05 AM CDT [facility] CALCIUM S/P/B 8.8 8.4 - 10.5 MG/DL 08/20/2020 9:05 AM CDT [facility] BILIRUBIN TOTAL S/P/B 0.9 0.2 - 1.0 MG/DL 08/20/2020 9:05 AM CDT [facility] Comment: THIS ASSAY IS NOT RECOMMENDED FOR PATIENTS UNDERGOING TREATMENT WITH ELTROMBOPAG DUE TO THE POTENTIAL FOR FALSELY ELEVATED RESULTS. ALKALINE PHOSPHATASE S/P/B 70 45 - 115 U/L 08/20/2020 9:05 AM [facility] AST 26 15 - 37 U/L 08/20/2020 9:05 AM [facility] ALT 51 16 - 63 U/L 08/20/2020 9:05 AM [facility] TOTAL PROTEIN S/P/B 7.3 6.4 - 8.2 G/DL 08/20/2020 9:05 AM [facility] ALBUMIN S/P/B 3.8 3.4 - 5.0 G/DL 08/20/2020 9:05 AM [facility] ANION GAP 9.1 5.0 - 15.0 MMOL/L 08/20/2020 9:05 AM [facility] OSMOLALITY (CALC) 288 MOSM/KG 021 9:05 AM [facility] Comment:REFERENCE RANGE NOT ESTABLISHED EGFR NON-AFR. AMER. >90 >89 ML/MIN/1. 73 M2 08/20/2020 9:05 AM [facility] EGFR AFR. AMER. >90 >89 ML/MIN/1. 73 M2 08/20/2020 9:05 AM [facility] GFR NOTES GFR REFERENCE S: 08/20/2020 9:05 AM [facility] Comment: THE ESTIMATED GFR [...] <15 ml/min/1.73 m2 08/20/2020 8:33 AM CDT us Lennox Ann MD LABORATORY Final Result [facility] [address] [place] [address], documented in this encounter Visit Diagnoses Diagnosis Annual physical exam Routine general medical examination at a health care facility Impaired fasting blood sugar Impaired fasting glucose documented in this encounter Care Teams Seamer Operator Relationship Specialty Start Date End Date Lennox Ann MD [address] [place] [phone] PCP - General INTERNAL MEDICINE 01/16/19 documented as of this encounter
--- OUTSIDE RECORDS SUMMARY | 2024-03-20 09:15 | XMS_ITS | Encounter Summary ---
Author Organization [facility] Address [address] [place] [address]. [place] [address] [place] [address] Care Team Providers Care Shop Coordinator Name Role Phone Unavailable Primary Care Provider Unavailabl e Encounter Details Date Type Department Care Team (Late st Contact Info) Description 02/27/[address] [facility] [address] [place] [address] Bernard Muñoz MD [address] [place] [phone] Social History Tobacco Use Types Packs/Day Years Used Date Smoking Tobacco: Never Assessed Sex and Gender Information Value Date Recorded Sex Assigned at Not on file Legal Sex Male 5:51 PM CIGAR BANDER HAND Gender Identity Not on file Sexual Orientation Not on file documented as of this encounter Plan of Treatment Not on file documented as of this encounter Visit Diagnoses Diagnosis Pain in joint, ankle and foot documented in this encounter
--- OUTSIDE RECORDS SUMMARY | 2024-03-20 09:15 | XMS_ITS | Encounter Summary ---
Author Organization [facility] Address [address] [place] [address]. 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
--- OUTSIDE RECORDS SUMMARY | 2024-03-20 09:15 | XMS_ITS | Encounter Summary ---
Author Organization [facility] Address [address] [place] [address]. [place] [address] [place] [address] Care Team Providers Care Bead Filler Name Role Phone Unavailable Primary Care Provider Unavailabl e Encounter Details Date Type Department Care Team (Late st Contact Info) Description 05/07/[address] 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
--- OUTSIDE RECORDS SUMMARY | 2024-03-20 09:16 | XMS_ITS | Encounter Summary ---
Author Organization [facility] Address [address] [place] [address]. 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
--- OUTSIDE RECORDS SUMMARY | 2024-03-20 09:16 | XMS_ITS | Encounter Summary ---
Author Organization [facility] Address [address] [place] [address]. [place] [address] [place] [address] Care Team Providers Care Loss Prevention Officer Name Role Phone Unavailable Primary Care Provider Unavailabl e Encounter Details Date Type Department Care Team (Late st Contact Info) Description 10/15/[address] 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
--- OUTSIDE RECORDS SUMMARY | 2024-03-20 09:16 | XMS_ITS | Encounter Summary ---
Author Organization [facility] Address [address] [place] [address]. 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
--- OUTSIDE RECORDS SUMMARY | 2024-03-20 09:16 | XMS_ITS | Encounter Summary ---
Author Organization [facility] Address [address] [place] [address]. 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
--- OUTSIDE RECORDS SUMMARY | 2024-03-20 09:16 | XMS_ITS | Encounter Summary ---
Author Organization [facility] Address [address] [place] [address]. 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
--- OUTSIDE RECORDS SUMMARY | 2024-03-20 09:16 | XMS_ITS | Encounter Summary ---
Author Organization [facility] Address [address] [place] [address]. [place] [address] [place] [address] Care Team Providers Care Applications Sales Consultant Name Role Phone Unavailable Primary Care Provider Unavailabl e Encounter Details Date Type Department Care Team (Late st Contact Info) Description 06/13/1995 Abstract [facility] [address] [place] [id number] , Generic Conversion, Social History Tobacco Use Types Packs/Day Years Used Date Smoking Tobacco: Never Assessed Sex and Gender Information Value Date Recorded Sex Assigned at Not on file Legal Sex Male 5:51 PM DRAY DRIVER Gender Identity Not on file Sexual Orientation Not on file documented as of this encounter Plan of Treatment Not on file documented as of this encounter Visit Diagnoses Not on filedocumented in this encounter
--- OUTSIDE RECORDS SUMMARY | 2024-03-20 09:16 | XMS_ITS | Encounter Summary ---
Author Organization [facility] Address [address] [place] [address]. [place] [address] [place] [address] Care Team Providers Care Consultant In Ergonomics And Safety Name Role Phone Unavailable Primary Care Provider Unavailabl e Encounter Details Date Type Department Care Team (Late st Contact Info) Description 01/07/2006 Abstract [facility] [address] [facility] [place] [address] Abhay Sanchez MD [address] [address] Social History Tobacco Use Types Packs/Day Years Used Date Smoking Tobacco: Never Assessed Sex and Gender Information Value Date Recorded Sex Assigned at Not on file Legal Sex Male 5:51 PM CONSTRUCTION SITE MANAGER Gender Identity Not on file Sexual Orientation Not on file documented as of this encounter Plan of Treatment Not on file documented as of this encounter Visit Diagnoses Not on filedocumented in this encounter
--- OUTSIDE RECORDS SUMMARY | 2024-03-20 09:16 | XMS_ITS | Encounter Summary ---
Author Organization [facility] Address [address] [place] [address]. 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
--- OUTSIDE RECORDS SUMMARY | 2024-03-20 09:16 | XMS_ITS | Encounter Summary ---
Author Organization [facility] Address [address] [place] [address]. 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
--- OUTSIDE RECORDS SUMMARY | 2024-03-20 09:16 | XMS_ITS | Encounter Summary ---
Author Organization [facility] Address [address] [place] [address]. 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
--- OUTSIDE RECORDS SUMMARY | 2024-03-20 09:16 | XMS_ITS | Encounter Summary ---
Author Organization [facility] Address [address] [place] [address]. [place] [address] [place] [address] Care Team Providers Care Machine Coremaker Name Role Phone Unavailable Primary Care Provider Unavailabl e Encounter Details Date Type Department Care Team (Late st Contact Info) Description 07/18/[address] 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
--- OUTSIDE RECORDS SUMMARY | 2024-03-20 09:16 | XMS_ITS | Encounter Summary ---
Author Organization [facility] Address [address] [place] [address]. 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
--- OUTSIDE RECORDS SUMMARY | 2024-03-20 09:16 | XMS_ITS | Encounter Summary ---
Author Organization [facility] Address [address] [place] [address]. [place] [address] [place] [address] Care Team Providers Care Endoscopy Technician Name Role Phone Unavailable Primary Care Provider Unavailabl e Encounter Details Date Type Department Care Team (Late st Contact Info) Description 12/13/2000 Abstract [facility] [address] [place] [id number] , Generic Conversion, Social History Tobacco Use Types Packs/Day Years Used Date Smoking Tobacco: Never Assessed Sex and Gender Information Value Date Recorded Sex Assigned at Not on file Legal Sex Male 5:51 PM COMMERCIAL ACCOUNTANT Gender Identity Not on file Sexual Orientation Not on file documented as of this encounter Plan of Treatment Not on file documented as of this encounter Visit Diagnoses Not on filedocumented in this encounter
--- OUTSIDE RECORDS SUMMARY | 2024-03-20 09:16 | XMS_ITS | Encounter Summary ---
Author Organization [facility] Address [address] [place] [address]. [place] [address] [place] [address] Care Team Providers Care Professional Wrestler Name Role Phone Unavailable Primary Care Provider Unavailabl e Encounter Details Date Type Department Care Team (Late st Contact Info) Description 10/08/[address] 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
[2024-04-25 12:46] VITALS: BMI 25.4
--- NOTE | 2024-05-03 09:55 | P.PNAN_ITS ---
Anes - Initial Pre Proc Eval Procedure: Operation Date: 05/04/24 07:30 Proposed Procedures p Screening Colonoscopy - Robert Avelar DO Date/Time: 05/03/24 09:55 Surgeon: Robert Avelar DO Pre Op Diagnosis: Screening for malignant neoplasm of colon Patient Data Age: 49 Gender: M Height: 1.98 m Weight: 99.8 kg Allergies Allergy/AdvReac Type Severity Reaction Status Date / Time No Known Allergies Allergy Verified 04/25/24 12:45 Home Medications ?Medication ?Instructions ?Recorded ?Confirmed ?Type pantoprazole 40 mg tablet,delayed 40 mg PO QAM 04/07/22 04/25/24 History release cyclobenzaprine 10 mg tablet 10 mg PO TID PRN muscle spasm #30 01/20/23 04/25/24 Rx tabs Results Review: All pre-operative results and documents have been reviewed as part of the pre- operative evaluation. [facility] Past Medical History Medical History Back pain Lumbar radiculopathy Lumbar spondylosis Neck pain Surgical History Surgical History H/O neck surgery History of lumbar surgery Family History Family History Other Diabetes mellitus Heart disease Hypertension Social History Social History Smoking packs per day: 1 Smoking cigarettes per day: 20.0 Years smoked: 10 Smoking pack-years: 10.00 Smoking status: Current every day smoker Tobacco type: cigarettes Alcohol intake: current Drinks per week: 8 Substance use: never Substance use type: does not use Lack of Transportation: No Lack of Food: Never True Current Housing: I Have Housing Concerned About Future Housing: No Difficulty Paying Gas/Electric Bills: No Difficulty Paying for Meds: No Currently Unemployed: No Education: Decline to Answer Difficulty w/ Childcare or Family Care: No Living arrangements: with family 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 Informed Consent: The patient's anesthetic plan and its attendant risks and benefits were discussed with the patient/family/POA. Questions were solicited and answers provided to the satisfaction of the patient/family/POA.
--- OUTSIDE RECORDS SUMMARY | 2024-05-04 02:22 | XMS_ITS | Encounter Summary ---
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
--- OUTSIDE RECORDS SUMMARY | 2024-05-04 02:22 | XMS_ITS | Clinical Summary ---
Author Organization [facility] Address [facility] [place] [address] Care Team Providers Care Residential Counselor Name Role Phone Lennox Ann MD Primary Care Provider [phone] Allergies Active Allergy Reactions Criticality Noted Date Comments Hydrocodone Hallucinations 02/08/2024 Medications pantoprazole EC (PROTONIX) 20 MG tablet Take 1 tablet (20 mg total) by mouth daily. Active Encounters Date Type Department Care Team Description 02/08/2024 9:41 AM CLICKER OPERATOR - 02/08/2024 10:53 AM CLICKER OPERATOR [facility] [address] [place] [address] Isaac Sam MD Hand Injury Discharge Disposition: [...] on file Legal Sex Male 5:51 PM CLICKER OPERATOR Gender Identity Not on file Sexual Orientation Not on file Last Filed Vital Signs Vital Sign Reading Time Taken Comments Blood Pressure 151/83 02/08/2024 9:45 AM CLICKER OPERATOR Pulse 90 02/08/2024 9:45 AM CLICKER OPERATOR Temperature 37.3 C (99.2 F) 02/08/2024 9:45 AM CLICKER OPERATOR Respiratory Rate 18 02/08/2024 9:45 AM CLICKER OPERATOR Oxygen Saturation 99% 02/08/2024 10:30 AM CLICKER OPERATOR Inhaled Oxygen Concentration - - Weight 99.8 kg (220 lb) 02/08/2024 9:45 AM CLICKER OPERATOR Height 198.1 cm (6' 6 ) 02/08/2024 9:45 AM CLICKER OPERATOR Body Mass Index 25.42 02/08/2024 9:45 AM CLICKER OPERATOR Plan of Treatment Health Maintenance Due Date [...] season) 2023 Influenza Adult (#1) 2023 Meningococcal B Vaccine Aged Out No l onger eligible based on patient's age to complete this topic Meningococcal Vaccine Aged Out No edwin tanner eligible based on patient's age to complete this topic RSV Immunizations Under 20 Months Aged Out No longer eligible based on patient's age to complete this topic Procedures Procedure Name Priority Date/Time Associated Diagnosis Comments XR HAND LT 3V STAT 02/08/2024 10:08 AM CLICKER OPERATOR from Last 3 Months Results * XR HAND LT 3V (02/08/2024 10:08 AM CLICKER OPERATOR) Anatomical Region Laterality Modality Hand Radiographic Dinorah ging 02/08/2024 10:0 7 AM CLICKER OPERATOR Impressions 02/08/2024 10:23 AM CLICKER OPERATOR IMPRESSION: No acute findings. Ordered By: ISAAC SAM Interpreted By: Conrado Amezcua MD, 02/08/2024 10:07 AM Narrative 02/08/2024 10:23 AM CLICKER OPERATOR [address] [place] [address] Examination: Left hand. Exam time: 0929 hours. Clinical history: Pain after injury. Comparison: 02/21/2008. Technique: Three views. Findings: No fracture, dislocation or other acute bony abnormality is identified. No other significant bone or joint abnormality is noted. The soft tissues are unremarkable. Procedure Note Conrado Amezcua MD - 02/08/[address] [place] [address] Examination: Left hand. Exam time: 0929 hours. [...] Final Result from Last 3 Months Insurance [employer] [facility] ACC[facility] Care Teams Residential Counselor Relationship Specialty Start Date End Date Lennox Ann MD [address] [place] [address] PCP - General INTERNAL MEDICINE 01/16/19
[2024-05-04 06:21] VITALS: BP 140/94; PULSE 77; RESP 20; O2SAT 100; BMI 26.2
[2024-05-04] MEDS: LACTATED RINGERS 1,000 ML 150 ML IV CONT (06:36)
--- NOTE | 2024-05-04 06:55 | WPDANESEPPF ---
Anes - Initial Pre Proc Eval Procedure: Operation Date: 03/14/24 07:30 Proposed Procedures p Screening Colonoscopy - Robert Avelar DO Operation Date: 05/04/24 07:30 Proposed Procedures p Screening Colonoscopy - Robert Avelar DO Date/Time: 05/04/24 06:55 Surgeon: Robert Avelar DO Pre Op Diagnosis: Screening for malignant neoplasm of colon Patient Data Age: 49 Gender: M Height: 1.98 m Weight: 102.7 kg Last Vital Signs Pulse 77 05/04/24 06:21 Resp 20 05/04/24 06:21 BP 140/94 H 05/04/24 06:21 Pulse Ox 100 05/04/24 06:21 O2 Del Method Room Air 05/04/24 06:21 Allergies Allergy/AdvReac Type Severity Reaction Status Date / Time No Known Allergies Allergy Verified 05/04/24 06:20 Home Medications ?Medication ?Instructions ?Recorded ?Confirmed ?Type pantoprazole 40 mg tablet,delayed 40 mg PO QAM 04/07/22 05/04/24 History release cyclobenzaprine 10 mg tablet 10 mg PO TID PRN muscle spasm #30 01/20/23 04/25/24 Rx tabs Patient hx anesthesia problems: none Family hx anesthesia problems: none Results Review: All pre-operative results and documents have been reviewed as part of the pre-operative evaluation. [facility] Past Medical History Medical History Lumbar spondylosis Lumbar radiculopathy Neck pain Back pain Surgical History Surgical History History of lumbar surgery H/O neck surgery Family History Family History Other Diabetes mellitus Heart disease Hypertension Social History Social History Smoking packs per day: 1 Smoking cigarettes per day: 20.0 Years smoked: 10 Smoking pack-years: 10.00 Smoking status: Current every day smoker Tobacco type: cigarettes Alcohol intake: current Drinks per week: 8 Substance use: never Substance use type: does not use Lack of Transportation: No Lack of Food: Never True Current Housing: I Have Housing Concerned About Future Housing: No Difficulty Paying Gas/Electric Bills: No Difficulty Paying for Meds: No Currently Unemployed: No Education: Decline to Answer Difficulty w/ Childcare or Family Care: No Living arrangements: with family 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 Informed Consent: The patient's anesthetic plan and its attendant risks and benefits were discussed with the patient/family/POA. Questions were solicited and answers provided to the satisfaction of the patient/family/POA.
--- NOTE | 2024-05-04 07:21 | PM.IMHP ---
H&P: HPI History of Present Illness Date/Time: 05/04/24 07:21 Chief Complaint: Screening for colorectal cancer Narrative: This is a 49-year-old man who presents for colonoscopy. He has never had a colonoscopy before. He denies family history of colon cancer. He denies hematochezia or melena. Review of Systems Review of Systems: All systems reviewed & are unremarkable except as noted in HPI and below Constitutional: Constitutional: Denies chills, Denies fever(s), Denies headache(s) and Denies weight loss Eyes: Eyes: Denies change in vision ENT: Denies dizziness, Denies headache(s), Denies neck mass and Denies throat swelling Cardiovascular: Cardiovascular: Denies chest pain, Denies lightheadedness and Denies dyspnea Respiratory: Respiratory: Denies cough, Denies dyspnea and Denies wheezing Gastrointestinal: Gastrointestinal: Denies abdominal pain, Denies change in bowel habits, Denies nausea and Denies vomiting Genitourinary: Genitourinary: Denies hematuria and Denies dysuria Musculoskeletal: Musculoskeletal: Reports as per HPI Integumentary/Breasts: Skin/Breast: Reports as per HPI Neurologic: Denies dizziness and Denies headache(s) Allergic/Immunologic: Allergic/Immunologic: Denies throat swelling and Denies wheezing [facility] Past Medical History Medical History Lumbar spondylosis Lumbar radiculopathy Neck pain Back pain Surgical History Surgical History History of lumbar surgery H/O neck surgery Family History Family History Other Diabetes mellitus Heart disease Hypertension Social History Social History Smoking packs per day: 1 Smoking cigarettes per day: 20.0 Years smoked: 10 Smoking pack-years: 10.00 Smoking status: Current every day smoker Tobacco type: cigarettes Alcohol intake: current Drinks per week: 8 Substance use: never Substance use type: does not use Lack of Transportation: No Lack of Food: Never True Current Housing: I Have Housing Concerned About Future Housing: No Difficulty Paying Gas/Electric Bills: No Difficulty Paying for Meds: No Currently Unemployed: No Education: Decline to Answer Difficulty w/ Childcare or Family Care: No Living arrangements: with family 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lergies Home Medications ?Medication ?Instructions ?Recorded ?Confirmed ?Type pantoprazole 40 mg tablet,delayed 40 mg PO QAM 04/07/22 05/04/24 History release cyclobenzaprine 10 mg tablet 10 mg PO TID PRN muscle spasm #30 01/20/23 04/25/24 Rx tabs Allergies Allergy/AdvReac Type Severity Reaction Status Date / Time No Known Allergies Allergy Verified 05/04/24 06:20 Vital Signs Vital Signs - 24 hr 05/04/24 06:21 Pulse Rate 77 Respiratory Rate 20 Blood Pressure 140/94 H Pulse Oximetry 100 Oxygen Delivery Room Air Exam Const: General: no acute distress and alert Orientation/consciousness: patient oriented x3 HENMT: Head: normocephalic and atraumatic Ears: hearing grossly normal bilaterally Face/Nose/Sinus: Normal nares present Mouth: Yes Normal oral and palatal mucosa present Eyes: Periorbital: periorbital findings normal Sclera: sclerae normal EOM: EOMs intact bilaterally Neck: Neck: normal visual inspection, no lymphadenopathy and trachea midline Chest: Chest palpation & inspection: normal inspection of the chest Resp: Effort & Inspection: normal respiratory effort Auscultation: clear to auscultation bilaterally Cardio: Jugular venous distension: no JVD Rate: regular rate Rhythm: regular rhythm Heart sounds: S1 normal heart sound present and S2 normal heart sound present Peripheral pulses: Peripheral pulses 2+ throughout GI: Inspection: normal to inspection GI Palp: Yes Soft to palpation, No Tenderness to palpation present (GI), No Guarding due to palpation present (GI) and No Rebound tenderness present Percussion: Yes normal to percussion Auscultation: normal bowel sounds : General: Yes no CVA tenderness Back/Spine/Pelvis: Back: no CVA tenderness Neuro: General: patient oriented x3, no focal motor deficits and CN's II-XI intact bilaterally Cognition (Neuro): normal cognition Speech: normal speech Motor exam (neuro): 5/5 motor strength present throughout Extrem: General: capillary refill normal and no clubbing, cyanosis or edema Assessment and Plan Assessment and plan (1) Screening for colorectal cancer: Code(s): Z12.11 - Encounter for screening for malignant neoplasm of colon; Z12.12 - Encounter for screening for malignant neoplasm of rectum Status: Acute Assessment and Plan: I have recommended colonoscopy. I have discussed the procedure, risks, benefits, and alternatives. Questions were answered. Patient is agreeable to proceed.
[2024-05-04 07:44] VITALS: BP 104/70; PULSE 67; RESP 18; O2SAT 99
[2024-05-04 07:54] VITALS: BP 108/78; PULSE 57; RESP 15; O2SAT 100
[2024-05-04 08:04] VITALS: BP 113/58; PULSE 64; RESP 19; O2SAT 100
== END 2024-05-04 08:12 | disposition home or self-care (01) ==
PROVIDERS: PCP Internal Medicine; Visit Provider Surgery
PROC: 0DJD8ZZ Inspection of Lower Intestinal Tract, Via Natural or Artificial Opening Endoscopic (ICD-10-PCS; CPT 45378; principal; 2024-05-04 07:30)
DX: Z12.11 Encounter for screening for malignant neoplasm of colon (principal); D12.5 Benign neoplasm of sigmoid colon; K63.5 Polyp of colon; F17.210 Nicotine dependence, cigarettes, uncomplicated
CPT/HCPCS: 45385; 88305; J2003; J2704; J7120

== ENCOUNTER 2024-05-16 14:19 | Outpatient (CLI) | payer OTHER, SELFPAY ==
--- NOTE | ~2024-05-16 | XR_ITS ---
XR hand LT min 3V Ordering provider: Zena Calloway MD History: . M65.4 - Radial styloid tenosynovitis [de Quervain] . Comparison: None. FINDINGS: BONES: No acute fracture or dislocation. JOINT SPACES: Well maintained. SOFT TISSUES: Unremarkable. IMPRESSION: No acute osseous abnormality left hand. Reviewed, dictated and finalized at location A.
--- NOTE | ~2024-05-16 | XR_ITS ---
XR wrist LT min 3V Ordering provider: Zena Calloway MD History: . M65.4 - Radial styloid tenosynovitis [de Quervain] . Comparison: None. FINDINGS: BONES: No acute fracture or dislocation. No definite scaphoid fracture. JOINT SPACES: Well maintained. SOFT TISSUES: Normal. IMPRESSION: No acute osseous abnormality left wrist. Reviewed, dictated and finalized at location A.
--- OUTSIDE RECORDS SUMMARY | 2024-05-16 16:19 | XMS_ITS | Encounter Summary ---
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
--- OUTSIDE RECORDS SUMMARY | 2024-05-16 16:19 | XMS_ITS | Clinical Summary ---
Author Organization [facility] Address [facility] [place] [address] Care Team Providers Care Marketing Reporting Analyst Name Role Phone Lennox Ann MD Primary Care Provider [phone] Allergies Active Allergy Reactions Criticality Noted Date Comments Hydrocodone Hallucinations 02/08/2024 Medications pantoprazole EC (PROTONIX) 20 MG tablet Take 1 tablet (20 mg total) by mouth daily. 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 Gender Identity Not on file Sexual Orientation Not on file Last Filed Vital Signs Vital Sign Reading Time Taken Comments Blood Pressure 151/83 02/08/2024 9:45 AM HEEL BUILDER MACHINE Pulse 90 02/08/2024 9:45 AM HEEL BUILDER MACHINE Temperature 37.3 C (99.2 F) 02/08/2024 9:45 AM HEEL BUILDER MACHINE Respiratory Rate 18 02/08/2024 9:45 AM HEEL BUILDER MACHINE Oxygen Saturation 99% 02/08/2024 10:30 AM HEEL BUILDER MACHINE Inhaled Oxygen Concentration - - Weight 99.8 kg (220 lb) 02/08/2024 9:45 AM HEEL BUILDER MACHINE Height 198.1 cm (6' 6 ) 02/08/2024 9:45 AM HEEL BUILDER MACHINE Body Mass Index 25.42 02/08/2024 9:45 AM HEEL BUILDER MACHINE Plan of Treatment Health Maintenance Due Date Last Done Comments Colorectal Cancer Screening Colonoscopy ( Years) 1975 Annual Physical 1978 Pneumococcal Vaccine: Pediat rics (0 to 5 Years) and At-Risk Patients (6 to 64 Years) (1 of 2 - PCV) 1981 Hepatitis C 1993 DTaP, Tdap and Td Vaccines ( 1 - Tdap) 1994 Hepatitis B Vaccines (1 of 3 - 19+ 3-dose series) 1994 COVID-19 Vaccine (1 - 2023-2 5 season) 2023 Influenza Adult (#1) 2023 Meningococcal B Vaccine Aged Out No l onger eligible based on patient's age to complete this topic Meningococcal Vaccine Aged Out No edwin tanner eligible based on patient's age to complete this topic RSV Immunizations Under 20 Months Aged Out No longer eligible based on patient's age to complete this topic Insurance [employer] OPEN ACCESS [facility] Care Teams Marketing Reporting Analyst Relationship Specialty Start Date End Date Lennox Ann MD [address] [place] [address] PCP - General INTERNAL MEDICINE 01/16/19
== END 2024-05-16 14:20 | disposition home or self-care (01) ==
PROVIDERS: PCP Internal Medicine; Visit Provider Plastic Surgery
DX: M65.4 Radial styloid tenosynovitis [de Quervain] (principal)
CPT/HCPCS: 73110; 73130

== ENCOUNTER 2024-08-24 07:14 | Day surgery (SDC) | payer OTHER, SELFPAY ==
--- NOTE | 2024-08-24 06:44 | WPDHPUPDATE1 ---
History and Physical Update Update Date/Time: 08/24/24 06:44 Patient seen and examined in pre-operative holding area. No interval change in medical history or symptoms. Patient recalls previous discussion of benefits and alternatives to procedure. Continues to desire to proceed with left first extensor compartment release. Reviewed procedure, post-op expectations and risks including but not limited to bleeding, infection, injury to tendon/nerve/vessel, decreased hand function, stiffness, RSD, no change or worsening of symptoms. I discussed the possible use of assistants and their participation in the case. Patient stated understanding and signed the consent form wishing to proceed.
--- NOTE | 2024-08-24 06:44 | W.PM.PROC2 ---
Procedure Note - Detailed Date of Procedure 08/24/24 Pre-op Diagnosis Left de Qurvains Tenosynovitis Post-op Diagnosis Same Procedure Performed left first extensor compartment release Surgeon Zena Calloway MD [employer] yanci goodman pa-c Anesthesia MAC Description of Procedure INFORMED CONSENT: The patient was seen and examined and marked in the pre-op area.? The patient signed the consent form. PROCEDURE IN DETAIL:The patient taken back to OR on the stretcher in supine position. Time out performed with anesthesia, surgeon and staff agreeing on patient's name site and surgery to be performed SCDs were placed on the lower extremities and inflated. A tourniquet was placed on {left} upper extremity and antibiotics given IV After anesthesia administered sedation I injected {7}cc 1%lido with epi and 0.5% marcaine plain at the operative site The?{left upper extremity}?was prepped and draped in sterile fashion the??left upper extremity} was? exsanguinated with Esmarch bandage and tourniquet inflated to 250mmHg I proceeded with making a longitudinal incision over the left 1st extensor compartment through skin and dermis with a 15 blade scalpel. Littler scissors were used to spread down to the extensor sheath. Branch of the dorsal radial sensory nerve was identified and retracted dorsally and protected throughout the procedure. I made an incision on the dorsal aspect of the 1st extensor compartment sheath with 15 blade scalpel. Littler scissors were then used to spread above and below it proximally and distally completing the transection entirely. The APL and EPB tendons were inspected and free of masses and synovitis. They were gliding smoothly in the sheath. A subesheath of EPB was identified and also released. There was no subluxation. I irrigated with normal saline. Closure with 3-0 Vicryl for dermis and 4-0 Monocryl for subcuticular closure. A dressing of Dermabond, 4x4, bharat, and an lobo bandage was applied after the tourniquet was let down noting the hand was warm and well perfused. The patient was then awaken from anesthesia and transferred to the recovery room in stable condition.? Complications - none EBL- 0cc Disposition - home in stable condition Yanci Goodman PA-C was essential for positioning, retraction, closure and dressing placement [facility] Billing Surgery - Charge Forward: Surgery Billing (-AS for yanci)
[2024-08-24 07:30] VITALS: BP 105/85; PULSE 70; RESP 20; TEMP 36.8; O2SAT 99
[2024-08-24] MEDS: LACTATED RINGERS 1,000 ML 30 ML IV CONT (07:45)
--- NOTE | 2024-08-24 08:03 | WPDANESEPP ---
Anes - Eval Pre Procedure Procedure: Operation Date: 08/24/24 08:45 Proposed Procedures p Left First Extensor Compartment Release - Zena Calloway MD Date/Time: 08/24/24 08:03 Pre Op Diagnosis: Left de Qurvains Tenosynovitis Patient Data Age: 49 Gender: M Height: 1.98 m Weight: 100.7 kg Last Vital Signs Temp 98.2 F 08/24/24 07:30 Pulse 70 08/24/24 07:30 Resp 20 08/24/24 07:30 BP 105/85 08/24/24 07:30 Pulse Ox 99 08/24/24 07:30 O2 Del Method Room Air 08/24/24 07:30 Allergies Allergy/AdvReac Type Severity Reaction Status Date / Time No Known Allergies Allergy Verified 08/24/24 07:51 Home Medications ?Medication ?Instructions ?Recorded ?Confirmed ?Type pantoprazole 40 mg tablet,delayed 40 mg PO QAM 04/07/22 08/24/24 History release Patient hx anesthesia problems: none Family hx anesthesia problems: none Results Review: All pre-operative results and documents have been reviewed as part of the pre-operative evaluation. [facility] Past Medical History Medical History Lumbar spondylosis Lumbar radiculopathy Neck pain Back pain Surgical History Surgical History History of lumbar surgery H/O neck surgery Family History Family History Other Diabetes mellitus Heart disease Hypertension Social History Social History Smoking packs per day: 1 Smoking cigarettes per day: 20.0 Years smoked: 10 Smoking pack-years: 10.00 Smoking status: Current every day smoker Tobacco type: cigarettes Alcohol intake: current Drinks per week: 8 Substance use: never Substance use type: does not use Lack of Transportation: No Lack of Food: Never True Current Housing: I Have Housing Concerned About Future Housing: No Difficulty Paying Gas/Electric Bills: No Difficulty Paying for Meds: No Currently Unemployed: No Education: Decline to Answer Difficulty w/ Childcare or Family Care: No Living arrangements: with family 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
--- NOTE | 2024-08-24 08:41 | P.PNAN_ITS ---
Anes - Eval Pre Procedure Procedure: Operation Date: 08/24/24 08:45 Proposed Procedures p Left First Extensor Compartment Release - Zena Calloway MD Date/Time: 08/24/24 08:41 Pre Op Diagnosis: Left de Qurvains Tenosynovitis Patient Data Age: 49 Gender: M Height: 1.98 m Weight: 100.7 kg Last Vital Signs Temp 98.2 F 08/24/24 07:30 Pulse 70 08/24/24 07:30 Resp 20 08/24/24 07:30 BP 105/85 08/24/24 07:30 Pulse Ox 99 08/24/24 07:30 O2 Del Method Room Air 08/24/24 07:30 Allergies Allergy/AdvReac Type Severity Reaction Status Date / Time No Known Allergies Allergy Verified 08/24/24 07:51 Home Medications ?Medication ?Instructions ?Recorded ?Confirmed ?Type pantoprazole 40 mg tablet,delayed 40 mg PO QAM 04/07/22 08/24/24 History release tramadol 50 mg tablet 50 mg PO Q6H PRN pain #12 tabs 08/24/24 Rx Patient hx anesthesia problems: none Family hx anesthesia problems: none Results Review: All pre-operative results and documents have been reviewed as part of the pre- operative evaluation. [facility] Past Medical History Medical History Lumbar spondylosis Lumbar radiculopathy Neck pain Back pain Surgical History Surgical History History of lumbar surgery H/O neck surgery Family History Family History Other Diabetes mellitus Heart disease Hypertension Social History Social History Smoking packs per day: 1 Smoking cigarettes per day: 20.0 Years smoked: 10 Smoking pack-years: 10.00 Smoking status: Current every day smoker Tobacco type: cigarettes Alcohol intake: current Drinks per week: 8 Substance use: never Substance use type: does not use Lack of Transportation: No Lack of Food: Never True Current Housing: I Have Housing Concerned About Future Housing: No Difficulty Paying Gas/Electric Bills: No Difficulty Paying for Meds: No Currently Unemployed: No Education: Decline to Answer Difficulty w/ Childcare or Family Care: No Living arrangements: with family 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
[2024-08-24] MEDS: ceFAZolin SODIUM 2 GM/20 ML SW SYRINGE IV PUSH (08:48)
[2024-08-24] MEDS: BUPivacaine HCL 0.5% 10 ML AMP 2 ML INFILTRATE (08:52)
[2024-08-24] MEDS: LIDOCAINE 1% LOCAL INJ 10 ML VIAL 2 ML INFILTRATE (08:52)
[2024-08-24 09:09] VITALS: BP 110/87; PULSE 67; RESP 12; O2SAT 97
--- NOTE | 2024-08-24 09:17 | WPDANESPN ---
Anes - Prog Note Post-Op Date/Time: 08/24/24 09:17 Vital Signs: Last Vital Signs Temp 98.2 F 08/24/24 07:30 Pulse 70 08/24/24 07:30 Resp 20 08/24/24 07:30 BP 105/85 08/24/24 07:30 Pulse Ox 99 08/24/24 07:30 O2 Del Method Room Air 08/24/24 07:30 Pain Score (VAS): NONE Patient Feedback: Patient satisfied with anesthetic care.
[2024-08-24 09:19] VITALS: BP 97/68; PULSE 60; RESP 15; O2SAT 96
[2024-08-24 09:29] VITALS: BP 105/77; PULSE 55; RESP 14; O2SAT 99
[2024-08-24 09:39] VITALS: BP 105/77; PULSE 61; RESP 14; O2SAT 100
== END 2024-08-24 09:50 | disposition home or self-care (01) ==
PROVIDERS: PCP Internal Medicine; Visit Provider Plastic Surgery
PROC: (CPT 25000; principal; 2024-08-24 08:45)
DX: M65.4 Radial styloid tenosynovitis [de Quervain] (principal)
CPT/HCPCS: 25000